=== PATIENT | female | born 1955 | race African-American/Black ===

== ENCOUNTER 2022-09-18 18:56 | Observation (INO) | payer MEDICARE, SELFPAY ==
[2022-09-18 19:05] VITALS: BP 151/81; PULSE 92; RESP 18; TEMP 37; O2SAT 99; BMI 40.8
--- NOTE | 2022-09-18 19:16 | PC.NURSE ---
Pt arrived to floor via [facility] @ 1900
--- NOTE | 2022-09-18 19:43 | EXP.HP ---
History of Present Illness *Admission Date: 09/18/22 *Reason for visit:: Dyspnea *History of present illness: Ms. Norton is a 67-year-old female with a past medical history of Hypertension, Hyperlipidemia, COPD/Asthma overlap syndrome, Beta 2/Alpha 4 Thalassemia, Breast Cancer s/p Lumpectomy. She presents as a transfer from an [facility] due to an acute episode of shortness of air and difficulty breathing that occurred right after presybeterian. The patient was seen on admission to the medical surgical unit. She reports that after presybeterian she was sitting and had an acute episode of shortness of air, she thought it was her asthma and attempted to take inhalers and nebulizers but could not get it to work. She reports feeling hot, but denies dizziness, chest pain or nausea. She called 911 and was taken to [facility] by EMS. On EMS arrival to the patient's home per records she received Solu-Medrol and was placed on 2L nasal cannula. In the ER at the outside hospital records reviewed showed that the patient had an EKG that showed high sensitivity troponin of 71.8, repeat was 250.5. EKG showed NSR with no ST segment elevation or depression with rate of 93. BNP was 507. CBC and CMP were unremarkable. VBG showed a modeerate hypoxemia with pO2 51 and SpO2 was 86 on 21% FiO2. In the ER at the [facility] the patient received Lasix 20 mg iv, Nitroglycerin paste, ASA 81 mg and Plavix 300 mg. The ER Physician spoke with Cardiology and the patient was sent to [facility] for evaluation by Cardiology. On arrival to [facility] she is on room air with oxygen saturation of 99%. Her admitting diagnosis is NSTEMI. Cardiology will be consulted to see. Further labs and testing will be performed. The plan of care was discussed with the patient and her brother at bedside on admission. Both verbalized understanding and agreement with the plan of care. [facility] Disclaimer: The information contained in this section may have been updated after the patient was seen, as this information can be updated by other users. Medical History (Updated 09/18/22 @ 20:58 by Ander Otoole DNP) Asthma-COPD overlap syndrome Breast cancer Thalassemia alpha carrier Surgical History H/O lumpectomy Hx of tonsillectomy Social History (Updated 09/18/22 @ 20:16 by Domenico Bello RN) Smoking Status: Never smoker alcohol intake: never current occupational status: employed Travel in the last 8 weeks: None Review of Systems Review of Systems Review of systems:: pertinent systems reviewed and negative unless documented below Constitutional Constitutional: Reports system reviewed and no additional complaints, except as documented Eyes Eyes: Reports system reviewed and no additional complaints, except as documented ENT Ears, Nose, Mouth, and Throat: Reports system reviewed and no additional complaints, except as documented *Cardiovascular Cardiovascular: Reports dyspnea and Reports leg edema *Respiratory Respiratory: Reports dyspnea *Gastrointestinal Gastrointestinal: Reports system reviewed and no additional complaints, except as documented *Genitourinary Genitourinary: Reports system reviewed and no additional complaints, except as documented *Musculoskeletal Musculoskeletal: Reports system reviewed and no additional complaints, except as documented Integumentary/Breasts Skin/Breast: Reports system reviewed and no additional complaints, except as documented *Neurologic Neurologic: Reports system reviewed and no additional complaints, except as documented Psychiatric Psychiatric: Reports system reviewed and no additional complaints, except as documented Endocrine Endocrine: Reports flushing Hematologic/Lymphatic Hematologic/Lymphatic: Reports system reviewed and no additional complaints, except as documented Allergic/Immunologic Allergic/Immunologic:
[2022-09-18 20:00] VITALS: PULSE 90; O2SAT 97
--- NOTE | 2022-09-18 20:11 | ECG_ITS ---
APPROVED REPORT Exam: Resting ECG HR:91 bpm ECG Measurements Heart Rate 91 AXES AZ 175 P 78 QRSd 83 QRS 60 QT 398 T 63 QTc 446 Conclusion SINUS RHYTHM POSSIBLE RIGHT ATRIAL ENLARGEMENT [0.25mV P-WAVE] BORDERLINE ECG UNCONFIRMED REPORT Electronically signed by : Marko Grant MD 09/19/2022 19:50:31
[2022-09-18 20:16] LABS: Adenovirus,PCR Not Detected (NotDetected); Coronavirus 229E Not Detected (NotDetected); Coronavirus NL63 Not Detected (NotDetected); Coronavirus OC43 Not Detected (NotDetected); Coronovirus HKU1,PCR Not Detected (NotDetected); Human Metapneumovirus Not Detected (NotDetected); Rhinovirus/Enterovirus Not Detected (NotDetected)
[2022-09-18 20:17] LABS: Bordetella Pertussis Not Detected (NotDetected); Chlamydophila Pneumoniae, PCR Not Detected (NotDetected); Coronavirus 19, PCR Not Detected (NotDetected); Influenza A, PCR Not Detected (NotDetected); Influenza AH1, 2009 Not Detected (NotDetected); Influenza AH1, PCR Not Detected (NotDetected); Influenza AH3,PCR Not Detected (NotDetected); Influenza B, PCR Not Detected (NotDetected); Mycoplasma Pneumoniae, PCR Not Detected (NotDetected); Parainfluenza 1, PCR Not Detected (NotDetected); Parainfluenza 2, PCR Not Detected (NotDetected); Parainfluenza 3, PCR Not Detected (NotDetected); Parainfluenza 4, PCR Not Detected (NotDetected); Respiratory Syncytial Virus Not Detected (NotDetected)
[2022-09-18 20:45] LABS: Basophils % 0.4 % (0.1-2.0); Eosinophils % 0.4 % (0.1-12.0); Hematocrit 40.1 % (37.0-47.0); Hemoglobin 12.9 g/dL (12.2-16.2); Lymphocytes # 1.1 K/mm3 (0.7-4.5); Lymphocytes % 14.3 % (10-50); Mean Corpuscular HGB Conc 32.3 g/dL (31.8-35.4); Mean Corpuscular Hemoglobin 27.3 pg (27.0-31.2); Mean Corpuscular Volume 84.5 fl (81-99); Mean Platelet Volume 7.7 fl (7.4-10.4); Monocytes # 0.1 K/mm3 (0.1-1.0); Monocytes % 1.3 % (1.7-9.3); Neutrophils # 6.3 K/mm3 (1.8-7.8); Neutrophils % 83.6 % (37.0-80.0); Platelet Count 299 K/mm3 (142-424); Red Blood Count 4.74 M/mm3 (4.20-5.40); Red Cell Distribution Width 14.8 % (11.5-17.5); White Blood Count 7.5 K/mm3 (4.8-10.8)
[2022-09-18 20:53] LABS: Alanine Aminotransferase 34 U/L (12-78); Albumin Level 4.7 g/dl (3.5-5.0); Albumin/Globulin Ratio 1.3 (1.1-1.8); Alkaline Phosphatase 179 U/L (38-126); Anion Gap 12.7 mEq/L (5-15); Aspartate Amino Transferase 36 U/L (14-36); Bilirubin,Total 0.5 mg/dl (0.2-1.3); Blood Urea Nitrogen 15 mg/dl (7-17); Calcium 9.4 mg/dl (8.4-10.2); Carbon Dioxide 29 mmol/L (22.0-30.0); Chloride 102 mmol/L (98-107); Creatinine Clearance Estimated 83 mL/min (50-200); Estimated Glomerular Filt Rate 84 ml/min (>60); GFR (African American) 101 ML/MIN (>60); Globulin 3.6 g/dL (1.3-3.2); Glucose 139 mg/dl (74-100); Magnesium 2.1 mg/dl (1.6-2.3); Potassium 3.7 mmoL/L (3.5-5.1); Sodium 140 mmol/L (136-145); Total Protein,Serum 8.3 g/dl (6.3-8.2)
[2022-09-18 20:58] LABS: D-Dimer 1.08 ug/mL (0.0-0.5)
[2022-09-18 21:04] LABS: Troponin I 0.17 ng/ml (0.00-0.034)
[2022-09-18 21:22] LABS: Thyroid Stimulating Hormone 0.25 uIU/mL (0.465-4.68)
[2022-09-18 21:52] LABS: Hemoglobin A1C 5.8 % (4.0-6.0)
[2022-09-18 22:02] LABS: Free T4 (Free Thyroxine) 1.28 ng/dl (0.78-2.19)
--- NOTE | 2022-09-18 22:11 | EXP.EVENT.NO ---
basketball scout called and stated iv site had infiltrated with contrast. Following hospital protocol, warm compress, elevation, close clinical monitoring. Patient did not receive CT tonight. IV site in LUE No blistering, patient denies numbness, tingling of extremity, good radial pulses.
--- NOTE | 2022-09-18 22:44 | PC.NURSE ---
Addendum entered by Domenico Bello RN 09/18/22 23:24: *cold compress to left upper arm. Original Note: Radiology states iv 18g L AC blew and infiltrated after contrast given. Left arm is with warm pad and elevated on a pillow above her chest.
[2022-09-18 23:36] LABS: Troponin I 0.22 ng/ml (0.00-0.034)
--- NOTE | 2022-09-18 23:39 | PC.NURSE ---
Ander COPPOLA called about pt's troponin of 0.22 from lab.
[2022-09-18 23:45] VITALS: BP 125/72; PULSE 100; RESP 16; TEMP 36.6; O2SAT 98
[2022-09-19] VITALS (20 sets, daily range): BP systolic 109–135; BP diastolic 47–87; PULSE 77–91; RESP 16–20; TEMP 36.4–37.1; O2SAT 93–99; BMI 41.1
--- NOTE | 2022-09-19 | IR_ITS ---
APPROVED REPORT Patient Location: [facility] Publisher: MELONY Tolentino RT (R) PROCEDURES Left heart catheterization Left ventriculogram Selective coronary angiogram INDICATION Elevated troponin, Acute non-ST elevation myocardial infarction Informed consent was obtained prior to the procedure. COMPLICATIONS None Estimated Blood Loss: Less than 10 ml TECHNIQUE One percent lidocaine used to anesthetize the right anterior aspect of the wrist. The right radial artery was accessed via the Seldinger technique. A 6 Polish sheath was placed in the right radial artery. 150 mg magnesium sulfate, 800 mcg of nitroglycerin, 1mg Lidocaine and 5000 U Heparin were given through the arterial sheath. The papa catheter was also used to perform left heart catheterization, left ventriculogram and selective coronary angiogram. At the end of the procedure the sheath was removed good hemostasis was achieved using Traclet band, patient was transferred to the postop holding area in stable condition. ANGIOGRAPHIC RESULTS The left main artery Normal The left anterior descending artery Large and normal The circumflex artery Dominant normal The right coronary artery Normal The ROBERTO ventriculogram reveals 65 to 70% The left ventricular end-diastolic pressure 10 mmHg IMPRESSION Normal coronary arteries Normal ejection fraction Normal left ventricular end-diastolic pressure PLAN 1. Evaluation of noncardiac symptoms Electronically signed by : Linus Mcdowell MD 09/19/2022 13:51:26
--- NOTE | 2022-09-19 00:35 | PC.NURSE ---
NURSE PRACTITIONER SAID TO WAIT AND PERFORM THE TEST 09-19-22 AFTER CARDIOLOGY HAS SEEN THE PATIENT AND DR. PEACOCK HAS COME IN MAYBE AROUND 9 AM AND SEE IF THE PROCEDURE IS STILL NEEDED BEFORE PERFORMING.
[2022-09-19 01:33] LABS: Troponin I 0.26 ng/ml (0.00-0.034)
--- NOTE | 2022-09-19 01:58 | PC.NURSE ---
Ander COPPOLA called about pt's troponin of of 0.26.
[2022-09-19 05:01] LABS: Chol/HDL Ratio 2.9 (1-3.5); Cholesterol 253 mg/dl (140-200); HDL Cholesterol 87 mg/dl (40-60); Triglycerides 104 mg/dl (30-150); VLDL Cholesterol 21 mg/dL (0-40)
--- NOTE | 2022-09-19 05:20 | PC.NURSE ---
Aox4, up ad mandi, 97% on RA, NPO after MN for possible heart cath, 20g L w sl locked, L upper arm has decreased in swelling from iv that blew during CT IV contrast, no changes noted.
[2022-09-19 05:30] LABS: Troponin I 0.25 ng/ml (0.00-0.034)
[2022-09-19 07:30] LABS: Chloride 103 mmol/L (98-107); Potassium 3.9 mmoL/L (3.5-5.1); Sodium 139 mmol/L (136-145)
[2022-09-19 07:32] LABS: Blood Urea Nitrogen 20 mg/dl (7-17); Creatinine Clearance Estimated 38 mL/min (50-200); Estimated Glomerular Filt Rate 72 ml/min (>60); GFR (African American) 87 ML/MIN (>60)
[2022-09-19 07:33] LABS: Alanine Aminotransferase 35 U/L (12-78); Albumin Level 4.7 g/dl (3.5-5.0); Albumin/Globulin Ratio 1.2 (1.1-1.8); Alkaline Phosphatase 166 U/L (38-126); Anion Gap 12.9 mEq/L (5-15); Aspartate Amino Transferase 42 U/L (14-36); Basophils % 0.4 % (0.1-2.0); Bilirubin,Total 0.6 mg/dl (0.2-1.3); Calcium 9.3 mg/dl (8.4-10.2); Carbon Dioxide 27 mmol/L (22.0-30.0); Eosinophils # 0.1 K/mm3 (0.0-0.4); Eosinophils % 1.4 % (0.1-12.0); Globulin 3.9 g/dL (1.3-3.2); Glucose 137 mg/dl (74-100); Hematocrit 39.4 % (37.0-47.0); Hemoglobin 12.7 g/dL (12.2-16.2); Lymphocytes # 1.5 K/mm3 (0.7-4.5); Lymphocytes % 16.1 % (10-50); Mean Corpuscular HGB Conc 32.3 g/dL (31.8-35.4); Mean Corpuscular Hemoglobin 27.5 pg (27.0-31.2); Mean Corpuscular Volume 85.3 fl (81-99); Mean Platelet Volume 7.7 fl (7.4-10.4); Monocytes # 0.2 K/mm3 (0.1-1.0); Monocytes % 1.9 % (1.7-9.3); Neutrophils # 7.6 K/mm3 (1.8-7.8); Neutrophils % 80.2 % (37.0-80.0); Platelet Count 344 K/mm3 (142-424); Red Blood Count 4.62 M/mm3 (4.20-5.40); Red Cell Distribution Width 14.8 % (11.5-17.5); Total Protein,Serum 8.6 g/dl (6.3-8.2); White Blood Count 9.5 K/mm3 (4.8-10.8)
--- NOTE | 2022-09-19 08:10 | PC.NURSE ---
left arm elevated on rolled blankets, patient rates pain in left upper arm at a 4 on a 10 scale, no drainage noted from IV infiltration site. Patient denies tingling and numbness, she is able to to move left hand and fingers without issue.
--- NOTE | 2022-09-19 08:10 | HMH.PHAINT1 ---
Pharmacy Intervention Comments: Reconciled patient's home medications using patient interview and pharmacy fill history.
--- NOTE | 2022-09-19 09:10 | EXP.CARD.CON ---
History of Present Illness History of Present Illness Consult date: 09/19/22 Requesting physician: Chivo Torres Consult reason: chest pain Chief complaint: chest pain, SOA Additional Medical History:: 1. Hypertension 2. Morbid obesity 3. Asthma/COPD overlap syndrome A. JOSE ANGEL with use of CPAP machine 4. Thalassemia, followed by hematology 5. History of right-sided breast cancer with lumpectomy and 14 lymph nodes removed 2001 A. Chemotherapy and radiation therapy 6. CAD A. History of abnormal stress test 2021 with resultant cardiac cath per patient at [facility] showing no significant stenosis, August 2021 7. Hyperlipidemia, on statin therapy A. LDL 80, 09/19/2022 History of present illness: Ms. Norton is a 67-year-old female with a past medical history of Hypertension, Hyperlipidemia, COPD/Asthma overlap syndrome, Beta 2/Alpha 4 Thalassemia, Breast Cancer s/p Lumpectomy. She presents as a transfer from an [facility] due to an acute episode of shortness of air and difficulty breathing that occurred right after orthodoxy.? The patient was seen on admission to the medical surgical unit.? She reports that after orthodoxy she was sitting and had an acute episode of shortness of air, she thought it was her asthma and attempted to take inhalers and nebulizers but could not get it to work.? She reports feeling hot, but denies dizziness, chest pain or nausea.? She called 911 and was taken to [facility] by EMS.? On EMS arrival to the patient's home per records she received Solu-Medrol and was placed on 2L nasal cannula.? In the ER at the outside hospital records reviewed showed that the patient had an EKG that showed high sensitivity troponin of 71.8, repeat was 250.5.? EKG showed NSR with no ST segment elevation or depression with rate of 93.? BNP was 507.? CBC and CMP were unremarkable. VBG showed a moderate hypoxemia with pO2 51 and SpO2 was 86 on 21% FiO2. ? In the ER at the [facility] the patient received Lasix 20 mg iv, Nitroglycerin paste, ASA 81 mg and Plavix 300 mg.? The ER Physician spoke with Cardiology and the patient was sent to [facility] for evaluation by Cardiology.? On arrival to [facility] she is on room air with oxygen saturation of 99%.? Her admitting diagnosis is NSTEMI.? Cardiology will be consulted to see.? Further labs and testing will be performed.? The plan of care was discussed with the patient and her brother at bedside on admission.? Both verbalized understanding and agreement with the plan of care.? The above per Ander Otoole DNP, for the Hospitalist service. Patient confirms events as noted above. Regarding cardiac history she states she had an abnormal stress test in August of last year. She reportedly had a cardiac catheterization at [facility] which revealed no significant stenosis and no need for stents. We are in the process of trying to obtain those records at this time. Patient did have nitroglycerin paste applied overnight with complaints of headache. Nitropaste was removed this a.m. She does not smoke and is not a diabetic. Elevated D-dimer last evening which prompted an attempt at a CT angio of the chest to rule out pulmonary embolus but due to contrast infiltration of the left arm this was canceled. Outside hospital high-sensitivity troponins noted to be elevated as above with troponins here elevated at 0.17 and peaking at 0.26 now trending down to 0.25 this morning. Patient denies any chest pain at this time. There is tenderness with palpation of the sternal area and into the area of her previous lumpectomy. Patient relates right-sided discomfort intermittently over the last year without etiology by work-up from her hone operator Dr. Howard in [place], [place]. She has also had right lower extremity swelling without etiology as well. Right lower extremity does appear slightly larger than the left but with no pitting edema. PFSH PFS Disclai
--- NOTE | 2022-09-19 13:21 | PC.NURSE ---
Patient going to soap slabber for procedure.
--- NOTE | 2022-09-19 14:25 | PC.NURSE ---
4x4 covered with tegaderm noted to right groin form femoral access, dressing CDI.
--- NOTE | 2022-09-19 16:27 | EXP.DC.SUM ---
General Admission date:: 09/18/22 Discharge date: 09/19/22 HPI HPI HPI: Ms. Norton is a 67-year-old female with a past medical history of Hypertension, Hyperlipidemia, COPD/Asthma overlap syndrome, Beta 2/Alpha 4 Thalassemia, Breast Cancer s/p Lumpectomy. She presents as a transfer from an [facility] due to an acute episode of shortness of air and difficulty breathing that occurred right after yarsanism. The patient was seen on admission to the medical surgical unit. She reports that after yarsanism she was sitting and had an acute episode of shortness of air, she thought it was her asthma and attempted to take inhalers and nebulizers but could not get it to work. She reports feeling hot, but denies dizziness, chest pain or nausea. She called 911 and was taken to [facility] by EMS. On EMS arrival to the patient's home per records she received Solu-Medrol and was placed on 2L nasal cannula. In the ER at the outside hospital records reviewed showed that the patient had an EKG that showed high sensitivity troponin of 71.8, repeat was 250.5. EKG showed NSR with no ST segment elevation or depression with rate of 93. BNP was 507. CBC and CMP were unremarkable. VBG showed a modeerate hypoxemia with pO2 51 and SpO2 was 86 on 21% FiO2. In the ER at the [facility] the patient received Lasix 20 mg iv, Nitroglycerin paste, ASA 81 mg and Plavix 300 mg. The ER Physician spoke with Cardiology and the patient was sent to [facility] for evaluation by Cardiology. On arrival to [facility] she is on room air with oxygen saturation of 99%. Her admitting diagnosis is NSTEMI. Cardiology will be consulted to see. Further labs and testing will be performed. The plan of care was discussed with the patient and her brother at bedside on admission. Both verbalized understanding and agreement with the plan of care. Hospital Course Hospital Course Hospital Course: Pleasant 67-year-old female who presented to [facility] with tightness of chest and shortness of breath. [place] she was having an asthma/COPD attack and was started on her home rescue inhaler therapy. Did not feel she had good response. Went to the ER because of shortness of breath. On presentation found to have elevation in high-sensitivity troponin. [facility] consulted for transfer. Problems addressed as follows: Chest pain with elevated troponins consistent with non-ST elevation NV. - Cardiology consulted. Given patient's symptoms and troponin elevation, was taken for left heart cath. Found to have no significant stenosis or occlusions. Heart function normal. Echocardiogram also obtained showing preserved ejection fraction. At this time, there is no cardiac etiology for patient's chest pain. Suspect troponin elevation which was minor was secondary to type II NSTEMI, supply/demand mismatch with stress of her asthma attack. Given her normal coronary, medically manage. Recommend eval for other etiologies of chest pain. AsthmaCOPD/JOSE ANGEL overlap syndrome -Continue home inhaler treatment. By the time patient arrived to our facility, she had no wheezing, shortness of breath, oxygen requirement. Concern for anxiety component. Further eval with chief media officer as an outpatient. Hypertension, controlled on current medications, continue home regimen Hyperlipidemia, continue statin therapy Medically stable for discharge home. Follow-up with PCP in the next 1 to 2 weeks. Patient symptoms noncardiac. Exam Data for Last 24 hours Vital signs and Labs for Last 24 Hours: Temp Pulse Resp BP Pulse Ox 98.7 F 83 17 119/65 93 L 09/19/22 14:40 09/19/22 14:40 09/19/22 14:40 09/19/22 14:40 09/19/22 14:40 Laboratory Results - last 24 hr 09/18/22 19:58: WBC 7.5, RBC 4.74, Hgb 12.9, Hct 40.1, MCV 84.5, MCH 27.3, MCHC 32.3, RDW 14.8, Plt Count 299, MPV 7.7, Neut % (Auto) 83.6 H, Lymph % (Auto) 14.3, [place] % (A
--- NOTE | 2022-09-19 20:16 | CA_ITS ---
FINAL REPORT TECHNIQUE: Ultrasound images of the deep venous system were obtained from the right groin to the calf veins. CLINICAL HISTORY: Pain, right leg swelling, Obesity, Thalassemia FINDINGS: The deep venous system is normally compressible. Normal flow is identified. IMPRESSION: No evidence of right lower extremity DVT. Reviewed, Interpreted and Dictated by Jose Castillo MD Transcribed by Dorothy Basurto Authenticated and [facility]
== END 2022-09-19 19:52 | disposition home or self-care (01) ==
PROVIDERS: Internal Medicine; Nurse Practitioner Family; Admitting Provider Internal Medicine Adolescent Medicine; PCP Emergency Medicine; Visit Provider Internal Medicine Adolescent Medicine
DX: I21.4 Non-ST elevation (NSTEMI) myocardial infarction (principal); J44.1 Chronic obstructive pulmonary disease with (acute) exacerbation; I10 Essential (primary) hypertension; E78.5 Hyperlipidemia, unspecified; E66.01 Morbid (severe) obesity due to excess calories; Z68.41 Body mass index [BMI] 40.0-44.9, adult; D56.9 Thalassemia, unspecified; R07.89 Other chest pain; Z79.899 Other long term (current) drug therapy; R07.9 Chest pain, unspecified; Z20.822 Contact with and (suspected) exposure to COVID-19
CPT/HCPCS: G0378; G0379; 36415; 80053; 80061; 83036; 83735; 84439; 84443; 84484; 85025; 85378; 87581; 87632; 87798; 93005; 93306; 93458; 93971; 94640; 99152; C1725; C1769; C9803; J1644; Q9967; U0003; U0005

== ENCOUNTER → 2022-09-26 20:06 | Outpatient (CLI) | payer MEDICARE, SELFPAY ==
[2022-09-26 20:38] LABS: Hematocrit 33.9 % (37.0-47.0); Hemoglobin 10.9 g/dL (12.2-16.2)
[2022-09-26 21:01] LABS: Blood Urea Nitrogen 16 mg/dl (7-17); Estimated Glomerular Filt Rate 72 ml/min (>60); GFR (African American) 87 ML/MIN (>60)
== END ==
PROVIDERS: PCP Emergency Medicine; Visit Provider Internal Medicine Adolescent Medicine
DX: I10 Essential (primary) hypertension (principal); E78.5 Hyperlipidemia, unspecified
CPT/HCPCS: 36415; 82565; 84520; 85014; 85018

== ENCOUNTER 2023-05-26 00:23 | Observation (INO) | payer MEDICARE, SELFPAY ==
[2023-05-26] VITALS (11 sets, daily range): BP systolic 112–164; BP diastolic 56–85; PULSE 77–115; RESP 16–20; TEMP 36.7–37.3; O2SAT 94–97; BMI 40.5; BMI 40.7
--- NOTE | 2023-05-26 00:31 | PC.NURSE ---
PT ARRIVED TO FLOOR AT THIS TIME
--- NOTE | 2023-05-26 00:51 | CT_ITS ---
PROCEDURE INFORMATION: Exam: CTA Chest With Contrast Exam date and time: 05/26/2023 2:51 AM Age: 67 years old Clinical indication: Sternal or substernal pain; Additional info: Chest pain TECHNIQUE: Imaging protocol: Computed tomographic angiography of the chest with contrast. Exam focused on the arteries. 3D rendering (Not supervised by radiologist): MIP and/or 3D reconstructed images were created by the technologist. Radiation optimization: All CT scans at this facility use at least one of these dose optimization techniques: automated exposure control; mA and/or kV adjustment per patient size (includes targeted exams where dose is matched to clinical indication); or iterative reconstruction. Contrast material: ISOVUE; Contrast volume: 70 ml; Contrast route: INTRAVENOUS (IV); REPORTING DATA: Count of CT and Cardiac NM exams in prior 12 months: This patient has received [address] and 0 known cardiac nuclear medicine studies in the 12 months prior to the current study. COMPARISON: 1. CT ANGIO CHEST PE PROTOCOL 09/18/2022 9:50 PM 2. CR CHEST SINGLE VIEW/PORTABLE 09/18/2022 2:52 PM FINDINGS: Pulmonary arteries: There is fair opacification of the pulmonary arterial tree. No central pulmonary arterial filling defect is seen. Aorta: There is atherosclerotic disease of the visualized aorta and its major branch vessels. Other arteries: Subsegmental vessels are not well evaluated due to contrast timing. Lungs: Calcified granuloma in the right lower lobe. Scattered areas of bronchial wall thickening which are likely chronic inflammatory. A few areas of subpleural reticulation are noted, nonspecific. Evaluation for small pulmonary nodules is precluded by patient condition. Fleischner Society guidelines are n/a. Pleural spaces: Unremarkable. No pneumothorax. No pleural effusion. Heart: Unremarkable. No cardiomegaly. No pericardial effusion. Lymph nodes: Unremarkable. No enlarged lymph nodes. Bones/joints: There is diffuse degenerative disease of the visualized osseous structures. Soft tissues: Unremarkable. Other findings: Motion artifact mildly limits evaluation. IMPRESSION: 1. No central pulmonary arterial filling defect is seen. Subsegmental vessels are not well evaluated due to contrast timing. 2. No dense parenchymal consolidation, pleural effusion, or pneumothorax.
--- NOTE | 2023-05-26 00:54 | EXP.HP ---
History of Present Illness *Admission Date: 05/26/23 *Reason for visit:: SOB *History of present illness: Patient is a 67-year-old female with past medical history of asthma and COPD, hyperlipidemia, hypertension, thalassemia, and morbid obesity who came to the hospital as a referral from [facility] for evaluation of shortness of breath, and chest tightness, patient stated that she has been having upper respiratory symptoms since few days ago. Reported being exposed to COVID-19. Patient was hypoxic on arrival, initial workup found to be positive RSV, negative for COVID. After couple rounds of Solu-Medrol and DuoNeb nebulization patient without showing any improvement. Transfer was requested to our facility due to lack of beds. Admitted for further treatment and management. [facility] Disclaimer: The information contained in this section may have been updated after the patient was seen, as this information can be updated by other users. Medical History Asthma-COPD overlap syndrome Breast cancer Thalassemia alpha carrier Surgical History H/O lumpectomy Hx of tonsillectomy Social History (Updated 05/26/23 @ 00:58 by Sue Calloway RN) Smoking Status: Never smoker alcohol intake: never current occupational status: employed Travel in the last 8 weeks: None Review of Systems Review of Systems Review of systems:: pertinent systems reviewed and negative unless documented below Meds Home Medications and Allergies Home Medications Medication Instructions Recorded Confirmed Type albuterol sulfate 90 mcg/actuation 2 puff inhalation Q4HP PRN 09/18/22 05/26/23 History aerosol inhaler Shortness Of Breath aspirin 81 mg chewable tablet 81 mg PO DAILY Heart health 09/18/22 05/26/23 History atorvastatin 80 mg tablet 80 mg PO HS Cholesterol 09/18/22 05/26/23 History budesonide 160 mcg-glycopyr 9 2 puff inhalation BID Breathing 09/18/22 05/26/23 History mcg-formot 4.8 mcg/actuation HFA Problems inhaler (Breztri Aerosphere) carvedilol 3.125 mg tablet 3.125 mg PO BID High blood pressure 09/18/22 05/26/23 History coenzyme Q10 200 mg capsule (Co 200 mg PO DAILY Supplement 05/26/23 05/26/23 History Q-10) empagliflozin 10 mg tablet 10 mg PO DAILY Heart Failure 05/26/23 05/26/23 History (Jardiance) furosemide 40 mg tablet 40 mg PO DAILY PRN swelling 05/26/23 05/26/23 History omeprazole 40 mg capsule,delayed 40 mg PO BID Acid Reflux 05/26/23 05/26/23 History release spironolactone 25 mg tablet 25 mg PO DAILY Fluid 05/26/23 05/26/23 History torsemide 20 mg tablet 20 mg PO DAILY Fluid 05/26/23 05/26/23 History New Prescriptions to Start Prescriptions: Allergies Allergy/AdvReac Type Severity Reaction Status Date / Time cephalexin [From Keflex] AdvReac Rash Verified 01/17/23 11:56 novocain AdvReac Mild Rash Uncoded 01/17/23 11:56 Exam Constitutional Constitutional: mild distress and cooperative *Routine HEENT Exam Head: Present normocephalic and atraumatic Eye: Present EOMI, PERRL and normal accommodation ENT: Present mucous membranes moist *Routine Neck Exam Neck: Present supple, full ROM and trachea midline *Routine Respiratory Exam Respiratory: Present decreased breath sounds, prolonged expiratory phase, wheezes, diminished air movement and symmetric chest movement *Routine Cardiovascular Exam Cardiovascular: Present RRR, Normal S2 and tachycardia *Routine Abdominal Exam Abdominal: Present soft and normoactive bowel sounds; Absent organomegaly *Routine Rectal Exam Rectal:: deferred *Routine Genitalia Exam Genitalia:: deferred *Routine Extremities Exam Extremities: Present edema, full ROM, pulses intact and normal capillary refill; Absent cyanosis or clubbing *Routine Skin Exam Skin: Present intact, dry and warm *Routine Neurological Exam Neurological: Present alert, oriented X3,
[2023-05-26 01:35] LABS: Basophils % 0.1 % (0.1-2.0); Eosinophils % 0.3 % (0.1-12.0); Hematocrit 40.1 % (37.0-47.0); Hemoglobin 13.4 g/dL (12.2-16.2); Lymphocytes # 0.8 K/mm3 (0.7-4.5); Mean Corpuscular HGB Conc 33.5 g/dL (31.8-35.4); Mean Corpuscular Hemoglobin 28.8 pg (27.0-31.2); Mean Corpuscular Volume 85.8 fl (81-99); Mean Platelet Volume 7.7 fl (7.4-10.4); Monocytes # 0.1 K/mm3 (0.1-1.0); Monocytes % 1.2 % (1.7-9.3); Neutrophils % 86.3 % (37.0-80.0); Platelet Count 292 K/mm3 (142-424); Red Blood Count 4.67 M/mm3 (4.20-5.40); Red Cell Distribution Width 15.1 % (11.5-17.5)
[2023-05-26 01:37] LABS: MANUAL DIFFERENTIAL MANUAL DIFFERENTIAL (MANUAL DIFF)
[2023-05-26 01:43] LABS: Alanine Aminotransferase 44 U/L (12-78); Albumin Level 4.7 g/dl (3.5-5.0); Albumin/Globulin Ratio 1.2 (1.1-1.8); Alkaline Phosphatase 142 U/L (38-126); Anion Gap 11.8 mEq/L (5-15); Aspartate Amino Transferase 41 U/L (14-36); Bilirubin,Total 0.5 mg/dl (0.2-1.3); Blood Urea Nitrogen 12 mg/dl (7-17); Calcium 9.2 mg/dl (8.4-10.2); Carbon Dioxide 29 mmol/L (22.0-30.0); Chloride 103 mmol/L (98-107); Creatinine Clearance Estimated 82 mL/min (50-200); Estimated Glomerular Filt Rate 72 ml/min (>60); GFR (African American) 87 ML/MIN (>60); Globulin 3.8 g/dL (1.3-3.2); Glucose 155 mg/dl (74-100); Potassium 3.8 mmoL/L (3.5-5.1); Sodium 140 mmol/L (136-145); Total Protein,Serum 8.5 g/dl (6.3-8.2)
[2023-05-26 01:44] LABS: Lactic Acid 2.4 mmol/L (0.7-2.1)
[2023-05-26 01:57] LABS: Lymphocytes % 14 % (10-50); Monocytes % 3 % (2-9); Neutrophils % 83 % (42-76); Platelet Estimate Normal; RBC Morphology Normal; Total Cells Counted 100
[2023-05-26 02:00] LABS: Troponin I < 0.01 ng/ml (0.00-0.034)
--- NOTE | 2023-05-26 02:24 | XR_ITS ---
PROCEDURE INFORMATION: Exam: XR Chest Exam date and time: 05/26/2023 3:19 AM Age: 67 years old Clinical indication: Shortness of breath; Sternal or substernal pain; Additional info: SOB and chest pain TECHNIQUE: Imaging protocol: Radiologic exam of the chest. Views: 1 view. COMPARISON: CT ANGIO CHEST PE PROTOCOL 05/26/2023 2:51 AM FINDINGS: Lungs: No evidence of acute pulmonary disease or infiltrates; lung jackson appear clear. Pleural spaces: No evidence of pleural effusion, pneumothorax, or pleural thickening in the visualized pleural spaces. Heart/Mediastinum: Stable cardiac and mediastinal contours. Vasculature: There are calcifications of the aortic arch. Bones/joints: No evidence of acute osseous abnormalities within the visualized portions of the thoracic spine and ribs. Osseous structures appear appropriate for patient age. IMPRESSION: No dense parenchymal consolidation, pleural effusion, or pneumothorax.
[2023-05-26 04:16] LABS: Troponin I < 0.01 ng/ml (0.00-0.034)
[2023-05-26 05:08] LABS: Reflex Lactic Add Lactic Reflex
--- NOTE | 2023-05-26 08:06 | HMH.PHAINT1 ---
Pharmacy Intervention Comments: MEDICATION RECONCILIATION COMPLETED ON PATIENT USING EXTERNAL FILL HISTORY FROM PHARMACY AND LIST FROM CARDIOLOGY OFFICE. -SHAMEKA JACKSON, PATRICED
[2023-05-26 08:20] LABS: Basophils % 0.3 % (0.1-2.0); Eosinophils # 0.1 K/mm3 (0.0-0.4); Eosinophils % 0.9 % (0.1-12.0); Hemoglobin 12.7 g/dL (12.2-16.2); Lymphocytes # 0.9 K/mm3 (0.7-4.5); Lymphocytes % 14.9 % (10-50); Mean Corpuscular HGB Conc 33.3 g/dL (31.8-35.4); Mean Corpuscular Hemoglobin 28.4 pg (27.0-31.2); Mean Platelet Volume 7.5 fl (7.4-10.4); Monocytes # 0.1 K/mm3 (0.1-1.0); Monocytes % 1.7 % (1.7-9.3); Neutrophils # 4.9 K/mm3 (1.8-7.8); Neutrophils % 82.1 % (37.0-80.0); Platelet Count 277 K/mm3 (142-424); Red Blood Count 4.46 M/mm3 (4.20-5.40); Red Cell Distribution Width 15.2 % (11.5-17.5)
[2023-05-26 08:29] LABS: Chloride 104 mmol/L (98-107)
[2023-05-26 08:30] LABS: Potassium 4.2 mmoL/L (3.5-5.1); Sodium 138 mmol/L (136-145)
[2023-05-26 08:32] LABS: Alanine Aminotransferase 36 U/L (12-78); Alkaline Phosphatase 142 U/L (38-126); Anion Gap 9.2 mEq/L (5-15); Aspartate Amino Transferase 36 U/L (14-36); Bilirubin,Total 0.5 mg/dl (0.2-1.3); Blood Urea Nitrogen 14 mg/dl (7-17); Carbon Dioxide 29 mmol/L (22.0-30.0); Cholesterol 250 mg/dl (140-200); Creatinine Clearance Estimated 38 mL/min (50-200); Estimated Glomerular Filt Rate 72 ml/min (>60); GFR (African American) 87 ML/MIN (>60); Triglycerides 60 mg/dl (30-150); VLDL Cholesterol 12 mg/dL (0-40)
[2023-05-26 08:33] LABS: Albumin Level 4.4 g/dl (3.5-5.0); Albumin/Globulin Ratio 1.3 (1.1-1.8); Chol/HDL Ratio 2.4 (1-3.5); Globulin 3.4 g/dL (1.3-3.2); Glucose 156 mg/dl (74-100); HDL Cholesterol 103 mg/dl (40-60); Magnesium 1.9 mg/dl (1.6-2.3); Total Protein,Serum 7.8 g/dl (6.3-8.2)
[2023-05-26 08:34] LABS: INR 0.96 (0.9-1.1); Prothrombin Time 10.4 seconds (10.1-12.5)
[2023-05-26 08:37] LABS: Lactic Acid Follow Up (RFLX 1) 1.2 mmol/L (0.7-2.1)
[2023-05-26 08:54] LABS: Troponin I < 0.01 ng/ml (0.00-0.034)
--- NOTE | 2023-05-26 16:51 | PC.NURSE ---
aox4, ambulating with standby assist. shower today. 1lnc for o2 support.
[2023-05-27] VITALS (12 sets, daily range): BP systolic 118–162; BP diastolic 53–78; PULSE 84–110; RESP 16–20; TEMP 36.5–37.7; O2SAT 90–93; BMI 40.2
--- NOTE | 2023-05-27 05:00 | PC.NURSE ---
Patient has had a good night tonight. Has been able to sleep most of the night. Has complained of pain x2 through the shift in that right side of the chest, but states it get better with the morphine. Was on 1L NC when patient switched to her Cpap to sleep. No other issues were noted
[2023-05-27 07:52] LABS: Basophils % 0.3 % (0.1-2.0); Chloride 104 mmol/L (98-107); Eosinophils % 0.2 % (0.1-12.0); Hematocrit 36.1 % (37.0-47.0); Hemoglobin 12.1 g/dL (12.2-16.2); Lymphocytes # 2.4 K/mm3 (0.7-4.5); Lymphocytes % 28.5 % (10-50); Mean Corpuscular HGB Conc 33.4 g/dL (31.8-35.4); Mean Corpuscular Hemoglobin 28.5 pg (27.0-31.2); Mean Corpuscular Volume 85.3 fl (81-99); Mean Platelet Volume 7.9 fl (7.4-10.4); Monocytes # 0.4 K/mm3 (0.1-1.0); Monocytes % 4.8 % (1.7-9.3); Neutrophils # 5.5 K/mm3 (1.8-7.8); Neutrophils % 66.1 % (37.0-80.0); Platelet Count 289 K/mm3 (142-424); Potassium 4.1 mmoL/L (3.5-5.1); Red Blood Count 4.24 M/mm3 (4.20-5.40); Red Cell Distribution Width 15.2 % (11.5-17.5); Sodium 138 mmol/L (136-145); White Blood Count 8.3 K/mm3 (4.8-10.8)
[2023-05-27 07:55] LABS: Blood Urea Nitrogen 17 mg/dl (7-17); Creatinine Clearance Estimated 38 mL/min (50-200); Estimated Glomerular Filt Rate 63 ml/min (>60); GFR (African American) 76 ML/MIN (>60)
[2023-05-27 07:56] LABS: Anion Gap 9.1 mEq/L (5-15); Calcium 8.8 mg/dl (8.4-10.2); Carbon Dioxide 29 mmol/L (22.0-30.0); Glucose 111 mg/dl (74-100); Magnesium 2.1 mg/dl (1.6-2.3)
--- NOTE | 2023-05-27 10:33 | CT_ITS ---
PROCEDURE INFORMATION: Exam: CT Abdomen And Pelvis Without Contrast Exam date and time: 05/27/2023 10:57 AM Age: 67 years old Clinical indication: Abdominal pain; Additional info: Ruq abd pain TECHNIQUE: Imaging protocol: Computed tomography of the abdomen and pelvis without contrast. Radiation optimization: All CT scans at this facility use at least one of these dose optimization techniques: automated exposure control; mA and/or kV adjustment per patient size (includes targeted exams where dose is matched to clinical indication); or iterative reconstruction. REPORTING DATA: Count of CT and Cardiac NM exams in prior 12 months: This patient has received 2 known CTs and 0 known cardiac nuclear medicine studies in the 12 months prior to the current study. COMPARISON: CT ANGIO CHEST PE PROTOCOL 05/26/2023 2:51 AM FINDINGS: Lungs: New right basilar airspace consolidation posteriorly with associated pleural thickening. Worsening bronchial wall thickening in the right lower lobe. Progression since CTA 1 day prior. Likely bronchitis/pneumonitis. Calcified granuloma stable lateral right lower lobe. Liver: Normal. No mass. Gallbladder and bile ducts: Normal. No calcified stones. No ductal dilation. Pancreas: Normal. No ductal dilation. Spleen: Normal. No splenomegaly. Adrenal glands: Normal. No mass. Kidneys and ureters: Normal. No hydronephrosis. Stomach and bowel: Unremarkable. No obstruction. No mucosal thickening. Appendix: No evidence of appendicitis. Intraperitoneal space: Unremarkable. No free air. No significant fluid collection. Vasculature: Unremarkable. No abdominal aortic aneurysm. Lymph nodes: Unremarkable. No enlarged lymph nodes. Urinary bladder: Unremarkable as visualized. Reproductive: Unremarkable as visualized. Bones/joints: Unremarkable. No acute fracture. Soft tissues: Unremarkable. IMPRESSION: New right basilar airspace consolidation posteriorly with associated pleural thickening. Worsening bronchial wall thickening in the right lower lobe. Progression since CTA 1 day prior. Likely bronchitis/pneumonitis.
--- NOTE | 2023-05-27 10:55 | PC.NURSE ---
off floor with radiology
--- NOTE | 2023-05-27 17:31 | EXP.PN ---
Subjective *Date: 05/27/23 *Time: 17:31 Interval history: patient was seen and evaluated at the bedside. denies chest pain, shortness of breath, nausea, vomiting, abdominal pain. Patient does not have any complaints at this time. feels overall the same Exam Data for Last 24 hours Vital signs and Labs for Last 24 Hours: Temp Pulse Resp BP Pulse Ox O2 Del Method O2 Flow Rate 98.2 F 98 H 16 133/64 93 L Room Air 1 05/27/23 16:00 05/27/23 16:00 05/27/23 16:00 05/27/23 16:00 05/27/23 16:00 05/27/23 16:00 05/27/23 07:00 Laboratory Results - last 24 hr 05/27/23 06:25: WBC 8.3 D, RBC 4.24, Hgb 12.1 L, Hct 36.1 L, MCV 85.3, MCH 28.5, MCHC 33.4, RDW 15.2, Plt Count 289, MPV 7.9, Neut % (Auto) 66.1, Lymph % (Auto) 28.5, [place] % (Auto) 4.8, Eos % (Auto) 0.2, Baso % (Auto) 0.3, Neut # (Auto) 5.5, Lymph # (Auto) 2.4, [place] # (Auto) 0.4, Eos # (Auto) 0.0, Baso # (Auto) 0.0, Sodium 138, Potassium 4.1, Chloride 104, Carbon Dioxide 29, Anion Gap 9.1, BUN 17, Creatinine 0.90, Estimated Creat Clear 38, Estimated GFR 63, Est GFR ( Amer) 76, Glucose 111 H D, Calcium 8.8, Magnesium 2.1 D I & O for Last 24 hours: Intake & Output 05/24/23 05/25/23 05/26/23 05/27/23 23:59 23:59 23:59 23:59 Intake Total 1080 / 1080 480 / 480 Output Total 0 / 0 0 / 0 Balance 1080 / 1080 480 / 480 Weight 94.149 kg 93.032 kg Constitutional Constitutional: no acute distress *Routine HEENT Exam Head: Present normocephalic Eye: Present EOMI and PERRL ENT: Present mucous membranes moist *Routine Neck Exam Neck: Present supple; Absent lymphadenopathy *Routine Respiratory Exam Respiratory: Present CTA bilaterally *Routine Cardiovascular Exam Cardiovascular: Present RRR *Routine Abdominal Exam Abdominal: Present soft and normoactive bowel sounds; Absent tenderness *Routine Extremities Exam Extremities: Absent cyanosis, clubbing or edema *Routine Skin Exam Skin: Present warm; Absent rash *Routine Neurological Exam Neurological: Present alert and oriented X3 Assessment and Plan *Assessment and plan (1) Non-cardiac chest pain: Status: Acute Category: Medical Code(s): R07.89 - Other chest pain (2) Upper respiratory infection: Status: Acute Qualifiers: URI type: unspecified URI Qualified Code(s): J06.9 - Acute upper respiratory infection, unspecified Category: Medical Code(s): J06.9 - Acute upper respiratory infection, unspecified (3) Acute bronchitis due to respiratory syncytial virus: Status: Acute Category: Medical Code(s): J20.5 - Acute bronchitis due to respiratory syncytial virus (4) COPD exacerbation: Status: Acute Category: Medical Code(s): J44.1 - Chronic obstructive pulmonary disease with (acute) exacerbation (5) Asthma-COPD overlap syndrome: Status: Acute Category: Medical Code(s): J44.9 - Chronic obstructive pulmonary disease, unspecified (6) Hyperlipidemia: Status: Acute Qualifiers: Hyperlipidemia type: unspecified Qualified Code(s): E78.5 - Hyperlipidemia, unspecified Category: Medical Code(s): E78.5 - Hyperlipidemia, unspecified (7) Hypertension: Status: Acute Qualifiers: Hypertension type: unspecified Qualified Code(s): I10 - Essential (primary) hypertension Category: Medical Code(s): I10 - Essential (primary) hypertension (8) Thalassemia: Status: Acute Qualifiers: Thalassemia type: unspecified type Qualified Code(s): D56.9 - Thalassemia, unspecified Category: Medical Code(s): D56.9 - Thalassemia, unspecified (9) Morbid obesity with BMI of 40.0-44.9, adult: Status: Acute Category: Medical Code(s): E66.01 - Morbid (severe) obesity due to excess calories; Z68.41 - Body mass index [BMI] 40.0-44.9, adult Plan Patient is a 67-year-old female with past medical history of asthma
--- NOTE | 2023-05-27 18:40 | PC.NURSE ---
pt has done well today. she has been on RA and saturating in the low 90s. has gotten up multiple times with SBA.
[2023-05-28] VITALS (14 sets, daily range): BP systolic 117–152; BP diastolic 60–86; PULSE 70–94; RESP 16–22; TEMP 36.4–36.9; O2SAT 88–97; BMI 41.3
--- NOTE | 2023-05-28 05:14 | PC.NURSE ---
Patient has had a decent night. She was on RA until she switched to cpap to sleep. She did have one instance of being SOB. But when she sat up in bed it got better. Patient did get a shower, was stand by assist with that and her sheet were changed as well. Patient has only complained of pain once in the right side of the chest. No other issues were noted
--- NOTE | 2023-05-28 15:16 | EXP.PN ---
Subjective *Date: 05/28/23 *Time: 15:16 Interval history: patient was seen and evaluated at the bedside. denies chest pain, shortness of breath, nausea, vomiting, abdominal pain. Patient does not have any complaints at this time. feels overall the same Exam Data for Last 24 hours Vital signs and Labs for Last 24 Hours: Temp Pulse Resp BP Pulse Ox O2 Del Method O2 Flow Rate 97.7 F 82 17 142/67 H 96 Room Air 2 05/28/23 15:03 05/28/23 15:03 05/28/23 15:03 05/28/23 15:03 05/28/23 15:03 05/28/23 15:03 05/27/23 18:44 Laboratory Results - last 24 hr 05/27/23 06:25: Procalcitonin 0.070 I & O for Last 24 hours: Intake & Output 05/25/23 05/26/23 05/27/23 05/28/23 23:59 23:59 23:59 23:59 Intake Total 1080 / 1080 840 / 1090 730 / 730 Output Total 0 / 0 0 / 0 0 / 0 Balance 1080 / 1080 840 / 1090 730 / 730 Weight 94.149 kg 93.032 kg 95.345 kg Constitutional Constitutional: no acute distress *Routine HEENT Exam Head: Present normocephalic Eye: Present EOMI and PERRL ENT: Present mucous membranes moist *Routine Neck Exam Neck: Present supple; Absent lymphadenopathy *Routine Respiratory Exam Respiratory: Present CTA bilaterally *Routine Cardiovascular Exam Cardiovascular: Present RRR *Routine Abdominal Exam Abdominal: Present soft and normoactive bowel sounds; Absent tenderness *Routine Extremities Exam Extremities: Absent cyanosis, clubbing or edema *Routine Skin Exam Skin: Present warm; Absent rash *Routine Neurological Exam Neurological: Present alert and oriented X3 Assessment and Plan *Assessment and plan (1) Non-cardiac chest pain: Status: Acute Category: Medical Code(s): R07.89 - Other chest pain (2) Upper respiratory infection: Status: Acute Qualifiers: URI type: unspecified URI Qualified Code(s): J06.9 - Acute upper respiratory infection, unspecified Category: Medical Code(s): J06.9 - Acute upper respiratory infection, unspecified (3) Acute bronchitis due to respiratory syncytial virus: Status: Acute Category: Medical Code(s): J20.5 - Acute bronchitis due to respiratory syncytial virus (4) COPD exacerbation: Status: Acute Category: Medical Code(s): J44.1 - Chronic obstructive pulmonary disease with (acute) exacerbation (5) Asthma-COPD overlap syndrome: Status: Acute Category: Medical Code(s): J44.9 - Chronic obstructive pulmonary disease, unspecified (6) Hyperlipidemia: Status: Acute Qualifiers: Hyperlipidemia type: unspecified Qualified Code(s): E78.5 - Hyperlipidemia, unspecified Category: Medical Code(s): E78.5 - Hyperlipidemia, unspecified (7) Hypertension: Status: Acute Qualifiers: Hypertension type: unspecified Qualified Code(s): I10 - Essential (primary) hypertension Category: Medical Code(s): I10 - Essential (primary) hypertension (8) Thalassemia: Status: Acute Qualifiers: Thalassemia type: unspecified type Qualified Code(s): D56.9 - Thalassemia, unspecified Category: Medical Code(s): D56.9 - Thalassemia, unspecified (9) Morbid obesity with BMI of 40.0-44.9, adult: Status: Acute Category: Medical Code(s): E66.01 - Morbid (severe) obesity due to excess calories; Z68.41 - Body mass index [BMI] 40.0-44.9, adult Plan Patient is a 67-year-old female with past medical history of asthma COPD who presented to hospital with shortness of breath Assessment Acute bronchitis, RSV bronchitis Hypertension Hyperlipidemia Plan Continue with DuoNebs Continue oxygen support Continue Solu-Medrol Consult pulmonary progress CT abdomen pelvis performed today does show new right Airspace consolidation suggestive of pneumonitis Start cefepime Check procalcitonin Monitor and replace electrolytes DVT prophylaxis-Lovenox stable for discharge bria
--- NOTE | 2023-05-28 19:28 | PC.NURSE ---
PT IS RESTING IN BED WITH FAMILY AT BEDSIDE. ALERT AND ORIENTED X4. AMBULATES TO THE BATHROOM WITH 1 ASSIST. MEDICATED PER MAR FOR RIGHT SIDE PAIN. 2 + PITTING EDEMA NOTED TO BLE. WILL CONTINUE TO MONITOR.
[2023-05-29] VITALS (7 sets, daily range): BP systolic 130–147; BP diastolic 70–73; PULSE 60–93; RESP 16–18; TEMP 36.5–36.7; O2SAT 91–97; BMI 42.2
--- NOTE | 2023-05-29 05:25 | PC.NURSE ---
Patient has had a great night. Has tolerated RA and her cpap to sleep. Has not required any pain medication for her right sided chest pain. Patient has had no complaints this shift. Family is at bedside
[2023-05-29 09:53] LABS: Basophils # 0.1 K/mm3 (0-0.2); Basophils % 0.6 % (0.1-2.0); Eosinophils % 0.4 % (0.1-12.0); Hematocrit 34.6 % (37.0-47.0); Hemoglobin 11.6 g/dL (12.2-16.2); Lymphocytes # 2.9 K/mm3 (0.7-4.5); Mean Corpuscular HGB Conc 33.7 g/dL (31.8-35.4); Mean Corpuscular Hemoglobin 28.7 pg (27.0-31.2); Mean Corpuscular Volume 85.2 fl (81-99); Mean Platelet Volume 8.7 fl (7.4-10.4); Monocytes # 0.4 K/mm3 (0.1-1.0); Neutrophils # 4.3 K/mm3 (1.8-7.8); Platelet Count 292 K/mm3 (142-424); Red Blood Count 4.06 M/mm3 (4.20-5.40); Red Cell Distribution Width 15.1 % (11.5-17.5); White Blood Count 7.6 K/mm3 (4.8-10.8)
[2023-05-29 09:59] LABS: Chloride 109 mmol/L (98-107); Sodium 141 mmol/L (136-145)
[2023-05-29 10:00] LABS: Potassium 3.5 mmoL/L (3.5-5.1)
--- NOTE | 2023-05-29 10:00 | EXP.PULM.CON ---
[facility] Disclaimer: The information contained in this section may have been updated after the patient was seen, as this information can be updated by other users. Medical History Asthma-COPD overlap syndrome Breast cancer Thalassemia alpha carrier Surgical History H/O lumpectomy Hx of tonsillectomy Social History (Updated 05/26/23 @ 00:58 by Sue Calloway RN) Smoking Status: Never smoker alcohol intake: never current occupational status: employed Travel in the last 8 weeks: None Review of Systems Constitutional Constitutional: Reports anorexia, Reports body ache(s) and Reports fatigue Eyes Eyes: Denies eye discharge, Denies dry eyes, Denies irritation and Denies itchy eyes ENT Ears, Nose, Mouth, and Throat: Denies epistaxis, Denies facial pain, Denies lip swelling and Denies throat swelling *Cardiovascular Cardiovascular: Reports dyspnea and Reports dyspnea on exertion *Respiratory Respiratory: Reports chest congestion, Reports cough, Reports dyspnea, Reports dyspnea on exertion, Denies excessive phlegm production, Reports pain on inspiration, Reports pain with cough and Reports wheezing *Gastrointestinal Gastrointestinal: Denies abdominal pain, Denies belching and Denies cramping *Musculoskeletal Musculoskeletal: Reports back pain, Reports myalgias and Reports other (No small joint swelling or Pain) Psychiatric Psychiatric: Denies homicidal ideation and Denies suicidal ideation Endocrine Endocrine: Reports fatigue and Denies heat intolerance Hematologic/Lymphatic Hematologic/Lymphatic: Denies easy bleeding and Denies lymphadenopathy Allergic/Immunologic Allergic/Immunologic: Denies itchy eyes, Denies lip swelling, Denies throat swelling and Reports wheezing Pulmonology Exam Inpatient Vital signs and Labs for Last 24 Hours: Temp Pulse Resp BP Pulse Ox O2 Del Method O2 Flow Rate 97.7 F 80 16 130/73 91 L Room Air 2 05/29/23 07:24 05/29/23 08:00 05/29/23 07:24 05/29/23 07:24 05/29/23 07:24 05/29/23 08:09 05/27/23 18:44 FiO2 21 05/28/23 17:55 Laboratory Results - last 24 hr 05/29/23 09:45: WBC 7.6, RBC 4.06 L, Hgb 11.6 L, Hct 34.6 L, MCV 85.2, MCH 28.7, MCHC 33.7, RDW 15.1, Plt Count 292, MPV 8.7, Neut % (Auto) 56.0, Lymph % (Auto) 38.0, [place] % (Auto) 5.0, Eos % (Auto) 0.4, Baso % (Auto) 0.6, Neut # (Auto) 4.3, Lymph # (Auto) 2.9, [place] # (Auto) 0.4, Eos # (Auto) 0.0, Baso # (Auto) 0.1 I & O for Labs for Last 24 Hours: Intake & Output 05/26/23 05/27/23 05/28/23 05/29/23 23:59 23:59 23:59 23:59 Intake Total 1080 / 1080 840 / 1090 1400 / 1400 0 / 0 Output Total 0 / 0 0 / 0 0 / 0 0 / 0 Balance 1080 / 1080 840 / 1090 1400 / 1400 0 / 0 Weight 207 lb 9.008 oz 205 lb 1.6 oz 210 lb 3.2 oz 214 lb 14.4 oz Microbiology Reports for the Last 24 Hours: Microbiology 05/26/23 10:40 Sputum - Expectorated Sputum Gram Stain - Final Constitutional: Present moderate distress Head: Present normocephalic and atraumatic ENT: Present normal exam, normal oropharynx and mucous membranes moist Neck: Present normal inspection and full ROM Respiratory: Present prolonged expiratory phase, respiratory distress, wheezes, diminished air movement and able to speak in complete sentences Cardiac: Present S1/S2, Tachycardia and radial pulses present GI: Present soft and distention; Absent tenderness or guarding Rectal (female): Present deferred (female): Present deferred Skin: Present intact; Absent cyanosis or jaundice Neuro: Present alert, awake and oriented x 3 Extremities: Present normal inspection; Absent clubbing or cyanosis Psychiatric: Present normal affect and cooperative Meds Home Medications and Allergies Home Medications Medication Instructions Recorded Confirmed Type albuterol sulfate 90 mcg/actuation 2 puff inhalation Q4HP PRN 09/18/22 05/26/23 History aerosol inhaler Shortness Of Br
[2023-05-29 10:02] LABS: Blood Urea Nitrogen 20 mg/dl (7-17); Creatinine Clearance Estimated 38 mL/min (50-200); Estimated Glomerular Filt Rate 72 ml/min (>60); GFR (African American) 87 ML/MIN (>60)
[2023-05-29 10:03] LABS: Anion Gap 6.5 mEq/L (5-15); Calcium 8.3 mg/dl (8.4-10.2); Carbon Dioxide 29 mmol/L (22.0-30.0); Glucose 112 mg/dl (74-100)
--- NOTE | 2023-05-30 14:18 | CARE MANAGER ---
Called and spoke with patient in regards to her recent discharge. Patient states that she is doing well, no questions or concerns at time of call. She has started new medication and is aware of scheduled f/u appt.
--- NOTE | 2023-06-22 18:52 | EXP.DC.SUM ---
General Admission date:: 05/26/23 Discharge date: 05/29/23 HPI HPI HPI: Patient is a 67-year-old female with past medical history of asthma and COPD, hyperlipidemia, hypertension, thalassemia, and morbid obesity who came to the hospital as a referral from [facility] for evaluation of shortness of breath, and chest tightness, patient stated that she has been having upper respiratory symptoms since few days ago. Reported being exposed to COVID-19. Patient was hypoxic on arrival, initial workup found to be positive RSV, negative for COVID. After couple rounds of Solu-Medrol and DuoNeb nebulization patient without showing any improvement. Transfer was requested to our facility due to lack of beds. Admitted for further treatment and management. Hospital Course Hospital Course Hospital Course: Patient was seen and evaluated at the bedside on the day of discharge. Patient is stable for discharge. Patient wishes to be discharged. All patient questions were answered and patient was given time to ask questions. Patient was discharged in stable condition. Patient understands that she can return to ER in case of any sudden changes in health. Total time spent on DC - 38 mins Patient is a 67-year-old female with past medical history of asthma COPD who presented to hospital with shortness of breath Assessment Acute bronchitis, RSV bronchitis - improved, DC on doxycyclin and prednisone Hypertension Hyperlipidemia Exam Data for Last 24 hours Vital signs and Labs for Last 24 Hours: Temp Pulse Resp BP Pulse Ox O2 Del Method O2 Flow Rate 98.1 F 75 18 130/72 97 Room Air 2 05/29/23 11:23 05/29/23 12:00 05/29/23 11:23 05/29/23 11:23 05/29/23 11:23 05/29/23 12:55 05/27/23 18:44 FiO2 21 05/28/23 17:55 Constitutional Constitutional: no acute distress *Routine HEENT Exam Head: Present normocephalic Eye: Present EOMI and PERRL ENT: Present mucous membranes moist *Routine Neck Exam Neck: Present supple; Absent lymphadenopathy *Routine Respiratory Exam Respiratory: Present CTA bilaterally *Routine Cardiovascular Exam Cardiovascular: Present RRR *Routine Abdominal Exam Abdominal: Present soft and normoactive bowel sounds; Absent tenderness *Routine Extremities Exam Extremities: Absent cyanosis, clubbing or edema *Routine Skin Exam Skin: Present warm; Absent rash *Routine Neurological Exam Neurological: Present alert and oriented X3 DS: Diagnosis Discharge Diagnosis (1) COPD exacerbation: Status: Inactive Code(s): J44.1 - Chronic obstructive pulmonary disease with (acute) exacerbation Meds Home Medications and Allergies Home Medications Medication Instructions Recorded Confirmed Type albuterol sulfate 90 mcg/actuation 2 puff inhalation Q4HP PRN 09/18/22 05/26/23 History aerosol inhaler Shortness Of Breath aspirin 81 mg chewable tablet 81 mg PO DAILY Heart health 09/18/22 05/26/23 History atorvastatin 80 mg tablet 80 mg PO HS Cholesterol 09/18/22 05/26/23 History budesonide 160 mcg-glycopyr 9 2 puff inhalation BID Breathing 09/18/22 05/26/23 History mcg-formot 4.8 mcg/actuation HFA Problems inhaler (Breztri Aerosphere) carvedilol 3.125 mg tablet 3.125 mg PO BID High blood pressure 09/18/22 05/26/23 History coenzyme Q10 200 mg capsule (Co 200 mg PO DAILY Supplement 05/26/23 05/26/23 History Q-10) empagliflozin 10 mg tablet 10 mg PO DAILY Heart Failure 05/26/23 05/26/23 History (Jardiance) furosemide 40 mg tablet 40 mg PO DAILY PRN swelling 05/26/23 05/26/23 History omeprazole 40 mg capsule,delayed 40 mg PO BID Acid Reflux 05/26/23 05/26/23 History release spironolactone 25 mg tablet 25 mg PO DAILY Fluid 05/26/23 05/26/23 History torsemide 20 mg tablet 20 mg PO DAILY Fluid 05/26/23 05/26/23 History dextromethorphan-guaifenesin 10 5 ml PO Q6HP PRN Cough 10 days 05/29/23 Rx mg-100 mg/5 mL oral syrup #100 mL doxycycline hyclate 100 mg capsule 100 mg PO B
== END 2023-05-29 15:16 | disposition home or self-care (01) ==
PROVIDERS: Internal Medicine; Nurse Practitioner Family; Admitting Provider Internal Medicine Adolescent Medicine; PCP Emergency Medicine; Visit Provider Internal Medicine Adolescent Medicine
DX: J44.1 Chronic obstructive pulmonary disease with (acute) exacerbation (principal); R07.89 Other chest pain; J20.5 Acute bronchitis due to respiratory syncytial virus; E78.5 Hyperlipidemia, unspecified; I10 Essential (primary) hypertension; D56.9 Thalassemia, unspecified; E66.01 Morbid (severe) obesity due to excess calories; Z68.41 Body mass index [BMI] 40.0-44.9, adult; Z85.3 Personal history of malignant neoplasm of breast; J44.0 Chronic obstructive pulmonary disease with (acute) lower respiratory infection
CPT/HCPCS: G0379; 36415; 71045; 71275; 74176; 80048; 80053; 80061; 83605; 83735; 84145; 84484; 85007; 85025; 85610; 87070; 87205; 94618; 94640; G0378; Q9967

== ENCOUNTER 2025-02-14 23:00 | Emergency (ER) | payer BC, MEDICARE, SELFPAY ==
--- OUTSIDE RECORDS SUMMARY | 2023-02-17 09:51 | XMS_ITS | Encounter Summary ---
Author Organization [facility] Address [address] [place] [address] Care Team Providers Care Wreath Maker Name Role Phone Artemio Jules MD Primary Care Provider [phone] Encounter Details Date Type Department Care Team (Late st Contact Info) Description 02/17/2023 9:51 AM EDT Hospital Encounter [facility] [address] [place] [phone] Social History Tobacco Use Types Packs/Day Years Used Date Smoking Tobacco: Never Passive Smoke Exposure: Never Smokeless Tobacco: Never Alcohol Use Standard Drinks/Week Comments Not Currently 0 (1 standard drink = 0.6 oz pur e alcohol) PHQ-2 Answer Date Recorded Patient Health Questionnaire-9 Score 8 02/04/2025 Comments No Sex and Gender Information Value Date Recorded Sex Assigned at Not on file Legal Sex Female 12:26 PM EDT Gender Identity Not on file Sexual Orientation Not on file documented as of this encounter Functional Status * Over the past 2 weeks, how often have you been bothered by any of the following problems? Question Answer Date of Assessment Author Patient Health Questionnaire-2 Score 1 02/04/2025 11:36 AM EDT Dolly Covington RegSched Rep * Little interest or pleasure in doing things Answer Date of Assessment Author Several days 02/04/2025 11:36 AM EDT Terrance Covington RegSched Rep * Feeling down, depressed, or hopeless Answer Date of Assessment Author Not at all 02/04/2025 11:36 AM EDT Terrance Covington RegSched Rep * Question Answer Date of Assessment Author Patient Health Questionnaire-9 Score 8 02/04/2025 11:36 AM EDT Dolly Covington RegSchedson Rep * Trouble falling or staying asleep, or sleeping too much Answer Date of Assessment Author More than half the days 02/04/2025 11:36 AM EDT Dolly Covington RegSched Rep * Feeling tired or having little energy Answer Date of Assessment Author Nearly every day 02/04/2025 11:36 AM EDT Dolly Covington RegSched Rep * Poor appetite or overeating Answer Date of Assessment Author Several days 02/04/2025 11:36 AM EDT Terrance Covington RegSched Rep * Feeling bad about yourself - or that you are a failure or have let yourself or your family down Answer Date of Assessment Author Several days 02/04/2025 11:36 AM EDT Terrance Covington RegSched Rep * Trouble concentrating on things, such as reading the newspaper or watching television Answer Date of Assessment Author Not at all 02/04/2025 11:36 AM EDT Terrance Covington RegSched Rep * Moving or speaking so slowly that other people could have noticed? Or the opposite - being so fidgety or restless that you have been moving around a lot more than usual. Answer Date of Assessment Author Not at all 02/04/2025 11:36 AM EDT Terrance Covington RegSched Rep * Thoughts that you would be better off or hurting yourself in some way Answer Date of Assessment Author Not at all 02/04/2025 11:36 AM EDT Terrance Covington RegSched Rep * How difficult have these problems made it for you to do your work, take care of things at home, or get along with other people? Answer Date of Assessment Author Not difficult at all 02/04/2025 11:36 AM EDT Dolly York ch, RegSchedson Rep documented as of this encounter Plan of Treatment Upcoming Encounters Date Type Department Care Team (Late st Contact Info) Description 05/21/2025 3:30 PM EST Office Visit [facility] [address] [place] [phone] Donna Olivera, EXPERIMENTAL BOX TESTER [address] [place] [address] documented as of this encounter Procedures Procedure Name Priority Date/Time Associated Diagnosis Comments XR CHEST PA AND LATERAL Routine 02/17/2023 9:52 AM EDT Chronic obstructive pulmonary disease, unspecified COPD type documented in this encounter Results * XR Chest PA & Lateral (02/17/2023 9:52 AM EDT) Anatomical Region Laterality Modality Body, Chest N/A Radiographic Bonnie ging Narrative 02/17/2023 9:57 AM EDT PA lateral chest x-rays obtained Cardiac silhouette is newly enlarged CT ratio is 14 x 27 No effusions, infiltrates, or consolidation Allan Diallo MD IMG DIAGNOSTIC IMAGING ORDERABLES Final Result documented in this encounter Visit Diagnoses Not on filedocumented in this encounter Care Teams Wreath Maker Relationship Specialty Start Date End Date Artemio Jules MD [address] [place] [id number] PCP - General Emergency Medicine 09/14/22 documented as of this encounter
--- OUTSIDE RECORDS SUMMARY | 2024-11-18 14:50 | XMS_ITS | Encounter Summary ---
Author Organization [facility] Address [address] [place] [address] Care Team Providers Care Engineering Mgr Name Role Phone Artemio Jules MD Primary Care Provider [phone] Encounter Details Date Type Department Care Team (Late st Contact Info) Description 11/18/2024 2:50 PM EDT Hospital Encounter [facility] PULMONARY [facility]ITICAL CARE MEDICINE [address] [place] [phone] Social History Tobacco Use Types Packs/Day Years [...] Description 05/21/2025 3:30 PM EST Office Visit [facility] PULMONARY & CRITICAL CARE MEDICINE [address] [place] [id number] Donna Olivera APRN [address] [place] [address] documented as of this encounter Procedures Procedure Name Priority Date/Time Associated Diagnosis Comments XR CHEST PA AND LATERAL Routine 11/18/2024 2:50 PM EDT Asthma documented in this encounter Results * XR Chest PA & Lateral (11/18/2024 2:50 PM EDT) Anatomical Region Laterality Modality Body, Chest N/A Radiographic Bonnie ging 11/18/2024 3:01 PM EDT Impressions 11/18/2024 3:35 PM EDT Impression: Mild cardiomegaly. Electronically Signed: Austin Briggs MD 11/18/2024 3:35 PM EDT Workstation ID: [id number] Narrative 11/18/2024 3:35 PM EDT XR CHEST PA AND LATERAL Date of Exam: 11/18/2024 2:50 PM EDT Indication: ASTHMA Comparison: 02/17/2023 Findings: Mild cardiomegaly. Mediastinal contour is within normal limits. Lungs are clear bilaterally. Regional skeleton is unremarkable. Procedure Note Austin Briggs MD - 11/18/2024 XR CHEST PA AND LATERAL Date of Exam: 11/18/2024 2:50 PM EDT Indication: ASTHMA Comparison: 02/17/2023 Findings: Mild cardiomegaly. Mediastinal contour is within normal limits. Lungs areclear bilaterally. Regional skeleton is unremarkable. IMPRESSION: Impression: Mild cardiomegaly. Electronically Signed: Austin Briggs MD 11/18/2024 3:35 PM EDT Workstation ID: [id number] Donna Olivera APRN IMG DIAGNOSTIC IMAGING ORDER XIAO Final Result documented in this encounter Visit Diagnoses Not on filedocumented in this encounter Care Teams Engineering Mgr Relationship Specialty Start Date End Date Artemio Jules MD [address] [place] [id number] PCP - General Emergency Medicine 09/14/22 documented as of this encounter
--- OUTSIDE RECORDS SUMMARY | 2024-12-30 09:00 | XMS_ITS | Encounter Summary ---
Author Organization Healthcare Address [address] [place] [address] Care Team Providers Care Supervisor [employer] Mill Name Role Phone Artemio Jules MD Primary Care Provider [phone] Encounter Details Date Type Department Care Team (Late st Contact Info) Description 12/30/2024 9:00 AM EDT Office Visit [place] [facility] [address] [place] [address] Toni Stone MD [address] [place] [address] Meningioma (CMS/HCC) (Primary Dx) Social History Tobacco Use Types Packs/Day Years Used Date Smoking Tobacco: Never Smokeless Tobacco: Never Alcohol Use Standard Drinks/Week Comments Not Currently 0 (1 standard drink = 0.6 oz pur e alcohol) Humiliation, Afraid, Rape, and Kick questionnair e Answer Date Recorded Within the last year, have y ou been afraid of your partner or ex-partner? No 03/21/2024 Within the last year, have y ou been humiliated or emotionally abused in other ways by your partner or ex-partner? No Within the last year, have y ou been kicked, hit, slapped, or otherwise physically hurt by your partner or ex-partner? No 03/21/2024 Within the last year, have y ou been raped or forced to have any kind of sexual activity by your partner or ex-partner? No 03/21/2024 PHQ-2 Answer Date Recorded Patient Health Questionnaire-2 Score 0 04/04/2024 Hunger Vital Sign Answer Date Recorded Within the past 12 months, y ou worried that your food would run out before you got the money to buy more. Never true 03/21/20 24 Within the past 12 months, t he food you bought just didn't last and you didn't have money to get more. Never true 03/21/2024 PRAPARE - Transportation Answer Date Re corded In the past 12 months, has l ack of transportation kept you from medical appointments or from getting medications? No 08/2023 In the past 12 months, has l ack of transportation kept you from meetings, work, or from getting things needed for daily living? No 03/21/2024 Housing Stability Vital Sign Answer Ismael e Recorded In the last 12 months, was t here a time when you were not able to pay the mortgage or rent on time? No 03/21/2024 Number of Places Lived in the Last Year Not on f ile 03/21/2024 In the last 12 months, was t here a time when you did not have a steady place to sleep or slept in a skilled nursing (including now)? No 03/21/2024 CAGE ASSESSMENT Answer Date Recorded Cage unable to access Not on file 03/21/2024 Cage max number of drinks Not on file 2023 Cage Beverages a week Not on file 03/21/2024 Have you ever felt you should CUT down on your d rinking? 0 03/21/2024 Have you been ANNOYED by people criticizing your drinking? 0 03/21/2024 Have you felt GUILTY about your drinking? 0 03/21/2024 Have you had a drink first t annabel in the morning (EYE-ADOBE ARCHITECT) to steady your nerves or to get rid of a hangover? 0 03/21/2024 CAGE Questionnaire Score 0 024 Utilities Answer Date Recorded In the past 12 months has th e [employer], gas, oil, or water company threatened to shut off services in your home? No 03/21/2024 Comments No Sex and Gender Information Value Date Recorded Sex Assigned at Female 02/08/2025 12:27 PM EDT Legal Sex Female 8:52 PM EDT Gender Identity Not on file Sexual Orientation Not on file documented as of this encounter Last Filed Vital Signs Vital Sign Reading Time Taken Comments Blood Pressure 132/78 12/30/2024 8:51 AM EDT Pulse - - Temperature - - Respiratory Rate - - Oxygen Saturation - - Inhaled Oxygen Concentration - - Weight 89.4 kg (197 lb) 12/30/2024 8:51 AM EDT Height 152.4 cm (5') 12/30/2024 8:51 AM EDT Body Mass Index 38.47 12/30/2024 8:51 AM EDT documented in this encounter Miscellaneous Notes * Progress Notes - Eduardo Roach - 12/30/2024 9:00 AM EDT We had the pleasure of seeing your patient in our clinic today for continued Neurosurgical evaluation. Chief Complaint Wound check History Of Present Illness Harriet Norton is a 69 y.o. lady who is s/p right retrosigmoid craniotomy for WHO grade I meningioma resection on 03/20/24, presenting to NSGY clinic with complaints of incisional mass as well as one day of nausea without emesis. Patient denies any Headache, fevers, chills, vomiting, numbness, visual changes, or seizures. Past Medical History She has a past medical history of Atrial fibrillation (CMS/HCC), Brain mass, Breast cancer, COPD (chronic obstructive pulmonary disease) (CMS/HCC) (03/22/2024), and JOSE ANGEL (obstructive sleep apnea). Surgical History She has a past surgical history that includes Tonsillectomy; section, classic; and Breast lumpectomy. Family History Family History Problem Relation Name Age of Onset Anesthesia problems Neg Hx Malig Hyperthermia Neg Hx Social History She reports that she has never smoked. She has never used smokeless tobacco. She reports that she does not currently use alcohol. She reports that she does not use drugs. Medications Current Outpatient Medications Medication Sig Dispense Refill albuterol (Proventil) (2.5 MG/3ML) 0.083% nebulizer solution Take 3 mL (2.5 mg) by nebulization every 4 (four) hours if needed for shortness of breath. albuterol 108 (90 Base) MCG/ACT inhaler Inhale 2 puffs every 4 (four) hours if needed. atorvastatin (Lipitor) 80 MG tablet Take 1 tablet (80 mg) by mouth 1 (one) time each day. Breztri Aerosphere 160-9-4.8 MCG/ACT aerosol Inhale 2 puffs twice a day. jtnefzzfxl-ayszaxwjbttzs-aybvzien 50-325-40 MG tablet Take 2 tablets by mouth every 4 (four) hours if needed for headaches. 60 tablet 0 carvedilol (Coreg) 3.125 MG tablet Take 1 tablet (3.125 mg) by mouth 2 (two) times a day. cholecalciferol (Vitamin D-3) 25 MCG (1000 UT) tablet Take 1 tablet (1,000 Units) by mouth 1 (one) time each day. coenzyme Q-10 100 MG capsule Take 1 capsule (100 mg) by mouth 1 (one) time each day. Jardiance 25 MG Take 1 tablet (25 mg) by mouth 1 (one) time each day. naloxone (Narcan) 4 mg/0.1 mL nasal spray 1. Give 1 spray in nostril for no/slow breathing or cannot wake after opioid use 2. Call 911 3. Repeat in other nostril if symptoms continue 1 each 0 niacin 100 MG tablet Take 1 tablet (100 mg) by mouth 1 (one) time each day with breakfast. omeprazole (PriLOSEC) [address] capsule Take 1 capsule (40 mg) by mouth 2 (two) times a day. ondansetron ODT (Zofran-ODT) 4 MG disintegrating tablet Take 1 tablet (4 mg) by mouth every 6 (six)hours if needed for nausea or vomiting. 20 tablet 0 Potassium 99 MG tablet Take 1 tablet by mouth 1 (one) time each day. spironolactone (Aldactone) 25 MG tablet Take 1 tablet (25 mg) by mouth 1 (one) time each day. torsemide (Demadex) 20 MG tablet Take 1 tablet (20 mg) by mouth 1 (one) time each day. triamcinolone (Kenalog) 0.1 % cream Apply 1 Application topically 2 (two) times a day if needed forrash. zinc gluconate 50 MG tablet Take 1 tablet (50 mg) by mouth 1 (one) time each day. cyclobenzaprine (Flexeril) 10 MG tablet Take 1 tablet (10 mg) by mouth 3 (three) times a day. 30 tablet 0 dexamethasone (Decadron) 4 MG tablet Take 1 tablet (4 mg) by mouth 4 (four) times a day for 3 days,THEN 1 tablet (4 mg) 3 (three) times a day for 3 days, THEN 1 tablet (4 mg) 2 (two) times a day for3 days, THEN 0.5 tablets (2 mg) 2 (two) times a day for 4 days. 31 tablet 0 gabapentin (Neurontin) 400 MG capsule Take 1 capsule (400 mg) by mouth 4 (four) times a day. 60 capsule 0 lidocaine (Lidoderm) 5 % patch Apply 1 patch topically 1 (one) time each day at the same time over 12 hours. Remove & discard patch within 12 hours or as directed by MD. 4 patch 0 meclizine (Antivert) 25 MG tablet Take 1 tablet (25 mg) by mouth 3 (three) times a day if needed for dizziness. 30 tablet 0 polyethylene glycol (Miralax) 17 g packet Take 17 g by mouth 2 (two) times a day. 30 packet 0 senna-docusate (Arielle-Colace) 8.6-50 MG tablet Take 2 tablets by mouth 2 (two) times a day. 60 tablet 0 No current facility-administered medications for this visit. Allergies Codeine, Bactrim [sulfamethoxazole-trimethoprim], Cephalexin, Hydrocodone, Lidocaine, and Procaine Review of Systems 14 point review of systems was performed and was negative except as noted per HPI. Physical Exam Neuro Exam GCS (EMV): 465 Awake, alert, oriented Follows commands appropriately Speech clear PERRL, EOMI CN 2-12 grossly intact No drift Strength 5/5 throughout Sensation intact throughout Gpsaye-zpdg-idhsvg intact without dysmetria or ataxia Incision well healed, with small scabbing over inferior portion. No leak or drainage. Last Recorded Vitals Visit Vitals Ht 1.524 m (5') Wt 89.4 kg (197 lb) BMI 38.47 kg/m?? OB Status Postmenopausal Smoking Status Never BSA 1.95 m?? Labs No lab exists for component: ALB Imaging No new imaging for review. Assessment and Plan Harriet Norton is a 68 y.o. lady who is s/p right retrosigmoid craniotomy for WHO grade I meningioma resection on 03/20/24, presenting to NSGY clinic for wound evaluation. Patient has small scab over her incision that fell off, instructed patient to continue with follow up as scheduled and to check in with her primary care physician about her nausea. She has no new neurologic complaints. We will continue with follow up in 1 year with another MRI head w/wo contrast as planned at last visit. Eduardo Roach MD Resident Physician, PGY-2 Department of neurosurgery Pager: [phone] Cosigned by Toni Stone MD at 12/30/2024 10:08 AM EDT Associated attestation - Toni Stone MD - 12/30/2024 10:08 AM EDT I saw and evaluated the patient with the resident/fellow. I discussed the case with the resident/fellow and agree with the findings and plan as documented. documented in this encounter Plan of Treatment Upcoming Encounters Date Type Department Care Team (Late st Contact Info) Description 09/19/2025 3:30 PM EDT Ovarian Cancer Screening [facility] Gynecology [address] [place] [address] documented as of this encounter Visit Diagnoses Diagnosis Meningioma (CMS/HCC)- Primary Benign neoplasm of cerebral meninges documented in this encounter Additional Health Concerns Assessment Noted Time A fall risk assessment has been complete d for the patient 12/30/2024 8:54 AM EDT A Body Mass Index follow-up plan has been documented for the patient 12/31/2024 1:04 PM EDT documented as of this encounter Care Teams Supervisor [employer] Mill Relationship Specialty Start Date End Date Artemio Jules MD [address] [place] [id number] PCP - General 09/19/22 documented as of this encounter
--- OUTSIDE RECORDS SUMMARY | 2025-01-02 08:30 | XMS_ITS | Encounter Summary ---
Author Organization Healthcare Address [address] [place] [address] Care Team Providers Care Elementary Supervisor Name Role Phone Artemio Jules MD Primary Care Provider [phone] Encounter Details Date Type Department Care Team (Late st Contact Info) Description 01/02/2025 8:30 AM EDT Office Visit [place] [facility] [address], [address] [place] [address] Toni Stone MD [address] [place] [address] Meningioma (CMS/HCC) (Primary Dx) Social [...] place to sleep or slept in a penitentiary (including now)? No 03/21/2024 CAGE ASSESSMENT Answer [...] drink first t annabel in the morning (EYE-SEISMIC PROSPECTING OBSERVER HELPER) to steady your nerves or to get rid of a hangover? 0 03/21/2024 CAGE Questionnaire Score 0 024 Utilities Answer Date Recorded In the past 12 months has th e [employer], gas, oil, or water company threatened to [...] Sign Reading Time Taken Comments Blood Pressure 122/84 01/02/2025 8:30 AM EDT Pulse - - Temperature - - Respiratory Rate - - Oxygen Saturation - - Inhaled Oxygen Concentration - - Weight 89.4 kg (197 lb) 01/02/2025 8:30 AM EDT Height 152.4 cm (5') 01/02/2025 8:30 AM EDT Body Mass Index 38.47 01/02/2025 8:30 AM EDT documented in this encounter Miscellaneous Notes * Progress Notes - Sachin Sousa MD - 01/02/2025 8:30 AM EDT We had the pleasure of seeing your patient in our clinic today for continued Neurosurgical evaluation. Chief Complaint Wound check History Of Present Illness Harriet Norton is a 69 y.o. lady who is s/p right retrosigmoid craniotomy for WHO grade I meningioma resection on 03/20/24, presenting to NSGY clinic with complaints of a lesion along her surgical incision as well as worsening dizziness. Patient denies any Headache, fevers, chills, vomiting, [...] aerosol Inhale 2 puffs twice a day. vyjsliwttf-ovlobqucaibvi-oioyppwu 50-325-40 MG tablet Take 2 tablets by [...] drift Strength 5/5 throughout Sensation intact throughout Hrcmxd-cjcc-lrrvry intact without dysmetria or ataxia Incision well healed, with small pimple over inferior portion. No redness, leak or drainage. Last Recorded Vitals Visit Vitals BP 122/84 Ht 1.524 m (5') Wt 89.4 kg (197 lb) BMI 38.47 kg/m?? OB Status Postmenopausal Smoking Status Never BSA 1.95 m?? Labs Imaging No new imaging for review. Assessment and Plan Harriet Norton is a 68 y.o. lady who is s/p right retrosigmoid craniotomy for WHO grade I meningioma resection on 03/20/24, presenting to NSGY clinic for wound evaluation. Patient has small pimple over her incision for which she has been previously evaluated in this clinic. At further inspection, the lesion seems to be related a follicular inflammation, which is in line with the symptoms the patient describes. She also complains of dizziness coming back; however, her last MRI shows GTR and improvement in brainstem compression. In this setting, we will refer the patient to be evaluated by our physical therapy team, to work on her dizziness/vertigo. From a neurosurgical standpoint, we will follow up as previously scheduled. Sachin Leonard MD Resident Physician, PGY-2 Department of Neurosurgery [facility] Cosigned by Toni Stone MD at 01/02/2025 12:35 PM EDT Associated attestation - Toni Stone MD - 01/02/2025 12:35 PM EDT I saw and evaluated the patient with the resident/fellow. I discussed the case with the resident/fellow and agree with the findings and plan as documented. documented in this encounter Plan of Treatment Upcoming Encounters Date Type Department Care Team (Late st Contact Info) Description 09/19/2025 3:30 PM EDT Ovarian Cancer Screening [facility] Gynecology [address]rd [place] [address] documented as of this encounter Visit Diagnoses Diagnosis Meningioma (CMS/HCC)- Primary Benign neoplasm of cerebral meninges documented in this encounter Additional Health Concerns Assessment Noted Time A fall risk assessment has been complete d for the patient 01/02/2025 8:37 AM EDT A Body Mass Index follow-up plan has been documented for the patient 01/02/2025 12:35 PM EDT documented as of this encounter Care Teams Elementary Supervisor Relationship Specialty Start Date End Date Artemio Jules MD [address] [place] [id number] PCP - General 09/19/22 documented as of this encounter
--- OUTSIDE RECORDS SUMMARY | 2025-01-15 14:45 | XMS_ITS | Encounter Summary ---
[facility] Organization [facility] Address [address] [place] [address] Care Team Providers Care Nailhead Operator Name Role Phone Artemio Jules MD Primary Care Provider [phone] Reason for Referral * Diagnostic Imaging (Routine) - Closed Specialty Diagnoses / Procedures Referred By Contac t Referred To Contact Diagnoses Bilateral leg edema Procedures Adult Transthoracic Echo Complete W/ Cont if Necessary Per Protocol MA ECHO TTHRC R-T 2D W/WOM-MODE COMPL SPEC&COLR D MA ECHO TRANSTHORC R-T 2D W/WO M-MODE REC F-UP/LMTD Valentine Moran APRN [address] [place] [address] Phone: tel: fax: [facility] [address] [address] Phone: tel: fax: Referral ID Status Reason Start Date Expiration Date Visits Re quested Visits Authorized [id number] Closed 01/15/2025 04/16/2026 1 1 Reason for Visit * Reason Comments Sleep Apnea From her JOSE ANGEL standpo int reports she is doing well with use. Download obtained and reviewed with pt today. Will refax last order or [facility]. Palpitations Pt here for follow u p on her palpitations. Wishes to review results of recent monitor. Continues to have episodes of palpitations. Also admits to right arm pain for a while now. Denies chest pain or SOA. Admits to occasional dizziness, reports no recent falls. Encounter Details Date Type Department Care Team (Late st Contact Info) Description 01/15/2025 2:45 PM EDT Office Visit [facility] [address] [id number] Valentine Moran APRN [address] [place] [address] Bilateral leg edema (Primary Dx); JOSE ANGEL on CPAP; Chronic fatigue; Chronic obstructive pulmonary disease, unspecified COPD type Social History Tobacco Use Types Packs/Day Years Used Date Smoking Tobacco: Never Passive Smoke Exposure: Never Smokeless Tobacco: Never Alcohol Use Standard Drinks/Week Comments Not Currently 0 (1 standard drink = 0.6 oz pur e alcohol) Comments No Sex and Gender Information Value Date Recorded Sex Assigned at Not on file Legal Sex Female 12:26 PM EDT Gender Identity Not on file Sexual Orientation Not on file documented as of this encounter Last Filed Vital Signs Vital Sign Reading Time Taken Comments Blood Pressure 118/70 01/15/2025 2:56 PM EDT Pulse 68 01/15/2025 2:56 PM EDT Temperature - - Respiratory Rate 17 01/15/2025 2:56 PM EDT Oxygen Saturation 98% 01/15/2025 2:56 PM EDT Inhaled Oxygen Concentration - - Weight 91.6 kg (202 lb) 01/15/2025 2:56 PM EDT Height 152.4 cm (5') 01/15/2025 2:56 PM EDT Body Mass Index 39.45 01/15/2025 2:56 PM EDT documented in this encounter Progress Notes * Valentine Moran APRN - 01/15/2025 2:45 PM EDT Images from the original note were not included. Date: 01/15/2025 Name: Harriet Norton : 1955 PCP: Artemio Jules MD REF: No ref. provider found Sleep and/or Cardiology Consulting Provider Note History of Present Illness The patient is a 69-year-old female who presents for a 4-week follow-up regarding possible irregular heart rates detected by her watch and obstructive sleep apnea. Sleep Apnea (From her JOSE ANGEL standpoint reports she is doing well with use. Download obtained and reviewed with pt today. Will refax last order or [facility].) and Palpitations (Pt here for follow up on her palpitations. Wishes to review results of recent monitor. Continues to have episodes of palpitations. Also admits to right arm pain for a while now. Denies chest pain or SOA. Admits to occasional dizziness, reports no recent falls.) She reports fluctuating health, with periods of feeling well interspersed with episodes of headaches following her surgery. She also experiences low energy levels and is seeking a solution to boost her vitality. Her sleep apnea is currently under control. However, she struggles with maintaining sleep, often waking up during the night and finding it difficult to return to sleep. She describes herself as a light sleeper, easily disturbed by noise, and expresses concern about the potential side effects of sleep medications. She has been taking magnesium for a week, which aids in falling asleep but does not alleviate her morning fatigue. She is experiencing anxiety. She is not currently undergoing physical therapy but plans to start today. She has not had recent lab work done to check for potential causes of her fatigue such as B12, vitamin D, or thyroid levels.She is due for a physical examination soon. She is requesting assistance in obtaining Breztri for her COPD, as her insurance company wants to switch her to Vontu. She is comfortable with Breztri and finds it effective. She has noticed swelling in her legs, which was so severe on 01/13/2025 that she could not put her shoes back on. She continues to take torsemide as needed and spironolactone 25 mg. SOCIAL HISTORY Occupations: Works at a school [employer] Scale is (out of 24): Total score: 11 Cardiology and Sleep Related History: Cardiac history 1. Hyperlipidemia 2. JOSE ANGEL with baseline AHI of 10 on 03/05/2021, REM 46. Last titration was 9 cm on 09/11/2021. Current treatment, BiPAP settings: 14/8 cm. 3. Diabetes 4. Lower extremity edema 5. COPD followed with pulmonary *Left heart cath on 09/19/2022- normal coronary arteries. Normal ejection fraction. Normal left ventricular end-diastolic pressure. *Echocardiogram 09/19/22- ?? Left Ventricle: The left ventricle is normal size. There is normal left ventricular myocardial thickness and mass. The left ventricular systolic function is normal. The LVEF is visually estimated at 60 - 65%. The left ventricular filling pressure is normal. ?? Right Ventricle: The right ventricle is normal in size. The right ventricular systolic function is normal. ?? Pericardium: No pericardial effusion. There are no discontinued medications. Allergies Allergen Reactions Codeine Hives Cephalexin Unknown - High Severity Lidocaine Rash Procaine Rash Sulfamethoxazole-Trimethoprim Rash Current Outpatient Medications: albuterol (PROVENTIL) (2.5 MG/3ML) 0.083% nebulizer solution, Take 2.5 mg by nebulization Every 4 (Four) Hours As Needed for Shortness of Air., Disp: 120 each, Rfl: 11 albuterol sulfate HFA 108 (90 Base) MCG/ACT inhaler, Inhale 2 puffs Every 4 (Four) Hours As Needed for Wheezing., Disp: 18 g, Rfl: 11 atorvastatin (LIPITOR) 80 MG tablet, Take 1 tablet by mouth once daily, Disp: 90 tablet, Rfl: 1 Onuveej-Usttmbfhats-Yvtjadbjaq (Breztri Aerosphere) 160-9-4.8 MCG/ACT aerosol inhaler, Inhale 2 puffs As Needed., Disp: , Rfl: pimlrqpddw-djujthhthylxe-yxaomoth (FIORICET, ESGIC) 50-325-40 MG per tablet, Take 2 tablets by mouth., Disp: , Rfl: carvedilol (COREG) 3.125 MG tablet, Take 1 tablet by mouth Every 12 (Twelve) Hours., Disp: 180 tablet, Rfl: 1 Cholecalciferol 25 MCG (1000 UT) tablet, Take 1 tablet by mouth Daily., Disp: , Rfl: coenzyme Q10 100 MG capsule, Take 1 capsule by mouth Daily., Disp: , Rfl: cyclobenzaprine (FLEXERIL) 10 MG tablet, Take 1 tablet by mouth 3 (Three) Times a Day., Disp: , Rfl: Jardiance 25 MG tablet tablet, Take 1 tablet by mouth once daily, Disp: 30 tablet, Rfl: 0 meclizine (ANTIVERT) 25 MG tablet, Take 1 tablet by mouth., Disp: , Rfl: montelukast (SINGULAIR) 10 MG tablet, Take 1 tablet by mouth Daily., Disp: , Rfl: omeprazole (priLOSEC) 40 MG capsule, Take 1 capsule by mouth Daily., Disp: , Rfl: ondansetron ODT (ZOFRAN-ODT) 4 MG disintegrating tablet, Take 1 tablet by mouth Every 6 (Six) HoursAs Needed., Disp: , Rfl: POTASSIUM PO, Take 1 tablet by mouth Daily., Disp: , Rfl: spironolactone (ALDACTONE) 25 MG tablet, Take 1 tablet by mouth Daily., Disp: 90 tablet, Rfl: 1 torsemide (DEMADEX) 20 MG tablet, Take 1 tablet by mouth Daily. (Patient taking differently: Take 1tablet by mouth Daily. prn), Disp: 30 tablet, Rfl: 11 triamcinolone (KENALOG) 0.1 % cream, Apply 1 Application topically to the appropriate area as directed., Disp: , Rfl: zinc gluconate 50 MG tablet, Take 1 tablet by mouth Daily., Disp: , Rfl: Wgdhvagxknx-Utafixriv-Hqzxff (Trelegy Ellipta) 100-62.5-25 MCG/ACT inhaler, Inhale 1 puff Daily. 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 Breast cancer right breast 2009 Breast cancer LUMPECTOMY AND RADIATION COPD (chronic obstructive pulmonary disease) Drug therapy GERD (gastroesophageal reflux disease) 09/2011 High cholesterol Hx of radiation therapy Localized swelling, mass and lump, lower limb, bilateral Nontoxic single thyroid nodule Obstructive sleep apnea (adult) (pediatric) Other emphysema Other hypersomnia Pain in right arm Precordial pain Pure hypercholesterolemia, unspecified SOB (shortness of breath) Solitary pulmonary nodule Patient Active Problem List Diagnosis Morbid obesity with BMI of 40.0-44.9, adult Pulmonary nodule (RLL Stable x 2 years) Precordial chest pain Hyperlipidemia LDL goal <100 Hospital discharge follow-up Asthma Non-smoker JOSE ANGEL on CPAP Environmental and seasonal allergies Chronic fatigue Anxiety COPD (chronic obstructive pulmonary disease) Family History Problem Relation Age of Onset Stroke Mother Cancer Father Breast cancer Maternal Aunt UNKNOWN Sleep apnea Grandson Ovarian cancer Neg Hx family history includes Breast cancer in her maternal aunt; Cancer in her father; Sleep apnea in her grandson; Stroke in her mother. Social History Socioeconomic History Marital status: Single Number of children: 5 Tobacco Use Smoking status: Never Passive exposure: Never Smokeless tobacco: Never Vaping Use Vaping status: Never Used Substance and Sexual Activity Alcohol use: Not Currently Drug use: Not Currently Sexual activity: Defer Vital Signs: BP 118/70 (BP Location: Right arm, Patient Position: Sitting, Cuff Size: Adult) Pulse 68 Resp 17 Ht 152.4 cm (60 ) Wt 91.6 kg (202 lb) SpO2 98% BMI 39.45 kg/m?? Estimated body mass index is 39.45 kg/m?? as calculated from the following: Height as of this encounter: 152.4 cm (60 ). Weight as of this encounter: 91.6 kg (202 lb). Physical Exam Physical Exam General: Patient appears exhausted and reports difficulty sleeping. Neck: Patient reports feeling pressure and swelling in the neck. Extremities: Bilateral lower extremities are swollen and painful; 2+ no redness or shiny Psychiatric: Patient reports experiencing anxiety. Results Diagnostic Testing - Holter monitor: Normal Assessment and Plan Diagnoses and all orders for this visit: 1. Bilateral leg edema (Primary) - Adult Transthoracic Echo Complete W/ Cont if Necessary Per Protocol; Future 2. JOSE ANGEL on CPAP 3. Chronic fatigue 4. Chronic obstructive pulmonary disease, unspecified COPD type Assessment & Plan 1. Irregular heart rate: - Holter monitor results were normal. - Continue monitoring blood pressure once daily for three days a week. 2. Obstructive sleep apnea: - Continue using CPAP machine. - Continue using magnesium, which has been helping her sleep. - Trazodone discussed as an option for sleep; she expressed concerns about its use. If she decides to try trazodone, she will inform the office. 3. Fatigue: - Likely due to inadequate sleep quality. - Physical therapy recommended to help improve sleep quality and reduce tension. - Advised to get labs done sooner rather than later to rule out other causes of fatigue (B12, vitamin D, thyroid). - Updated echocardiogram will be scheduled. 4. Anxiety: - Reported experiencing anxiety. - Potential benefits of physical therapy in reducing anxiety were discussed. 5. Chronic obstructive pulmonary disease (COPD): - Requested assistance in getting Breztri instead of Trelegy due to insurance changes. - Appeal will be sent to try to keep her on Breztri. 6. Edema: - Reported swelling in her legs and pain. - Increase spironolactone dosage to 50 mg until next visit. - Updated echocardiogram will be scheduled. Follow-up: Echo scheduled with a follow-up. Physical therapy and labs to be coordinated with primary care. If she changes her mind about trazodone, she will inform the office. Recommendations: ER if symptoms increase, Report if any new/changing symptoms immediately, Limit salt, Elevate legs, Compression hose, Sleep risks reviewed (driving, medical, sleep , sedating agents), Sleep hygiene discussed, and JOSE ANGEL precautions for anesthesia Follow Up Return for After echo. Patient or patient entry level sales representative verbalized consent for the use of Ambient Listening during the visit with Valentine Moran APRN for chart documentation. 01/21/2025 08:27 EDT Valentine Moran APRN 01/15/2025 Please note that this explicitly excludes time spent on other separate billable services such as performing procedures or test interpretation, when applicable. This note was created using dictation software which occasionally transcribes nonsensical phrases. Please contact the provider if any clarification is needed. documented in this encounter Plan of Treatment Upcoming Encounters Date Type Department Care Team (Late st Contact Info) Description 05/21/2025 3:30 PM EST Office Visit [facility] [address] [place] [id number] Donna Olivera APRN [address] [place] [address] documented as of this encounter Results * ECHO COMPLETE W/ DOPPLER AND COLOR FLOW (02/11/2025 10:08 AM EDT) EF(MOD-bp) 64.8 % LVIDd 5.1 cm LVIDs 3.4 cm IVSd 0.95 cm LVPWd 0.75 cm FS 32.7 % IVS/LVPW 1.28 cm ESV(cubed) 39.3 ml LV Sys Vol (BSA corrected) 14.2 cm2 EDV(cubed) 128.8 ml LV Chamberlain Vol (BSA corrected) 36.5 cm2 LV mass(C)d 149.4 grams EDV(MOD-sp2) 70.3 ml EDV(MOD-sp4) 68.5 ml ESV(MOD-sp2) 22.8 ml ESV(MOD-sp4) 26.6 ml SV(MOD-sp2) 47.5 ml SV(MOD-sp4) 41.9 ml SVi(MOD-SP2) 25.3 ml/m2 SVi(MOD-SP4) 22.4 ml/m2 EF(MOD-sp2) 67.6 % EF(MOD-sp4) 61.2 % MV E max manpreet 85.6 cm/sec MV A max manpreet 97.3 cm/sec MV dec time 0.25 sec MV E/A 0.88 IVRT 92.0 ms LA ESV Index (BP) 20.4 ml/m2 Med Peak E' Manpreet 6.0 cm/sec Lat Peak E' Manpreet 10.2 cm/sec TR max manpreet 285.7 cm/sec Avg E/e' ratio 10.57 RVIDd 2.48 cm RV Base 3.0 cm RV Mid 2.29 cm RV Length 5.1 cm TAPSE (>1.6) 2.29 cm RV S' 14.3 cm/sec LA dimension (2D) 3.1 cm LV V1 max 120.0 cm/sec LV V1 max PG 5.8 mmHg LV V1 mean PG 3.0 mmHg LV V1 VTI 29.1 cm Ao pk manpreet 168.0 cm/sec Ao max PG 11.3 mmHg Ao mean PG 7.0 mmHg Ao V2 VTI 41.3 cm Dimensionless Index 0.70 (DI) MV max PG 4.3 mmHg MV mean PG 2.00 mmHg MV V2 VTI 32.7 cm MV P1/2t 87.5 msec MVA(P1/2t) 2.5 cm2 MV dec slope 358.0 cm/sec2 TR max PG 32.8 mmHg RVSP(TR) 42 mmHg RAP systole 3.0 mmHg PA V2 max 99.5 cm/sec Ao root diam 2.10 cm Sinus 2.40 cm Anatomical Region Laterality Modality Ultrasound Narrative 02/11/2025 3:41 PM EDT Left ventricular systolic function is normal. Calculated left ventricular EF = 64.8% Left ventricular ejection fraction appears to be 61 - 65%. Left ventricular diastolic function is consistent with (grade I) impaired relaxation. Estimated right ventricular systolic pressure from tricuspid regurgitation is mildly elevated (35-45 mmHg). Left Ventricle Left ventricular systolic function is normal. Calculated left ventricular EF = 64.8% Left ventricular ejection fraction appears to be 61 - 65%. Septal wall motion is normal. Normal left ventricular cavity size and wall thickness noted. All left ventricular wall segments contract normally. Left ventricular diastolic function is consistent with (grade I) impaired relaxation. Right Ventricle Normal right ventricular cavity size, wall thickness, systolic function and septal motion noted. Left Atrium Normal left atrial size and volume noted. Right Atrium Normal right atrial cavity size noted. Mitral Valve The mitral valve is structurally normal with no significant stenosis present. Trace to mild mitral valve regurgitation is present. Tricuspid Valve The tricuspid valve is structurally normal with no stenosis present. Mild tricuspid valve regurgitation is present. Estimated right ventricular systolic pressure from tricuspid regurgitation is mildly elevated (35-45 mmHg). Aortic Valve No aortic valve regurgitation or stenosis is present. The aortic valve is abnormal in structure. The aortic valve exhibits sclerosis. Pulmonic Valve The pulmonic valve is structurally normal. There is trace pulmonic valve regurgitation present. Pericardium The pericardium is normal. There is no evidence of pericardial effusion. . Greater Vessels No dilation of the aortic root is present. No dilation of the sinuses of Valsalva is present. No dilation of the ascending aorta is present. No dilation of the aortic arch is present. The inferior vena cava is normally sized. Study Quality The study is technically adequate for diagnosis. The quality of the study is limited due to patient body habitus. Normal sinus was the predominant rhythm observed during the procedure. Wall Scoring Score Index: 1.00 The left ventricular wall motion is normal. Valentine Moran APRN CV ECHO ORDERABLES Final Result documented in this encounter Visit Diagnoses Diagnosis Bilateral leg edema- Primary Edema JOSE ANGEL on CPAP Chronic fatigue Other malaise and fatigue Chronic obstructive pulmonary disease, unspecified COPD type Bilateral leg edema Edema documented in this encounter Care Teams Nailhead Operator Relationship Specialty Start Date End Date Artemio Jules MD [address] [place] [address] PCP - General Emergency Medicine 09/14/22 documented as of this encounter
--- OUTSIDE RECORDS SUMMARY | 2025-02-08 11:31 | XMS_ITS | Encounter Summary ---
Author Organization [facility] Address [address] [place] [address] Care Team Providers Care School Clerk Name Role Phone Artemio Jules MD Primary Care Provider [phone] Reason for Visit * Reason Comments Insect Bite R lower calf, happen ed on Monday, worse on Monday, gradually gotten worse Encounter Details Date Type Department Care Team (Late st Contact Info) Description 02/08/2025 11:31 AM EDT - 02/08/2025 11:50 AM EDT Hospital Encounter [facility] [address] [place] [address] Hernán Shay PA-C [address] [place] [address] Swelling of right lower extremity (Primary Dx) Discharge Disposition: ED Dismiss - Diverted Elsewhere Social History Tobacco Use Types Packs/Day Years [...] Sign Reading Time Taken Comments Blood Pressure 135/65 02/08/2025 11:37 AM EDT Pulse 76 02/08/2025 11:37 AM EDT Temperature 36.4 C (97.5 F) 02/08/2025 11:37 AM EDT Respiratory Rate 16 02/08/2025 11:37 AM EDT Oxygen Saturation 95% 02/08/2025 11:37 AM EDT Inhaled Oxygen Concentration - - Weight 91.6 kg (202 lb) 02/08/2025 11:37 AM EDT pt supplied Height 152.4 cm (5') 02/08/2025 11:37 AM EDT Body Mass Index 39.45 02/08/2025 11:37 AM EDT documented in this encounter Discharge Instructions * Discharge Instructions* Hernán Shay PA-C - 02/08/2025 11:49 AM EDT Go to the Er for further workup on symptoms. documented in this encounter Medications at Time of Discharge albuterol (PROVENTIL) (2.5 MG/3ML) 0.083% nebulizer solution Take 2.5 mg by nebulization Every 4 (Four) Hours As Needed for Shortness of Air. 120 each 11 5 albuterol sulfate HFA 108 (90 Base) MCG/ACT inhalerIndications: Mild intermittent asthma, unspecified whether complicated Inhale 2 puffs Every 4 (Four) Hours As Needed for Wheezing. 18 g 11 5 atorvastatin (LIPITOR) 80 MG tablet Take 1 tablet by mouth once daily 90 tablet 1 5 Budeson-Glycopyrrol -Formoterol (Breztri Aerosphere) 160-9-4.8 MCG/ACT aerosol inhaler Inhale 2 puffs As Needed. butalbital-acetamin ophen-caffeine (FIORICET, ESGIC) 50-325-40 MG per tablet Take 2 tablets by mouth. 4 carvedilol (COREG) 3.125 MG tablet Take 1 tablet by mouth Every 12 (Twelve) Hours. 180 tablet 1 5 Cholecalciferol 25 MCG (1000 UT) tablet Take 1 tablet by mouth Daily. coenzyme Q10 100 MG capsule Take 1 capsule by mouth Daily. cyclobenzaprine (FLEXERIL) 10 MG tablet Take 1 tablet by mouth 3 (Three) Times a Day. 4 Fluticasone-Umeclid in-Vilant (Trelegy Ellipta) 100-62.5-25 MCG/ACT inhaler Inhale 1 puff Daily. 60 each 5 5 Jardiance 25 MG tablet tabletIndications:T ype 2 diabetes mellitus without complication, without long-term current use of insulin Take 1 tablet by mouth once daily 30 tablet 5 meclizine (ANTIVERT) 25 MG tablet Take 1 tablet by mouth. 4 montelukast (SINGULAIR) 10 MG tablet Take 1 tablet by mouth Daily. omeprazole (priLOSEC) 40 MG capsule Take 1 capsule by mouth Daily. 3 ondansetron ODT (ZOFRAN-ODT) 4 MG disintegrating tablet Take 1 tablet by mouth Every 6 (Six) Hours As Needed. 4 POTASSIUM PO Take 1 tablet by mouth Daily. spironolactone (ALDACTONE) 25 MG tablet Take 1 tablet by mouth Daily. 90 tablet 1 3 torsemide (DEMADEX) 20 MG tabletIndications:S welling of both lower extremities Take 1 tablet by mouth Daily. 30 tablet 11 3 triamcinolone (KENALOG) 0.1 % cream Apply 1 Application topically to the appropriate area as directed. zinc gluconate 50 MG tablet Take 1 tablet by mouth Daily. documented as of this encounter ED Notes * Hernán Shay PA-C - 02/08/2025 11:50 AM EDT 69 y/o female presents with right lower leg swelling and pain. Started Monday. The area on her right lower calf looked like a bug bite initially. Now the entire calf is swollen and so painful she canbarely walk. Pt is also having fever, with a fever of 101 degrees yesterday. Pt denies hx of blood clots. Denies recent surgery. No recent long travel on an airplane. On exam pt has a discoloration noted to her right lower calf. Significant tenderness to palpation of the right calf. Increase in diameter of the right calf by 1 cm compared to the left. Discussed differential diagnosis with pt including cellulitis, sepsis and DVT. Pt advised we could try a trial of doxycycline and see if symptoms improve. I did inform pt I can not rule out a DVT, due to lack of US capabilities. Also, if pt truly has been running a fever at home, blood work could be necessary to r.o a secondary sepsis, which I can not do in an urgent care setting. Pt given options and she decided to go to the Emergency department for further workup, to determine exact etiology of symptoms. Pt stable when leaving office. [facility] ED called and gave report to Alesia the charge nurse. Hernán Shay PA-C 02/08/25 1154 Hernán Shay PA-C 02/08/25 1208 documented in this encounter Plan of Treatment Upcoming Encounters Date Type Department Care Team (Late st Contact Info) Description 05/21/2025 3:30 PM EST Office Visit [facility] [address] [place] [id number] Donna Olivera APRN [address] [place] [address] documented as of this encounter Visit Diagnoses Diagnosis Swelling of right lower extremity- Primary documented in this encounter Care Teams School Clerk Relationship Specialty Start Date End Date Artemio Jules MD [address] [place] [address] PCP - General Emergency Medicine 09/14/22 documented as of this encounter
--- OUTSIDE RECORDS SUMMARY | 2025-02-08 12:54 | XMS_ITS | Encounter Summary ---
Author Organization Healthcare Address [facility] [place] [address] Care Team Providers Care Event Security Officer Name Role Phone Artemio Jules MD Primary Care Provider [phone] Reason for Visit * Reason Comments Insect Bite Encounter Details Date Type Department Care Team (Late st Contact Info) Description 02/08/2025 12:54 PM EDT - 02/08/2025 2:50 PM EDT Emergency [facility] Emergency Department [address] [place] [address] Cade Rice MD [address] [place] [address] Insect bite of right lower leg, initial encounter (Primary Dx) Discharge Disposition: Home or Self Care Social History Tobacco Use Types Packs/Day Years [...] place to sleep or slept in a [facility] (including now)? No 03/21/2024 CAGE ASSESSMENT Answer [...] drink first t annabel in the morning (EYE-BEAM WARPER) to steady your nerves or to get rid of a hangover? 0 03/21/2024 CAGE Questionnaire Score 0 024 Utilities Answer Date Recorded In the past 12 months has th e electric, gas, oil, or water [email or web address] threatened to shut off services in your home? No 03/21/2024 Comments No Sex and Gender Information Value Date Recorded Sex Assigned at Female 02/08/2025 12:27 PM EDT Legal Sex Female 8:52 PM EDT Gender Identity Not on file Sexual Orientation Not on file documented as of this encounter Last Filed Vital Signs Vital Sign Reading Time Taken Comments Blood Pressure 128/79 02/08/2025 2:48 PM EDT Pulse 64 02/08/2025 2:48 PM EDT Temperature 36.9 C (98.4 F) 02/08/2025 2:48 PM EDT Respiratory Rate 16 02/08/2025 2:48 PM EDT Oxygen Saturation 98% 02/08/2025 2:48 PM EDT Inhaled Oxygen Concentration - - Weight - - Height - - Body Mass Index - - documented in this encounter Functional Status * Calculated C-SSRS Risk Score (Lifetime/Recent) Answer Date of Assessment Author No Risk Indicated 02/08/2025 1:15 PM EDT Giacomo Andrea RN * Question Answer Date of Assessment Author 1. Wish to be (Past 1 Month) No 02/08/2025 1:15 PM EDT Heraclio Cisse RN 2. Non-Specific Active Suici ricky Thoughts (Past 1 Month) No 02/08/2025 1:15 PM EDT Jose Cisse, GEORGI 6. Suicidal Behavior (Lifetime) No 1:15 PM EDT Giacomo Cisse, GEORGI documented as of this encounter Discharge Instructions * Discharge Instructions* Nguyen Johnston APRN - 02/08/2025 2:35 PM EDT You were seen in the emergency department today and evaluated for a wound on the back of your rightthigh. Your ultrasound was reassuring as was your laboratory studies however given the fever we areopting to treat with a short course of oral antibiotics. Please take the medications as prescribed and return to the ED with any signs and symptoms of worsening condition. documented in this encounter Medications at Time of Discharge albuterol (Proventil) (2.5 MG/3ML) 0.083% nebulizer solution [...] aerosol Inhale 2 puffs twice a day. butalbital-acetamin ophen-caffeine 50-325-40 MG tablet Take 2 tablets by mouth every 4 (four) hours if needed for headaches. 60 tablet 4 carvedilol (Coreg) 3.125 MG tablet Take 1 [...] 3 (three) times a day. 30 tablet 4 doxycycline (Adoxa) 100 MG tabletIndications:I nsect bite of right lower leg, initial encounter Take 1 tablet by mouth 2 times a day for 7 days. Take with a full glass of water and do not lie down for at least 30 minutes after 14 tablet 5 02/16/20 25 gabapentin (Neurontin) 400 MG capsule Take 1 capsule (400 mg) by mouth 4 (four) times a day. 60 capsule 4 Jardiance 25 MG Take 1 tablet (25 mg) by mouth 1 (one) time each day. lidocaine (Lidoderm) 5 % patch Apply 1 patch topically 1 (one) time each day at the same time over 12 hours. Remove & discard patch within 12 hours or as directed by MD. 4 patch 4 meclizine (Antivert) 25 MG tablet Take 1 tablet (25 mg) by mouth 3 (three) times a day if needed for dizziness. 30 tablet 4 naloxone (Narcan) 4 mg/0.1 mL nasal spray 1. Give 1 spray in nostril for no/slow breathing or cannot wake after opioid use 2. Call 911 3. Repeat in other nostril if symptoms continue 1 each 4 niacin 100 MG tablet Take 1 tablet (100 mg) by mouth 1 (one) time each day with breakfast. omeprazole (PriLOSEC) [address] capsule Take 1 capsule (40 mg) by mouth 2 (two) times a day. ondansetron ODT (Zofran-ODT) 4 MG disintegrating tablet Take 1 tablet (4 mg) by mouth every 6 (six) hours if needed for nausea or vomiting. 20 tablet 4 polyethylene glycol (Miralax) 17 g packet Take 17 g by mouth 2 (two) times a day. 30 packet 4 Potassium 99 MG tablet Take 1 tablet by mouth 1 (one) time each day. senna-docusate (Arielle-Colace) 8.6-50 MG tablet Take 2 tablets by mouth 2 (two) times a day. 60 tablet 4 spironolactone (Aldactone) 25 MG tablet Take 1 tablet (25 mg) by mouth 1 (one) time each day. torsemide (Demadex) 20 MG tablet Take 1 tablet (20 mg) by mouth 1 (one) time each day. triamcinolone (Kenalog) 0.1 % cream Apply 1 Application topically 2 (two) times a day if needed for rash. zinc gluconate 50 MG tablet Take 1 tablet (50 mg) by mouth 1 (one) time each day. documented as of this encounter Miscellaneous Notes * ED Procedure Note - Nguyen Johnston APRN - 02/08/2025 12:09 PM EDT Associated Order(s): POC Ultrasound - Bedside Procedure Reason: concern for abscess POC Ultrasound - Bedside Performed by: Nguyen Johnston APRN Authorized by: Cade Rice MD Procedure specific details: Limited Soft Tissue Ultrasound A focused ultrasound of soft tissue was performed to evaluate for cellulitis, abscess, or foreign body. The ultrasound was performed with the following indications, as noted in the H&P: Soft tissue swelling and soft tissue redness Identified structures: Location: posterior calf on the RLE Findings Exam of the above structures revealed the following findings: Normal soft tissue ultrasound Impression: Normal limited soft tissue ultrasound The images were Saved in both Qpath - E and PACS. The study was technically adequate. Comments: negative for abscess Nguyen Johnston APRN 02/08/25 1439 Cosigned by Cade Rice MD at 02/09/2025 8:17 AM EDT Associated attestation - Cade Rice MD - 02/09/2025 8:17 AM EDT By electronically signing this report, I, the attending physician, attest that I have personally reviewed the image(s) for the above examination(s) and agree with the final edited report. * ED Provider Notes - Nguyen Johnston APRN - 02/08/2025 12:09 PM EDT Images from the original note were not included. HPI Chief Complaint Patient presents with Insect Bite PIT Note Harriet Norton is a 69 y.o. female who presents to ED with insect bite to right posterior calfsince Monday. Unsure of what type of insect. Says swelling and pain worse since Monday. Reports fever (101.1) and chills yesterday. States was seen at [facility] this am and robert boundary of wound. Endorses allergy to keflex. Patient denies current headache, dysuria, cough, chest pain, shortness of breath , nausea, vomiting, or diarrhea. HAIR SAMPLE MATCHER Note Agree with above, patient has a history of COPD and type 2 diabetes whom states she has trialed benadryl cream, hydrocortisone cream, and neosporin with improved symptoms however [facility] concern for [facility] in the setting of her recent fever. Denies recent abx use. History provided by: Patient historical interpreter used: No Patient History Past Medical History[1] Surgical History[2] Family History[3] Social History[4] Allergies: Allergies[5] Physical Exam ED Triage Vitals [02/08/25 1214] Temp Heart Rate Resp BP 36.6 ??C (97.8 ??F) 80 20 125/76 SpO2 Temp Source Heart Rate Source Patient Position 96 % Oral -- Standing BP Location FiO2 (%) Left arm -- Physical Exam Vitals and nursing note reviewed. Constitutional: General: She is not in acute distress. Appearance: Normal appearance. She is well-developed. HENT: Head: Normocephalic and atraumatic. Nose: No rhinorrhea. Mouth/Throat: Mouth: Mucous membranes are moist. Pharynx: Oropharynx is clear. Eyes: General: Right eye: No discharge. Left eye: No discharge. Conjunctiva/sclera: Conjunctivae normal. Pupils: Pupils are equal, round, and reactive to light. Cardiovascular: Rate and Rhythm: Normal rate and regular rhythm. Pulses: Normal pulses. Heart sounds: Normal heart sounds. No murmur heard. Pulmonary: Effort: Pulmonary effort is normal. No respiratory distress. Breath sounds: Normal breath sounds. No stridor. Abdominal: General: Abdomen is flat. Palpations: Abdomen is soft. Tenderness: There is no abdominal tenderness. Musculoskeletal: General: No swelling. Normal range of motion. Cervical back: Neck supple. No rigidity. Skin: General: Skin is warm and dry. Capillary Refill: Capillary refill takes less than 2 seconds. Comments: 7x 4 cm area of erythema, swelling, and warmth to touch of right posterior lower leg, seephoto below. Minimal tenderness to palpation. Neurological: General: No focal deficit present. Mental Status: She is alert and oriented to person, place, and time. Mental status is at baseline. Psychiatric: Mood and Affect: Mood normal. Behavior: Behavior normal. [place] Coma Scale Score: 15 ED Course & MDM PIT 02/08/25 - 12:42 Scribe Attestation: This note was dictated to me, Fanta Sin, acting as a scribe for Dr. Cade Rice. Attending Attestation: This documentation was recorded by Fanta Sin acting as a scribe in my presence at the time of the encounter and accurately reflects the service I personally performed and thedecisions made by me. Assessment: 69 y.o. female presents to ED with complaint of insect bite. It should be noted that the chronic conditions includes COPD, Afib, JOSE ANGEL, which currently is not at goal therapy. This complicates the clinical picture because it Comorbidities: may be exacerbating symptoms, increases the amount and complexity of data to be reviewed, and complicates the clinical workup Differential Diagnosis includes but it not limited to: cellulitis, abscess, contusion, soft tissue injury, sepsis In order to fully explore the differential diagnosis the following treatments and tests were ordered: All Other Orders Ordered Status Ordering Provider 02/08/25 1439 POC Ultrasound - Bedside Once Comments: This order was created via procedure documentation Preliminary result NGUYEN JOHNSTON 02/08/25 1243 Hepatitis C Antibody - ED Once Final result CADE RICE 02/08/25 1243 ED Protocol - HIV 1/2 Antibody/Antigen Screen Once Final result CADE RICE 02/08/25 1243 ED HIV 1/2 Antibody/Antigen Screen w/Reflex to HIV 1/2 Differentiation PROCEDURE ONCE Final result CADE RICE 02/08/25 1243 CMP STAT Final result CADE RICE 02/08/25 1243 CBC w/diff STAT Final result CADE RICE 02/08/25 1243 Blood Culture (Aerobic/Anaerobet Set) STAT In process CADE RICE ED Course as of 02/08/25 1447 Sat Feb 08, 2025 1409 Glucose(!): 109 [NT] 1409 BUN: 16 [NT] 1409 Creatinine: 0.78 [NT] 1409 Sodium: 142 [NT] 1409 Potassium: 4.5 [NT] 1409 WBC: 5.64 [NT] 1409 Hemoglobin: 12.5 [NT] 1409 Platelet Count: 254 [NT] 1432 Patient notes since being here she has had some swelling to the frontal scalp. She was wearinga hat and when the hat was examined, found to have a small insect inside which is likely the sourceof her itching and soft tissue swelling. Point of care ultrasound was performed and yielded no cellulitis versus abscess that needed drainage. Given recent fever opted to treat with a short course ofantibiotics. Patient was agreeable with this plan of care and was subsequently discharged in stablecondition. [NT] ED Course User Index [NT] Nguyen Johnston APRN Clinical Impressions as of 02/08/257 Insect bite of right lower leg, initial encounter Social Determinates of Health Risks (including Economic Stability, Education and level of understanding, Healthcare access and quality and concerning social factors): None identified on this visit Ultimately, this patient was Was discharged Home (Discharge) The encounter diagnosis was Insect bite of right lower leg, initial encounter. . Patient was counseled on the diagnoses. Discharge medications if any are listed below. Listed medications are thought be either curative for listed diagnoses or will help control ongoing symptoms. Patient is requested to follow up with Patient's Primary Care Provider in order to obtain routine follow-up. Instructions on follow up as well as precautions to return to the ER provided verbally by the EM provider, as well as written in patients discharge education packet. ED Prescriptions Medication Sig Dispense Start Date End Date Auth. Provider doxycycline (Adoxa) 100 MG tablet Take 1 tablet by mouth 2 times a day for 7 days. Take with a fullglass of water and do not lie down for at least 30 minutes after 14 tablet 02/08/2025 02/15/2025 Nguyen Johnston APRN - Discharge Instructions You were seen in the emergency department today and evaluated for a wound on the back of your rightthigh. Your ultrasound was reassuring as was your laboratory studies however given the fever we areopting to treat with a short course of oral antibiotics. Please take the medications as prescribed and return to the ED with any signs and symptoms of worsening condition. Disposition Discharge AVS ([place] Snapshot) - Printed 02/08/2025 Nguyen Johnston APRN 02/08/25 1447 [1] Past Medical History: Diagnosis Date Atrial fibrillation (CMS/HCC) Brain mass Breast cancer COPD (chronic obstructive pulmonary disease) (CMS/HCC) 03/22/2024 JOSE ANGEL (obstructive sleep apnea) [2] Past Surgical History: Procedure Laterality Date BREAST LUMPECTOMY SECTION, CLASSIC 2 different times TONSILLECTOMY [3] Family History Problem Relation Name Age of Onset Anesthesia problems Neg Hx Malig Hyperthermia Neg Hx [4] Tobacco Use Smoking status: Never Smokeless tobacco: Never Vaping Use Vaping status: Never Used Substance Use Topics Alcohol use: Not Currently Drug use: Never [5] Allergies Allergen Reactions Codeine Hives Bactrim [Sulfamethoxazole-Trimethoprim] Rash Cephalexin Rash and Unknown - Patient states they do not know rxn details Hydrocodone Rash Lidocaine Rash Procaine Rash Nguyen Johnston APRN 02/08/25 1448 Cosigned by Cade Rice MD at 02/09/2025 8:17 AM EDT Associated attestation - Cade Rice MD - 02/09/2025 8:17 AM EDT I attest to being involved in providing substantive part of the medical decision making in patient care. * ED Triage Notes - Tiara De La Cruz RN - 02/08/2025 12:09 PM EDT Patient sent to ED by for a bug bite to right calf. Bit on Monday by unknown bug. Reports fever and pain. documented in this encounter Plan of Treatment Upcoming Encounters Date Type Department Care Team (Late st Contact Info) Description 09/19/2025 3:30 PM EDT Ovarian Cancer Screening [facility] Gynecology [address] [place] [address] documented as of this encounter Procedures Procedure Name Priority Date/Time Associated Diagnosis Comments BLOOD CULTURE (AEROBIC/ANAEROBIC SET) STAT 02/08/2025 1:09 PM EDT ED HIV 1/2 ANTIBODY/ANTIGEN SCREEN WITH REFLEX TO HIV I/II DIFFERENTIATION STAT 02/08/2025 12:53 PM EDT ED PROTOCOL HIV 1/2 ANTIBODY/ANTIGEN SCREEN W/REFLEX TO HIV 1/2 ANTIBODY DIFFERENTIATION STAT 02/08/2025 12:53 PM EDT HEPATITIS C ANTIBODY - ED W/REFLEX TO HCV QUANT PCR STAT 02/08/2025 12:53 PM EDT CBC WITH AUTO DIFFERENTIAL STAT 02/08/2025 12:53 PM EDT COMPREHENSIVE METABOLIC PANEL, PLASMA STAT 02/08/2025 12:53 PM EDT [facility] ED POCUS PROCDOC Routine 02/08/2025 12:09 PM EDT documented in this encounter Results * Blood Culture (Aerobic/Anaerobet Set) (02/08/2025 1:09 PM EDT) Pathologist [facility] Culture No growth at day 5 02/13/2025 3:01 PM EDT [facility] Blood Structure of left hand / Unknown Venipuncture / Unknown 02/08/2025 1:09 PM EDT 02/08/2025 2:26 PM EDT us Cade Rice MD LAB MICROBIOLOGY - GENERAL OR DERABLES Final Result Performing Organization Address [facility] Co de Phone Number [facility] [address] [place] [address] * ED HIV 1/2 Antibody/Antigen Screen w/Reflex to HIV 1/2 Differentiation (02/08/2025 12:53 PM EDT) Pathologist [facility] HIV 1 & 2 Antibody/Antigen Screen Non Reactive Non Reactive 02/08/2025 1:56 PM EDT [facility] Comment:Screening for HIV 1 & 2 antibodies, and P24 antigen is NONREACTIVE. No confirmatory testing is required. Blood Venous blood specimen / Unknown Venipuncture / Unknown 02/08/2025 12:53 PM EDT 02/08/2025 1:17 PM EDT us Cade Rice MD LAB BLOOD ORDERABLES Final Re sult Performing Organization Address City/[facility]/ZIP Co de Phone Number [facility] [address] [place] [address] * Hepatitis C Antibody - ED (02/08/2025 12:53 PM EDT) Hepatitis C Antibody Negative Negative 02/08/2025 1:58 PM EDT [facility] Blood Venous blood specimen / Unknown Venipuncture / Unknown 02/08/2025 12:53 PM EDT 02/08/2025 1:17 PM EDT us Cade Rice MD LAB BLOOD ORDERABLES Final Re sult [facility] [address] [place] [address] * CBC w/diff (02/08/2025 12:53 PM EDT) WBC Count 5.64 3.70 - 10.30 10*3/uL LAB HEMATOLOGY METHOD 02/08/2025 12:58 PM EDT [facility] RBC Count 4.40 3.90 - 5.20 10*6/uL LAB HEMATOLOGY METHOD 02/08/2025 12:58 PM EDT [facility] HGB 12.5 11.2 - 15.7 g/dL LAB HEMATOLOGY METHOD 02/08/2025 12:58 PM EDT [facility] HCT 36.8 34.0 - 45.0 % LAB HEMATOLOGY METHOD 02/08/2025 12:58 PM EDT [facility] Platelet Count 254 155 - 369 10*3/uL LAB HEMATOLOGY METHOD 02/08/2025 12:58 PM EDT [facility] MCV 84 79 - 98 fL LAB HEMATOLOGY METHOD 02/08/2025 12:58 PM EDT [facility] MCH 28.4 26.0 - 32.0 pg LAB HEMATOLOGY METHOD 02/08/2025 12:58 PM EDT [facility] MCHC 34.0 30.7 - 35.5 g/dL LAB HEMATOLOGY METHOD 02/08/2025 12:58 PM EDT [facility] RDW 14.4 11.5 - 14.5 % LAB HEMATOLOGY METHOD 02/08/2025 12:58 PM EDT [facility] MPV 9.3 8.8 - 12.5 fL LAB HEMATOLOGY METHOD 02/08/2025 12:58 PM EDT [facility] nRBC 0.0 <=0.0 per 100 WBCs LAB HEMATOLOGY METHOD 02/08/2025 12:58 PM EDT [facility] Differential Type Automated LAB HEMATOLOGY METHOD 02/08/2025 12:58 PM EDT [facility] Neutrophils % 59 % LAB HEMATOLOGY METHOD 02/08/2025 12:58 PM EDT [facility] Lymphocytes % 32 % LAB HEMATOLOGY METHOD 02/08/2025 12:58 PM EDT [facility] Monocytes % 7 % LAB HEMATOLOGY METHOD 02/08/2025 12:58 PM EDT [facility] Eosinophils % 2 % LAB HEMATOLOGY METHOD 02/08/2025 12:58 PM EDT [facility] Basophils % 0 % LAB HEMATOLOGY METHOD 02/08/2025 12:58 PM EDT [facility] Immature Granulocytes % 0 % LAB HEMATOLOGY METHOD 02/08/2025 12:58 PM EDT [facility] Neutrophils Absolute 3.29 1.60 - 6.10 10*3/uL LAB HEMATOLOGY METHOD 02/08/2025 12:58 PM EDT [facility] Lymphocytes Absolute 1.82 1.20 - 3.90 10*3/uL LAB HEMATOLOGY METHOD 02/08/2025 12:58 PM EDT [facility] Monocytes Absolute 0.40 0.30 - 0.90 10*3/uL LAB HEMATOLOGY METHOD 02/08/2025 12:58 PM EDT [facility] Eosinophils Absolute 0.09 0.00 - 0.50 10*3/uL LAB HEMATOLOGY METHOD 02/08/2025 12:58 PM EDT [facility] Basophils Absolute 0.02 0.00 - 0.10 10*3/uL LAB HEMATOLOGY METHOD 02/08/2025 12:58 PM EDT [facility] Immature Granulocytes Absolute 0.02 0.00 - 0.06 10*3/uL LAB HEMATOLOGY METHOD 02/08/2025 12:58 PM EDT [facility] Blood Venous blood specimen / Unknown Venipuncture / Unknown 02/08/2025 12:53 PM EDT 02/08/2025 12:56 PM EDT [facility] - 02/08/2025 12:58 PM EDT Therapeutic decision making should be based on absolute values, rather than percentages. us Cade Rice MD LAB BLOOD ORDERABLES Final Re sult [facility] [address] [place] [address] * (ABNORMAL) CMP (02/08/2025 12:53 PM EDT) Glucose, Plasma 109(H) 74 - 99 mg/dL 02/08/2025 1:16 PM EDT [facility] BUN, Plasma 16 8 - 23 mg/dL 02/08/2025 1:16 PM EDT [facility] Creatinine, Plasma 0.78 0.60 - 1.10 mg/dL 02/08/2025 1:16 PM EDT [facility] BUN/Creatinine Ratio 21 02/08/2025 1:16 PM EDT [facility] Sodium, Plasma 142 136 - 145 mmol/L 02/08/2025 1:16 PM EDT [facility] Potassium, Plasma 4.5 3.6 - 4.9 mmol/L 02/08/2025 1:16 PM EDT [facility] Chloride, Plasma 106 97 - 107 mmol/L 02/08/2025 1:16 PM EDT [facility] CO2, Plasma 26 22 - 29 mmol/L 02/08/2025 1:16 PM EDT [facility] Anion Gap 10 6 - 16 mmol/L 02/08/2025 1:16 PM EDT [facility] Total Calcium, Plasma 9.6 8.9 - 10.2 mg/dL 02/08/2025 1:16 PM EDT [facility] Total Protein 7.8 6.3 - 7.9 g/dL 02/08/2025 1:16 PM EDT [facility] Albumin, Plasma 4.3 3.5 - 5.2 g/dL 02/08/2025 1:16 PM EDT [facility] AST, Plasma 27 10 - 35 U/L 02/08/2025 1:16 PM EDT [facility] Comment:Hemolyzed, result ma y be falsely increased. ALT, Plasma 28 10 - 35 U/L 02/08/2025 1:16 PM EDT [facility] Alkaline Phosphatase, Plasma 170(H) 46 - 142 U/L 02/08/2025 1:16 PM EDT [facility] Total Bilirubin, Plasma 0.4 0.2 - 1.1 mg/dL 02/08/2025 1:16 PM EDT [facility] eGFRcr 82.9 mL/min/1.7 3m*2 02/08/2025 1:16 PM EDT [facility] Comment:Reported eGFRcr in m L/min/1.73m2 is based the CKD-EPI 2020 equation that does not use a race coefficient. Blood Venous blood specimen / Unknown Venipuncture / Unknown 02/08/2025 12:53 PM EDT 02/08/2025 12:56 PM EDT us Cade Rice MD LAB BLOOD ORDERABLES Final Re sult [facility] [address] [place] [address] * [facility] ED POCUS PROCDOC (02/08/2025 12:09 PM EDT) Narrative Cade Rice MD - 02/08/2025 12:09 PM EDT Cade Rice MD 02/09/2025 8:17 AM POC Ultrasound - Bedside Performed by: Nguyen Johnston APRN Authorized by: Cade Rice MD Procedure specific details: Limited Soft Tissue Ultrasound A focused ultrasound of soft tissue was performed to evaluate for cellulitis, abscess, or foreign body. The ultrasound was performed with the following indications, as noted in the H&P: Soft tissue swelling and soft tissue redness Identified structures: Location: posterior calf on the RLE Findings Exam of the above structures revealed the following findings: Normal soft tissue ultrasound Impression: Normal limited soft tissue ultrasound The images were Saved in both Qpath - E and PACS. The study was technically adequate. Comments: negative for abscess us Cade Rice MD IN CLINIC/BEDSIDE ORDERABLES Final Result documented in this encounter Visit Diagnoses Diagnosis Insect bite of right lower leg, initial encounter- Primary documented in this encounter Additional Health Concerns Assessment Noted Time A fall risk assessment has been complete d for the patient 01/02/2025 8:37 AM EDT A Body Mass Index follow-up plan has been documented for the patient 01/02/2025 12:35 PM EDT documented as of this encounter Care Teams Event Security Officer Relationship Specialty Start Date End Date Artemio Jules MD [address] [place] [id number] PCP - General 09/19/22 documented as of this encounter
--- OUTSIDE RECORDS SUMMARY | 2025-02-11 09:30 | XMS_ITS | Encounter Summary ---
[facility] Address [address] [place] [address] Care Team Providers Care Automotive Teacher Name Role Phone Artemio Jules MD Primary Care Provider [phone] Reason for Visit * Diagnostic Imaging (Routine) - Closed Specialty Diagnoses / Procedures Referred By Contac t Referred To Contact Diagnoses Bilateral leg edema Procedures Adult Transthoracic Echo Complete W/ Cont if Necessary Per Protocol IN ECHO TTHRC R-T 2D W/WOM-MODE COMPL SPEC&COLR D IN ECHO TRANSTHORC R-T 2D W/WO M-MODE REC F-UP/LMTD Valentine Moran APRN [address] [place] [address] Phone: tel: fax: [facility] [address] [place] [address] Phone: tel: fax: Referral ID Status Reason Start Date Expiration Date Visits Re quested Visits Authorized [id number] Closed 01/15/2025 04/16/2026 1 1 Encounter Details Date Type Department Care Team (Latest Contact Info) Description 02/11/2025 9:30 AM EDT Ancillary Procedure [facility] [address] [place] [address] [place] [id number] Bilateral leg edema Social History Tobacco Use Types Packs/Day Years [...] Sign Reading Time Taken Comments Blood Pressure 131/67 02/11/2025 9:24 AM EDT Pulse - - Temperature - - Respiratory Rate - - Oxygen Saturation - - Inhaled Oxygen Concentration - - Weight 91.6 kg (202 lb) 02/11/2025 9:24 AM EDT Height 152.4 cm (5') 02/11/2025 9:24 AM EDT Body Mass Index 39.45 02/11/2025 9:24 AM EDT documented in this encounter Plan of Treatment Upcoming Encounters Date Type Department Care Team (Late st Contact Info) Description 05/21/2025 3:30 PM EST Office Visit [facility] PULMON[facility] & [facility] MEDICINE [address] [place] [address] Donna Olivera, WATER TAXI BOAT MATE [address] [place], [place] [id number] documented as of this encounter Procedures Procedure Name Priority Date/Time Associated Diagnosis Comments ECHO COMPLETE W/ DOPPLER AND COLOR FLOW Routine 02/11/2025 10:08 AM EDT Bilateral leg edema documented in this encounter Results * ECHO COMPLETE W/ [...] The left ventricular wall motion is normal. [facility] Luann Moran APRN CV ECHO ORDERABLES Final Result documented in this encounter Visit Diagnoses Diagnosis Bilateral leg edema Edema documented in this encounter Care Teams Automotive Teacher Relationship Specialty Start Date End Date Artemio Jules MD [address] [place], [place] [id number] PCP - General Emergency Medicine 09/14/22 documented as of this encounter
[2025-02-14 23:04] VITALS: BP 168/81; PULSE 85; RESP 18; TEMP 36.9; O2SAT 98; BMI 38.8
--- NOTE | 2025-02-14 23:04 | ECG_ITS ---
APPROVED REPORT Exam: Resting ECG HR:84 bpm ECG Measurements Heart Rate 84 AXES IL 151 P 65 QRSd 74 QRS 8 QT 372 T 37 QTc 413 Conclusion SINUS RHYTHM WITH SINUS ARRHYTHMIA NORMAL ECG UNCONFIRMED REPORT Electronically signed by : CARROLL SANTOS, 02/17/2025 05:06:41
--- OUTSIDE RECORDS SUMMARY | 2025-02-14 23:15 | XMS_ITS | Encounter Summary ---
[facility] [address] [place] [address] Care Team Providers Care Die Lay Out Worker Name Role Phone Artemoi Jules MD Primary Care Provider [phone] Encounter Details Date Type Department Care Team (Latest Contact Info) Description 01/15/2025 Travel Social History Tobacco Use Types Packs/Day Years [...] on file documented as of this encounter Plan of Treatment Upcoming Encounters Date Type Department Care Team (Late st Contact Info) Description 05/21/2025 3:30 PM EST Office Visit [facility] PULMON[facility]ITICAL CARE MEDICINE [address] [place] [address] Donna Olivera APRN [address] [place] [address] documented as of this encounter Visit Diagnoses Not on filedocumented in this encounter Care Teams Die Lay Out Worker Relationship Specialty Start Date End Date Artemio Jules MD [address] [place] [address] PCP - General Emergency Medicine 09/14/22 documented as of this encounter
--- OUTSIDE RECORDS SUMMARY | 2025-02-14 23:15 | XMS_ITS | Encounter Summary ---
Author Organization [facility] Address [address] [place] [address] Care Team Providers Care Transportation Department Supervisor Name Role Phone Artemio Jules MD Primary Care Provider [phone] Reason for Visit * Reason Comments Med Refill Encounter Details Date Type Department Care Team (Late st Contact Info) Description 01/26/2025 Refill [facility] [address] [place] [address] Irma Hatfield MD [address] [place] [address] Med Refill Social History Tobacco Use Types Packs/Day Years [...] on file documented as of this encounter Miscellaneous Notes * Telephone Encounter - Aleta Sharp MA - 01/27/2025 8:58 AM EDT Rx Refill Note Requested Prescriptions Pending Prescriptions Disp Refills Jardiance 25 MG tablet tablet [Pharmacy Med Name: Jardiance 25 MG Oral Tablet] 30 tablet 0 Sig: Take 1 tablet by mouth once daily Last office note states to follow up after echo and echo appointment was cancelled due to patient work schedule Aleta Sharp MA 01/27/25, 08:59 EDT documented in this encounter Plan of Treatment Upcoming Encounters Date Type Department Care Team (Late st Contact Info) Description 05/21/2025 3:30 PM EST Office Visit [facility] PULMONARY & CRITICAL CARE MEDICINE [address] [place] [address] Donna Olivera, VEGETABLE COOK [address] [place] [address] documented as of this encounter Visit Diagnoses Diagnosis Type 2 diabetes mellitus without complication, without long-term current use of insulin documented in this encounter Care Teams Transportation Department Supervisor Relationship Specialty Start Date End Date Artemio Jules MD [address] [place] [address] PCP - General Emergency Medicine 09/14/22 documented as of this encounter
--- OUTSIDE RECORDS SUMMARY | 2025-02-14 23:15 | XMS_ITS | Encounter Summary ---
[facility] Address [address] [place] [address] Care Team Providers Care Resume Specialist Name Role Phone Artemio Jules MD Primary Care Provider [phone] Encounter Details Date Type Department Care Team (Latest Contact Info) Description 02/08/2025 Travel Social History Tobacco Use Types Packs/Day [...] Description 05/21/2025 3:30 PM EST Office Visit [facility] PULMONARY & CRITICAL CARE MEDICINE [address] [place] [address] Donna Olivera, CLAMP REMOVER [address] [place] [address] documented as of this encounter Visit Diagnoses Not on filedocumented in this encounter Care Teams Resume Specialist Relationship Specialty Start Date End Date Artemio Jules MD [address] [place] [address] PCP - General Emergency Medicine 09/14/22 documented as of this encounter
--- NOTE | 2025-02-14 23:16 | PC.NURSE ---
Celia MCNALLY to bedside with ultrasound
--- OUTSIDE RECORDS SUMMARY | 2025-02-14 23:16 | XMS_ITS | Encounter Summary ---
Author Organization [employer] ([place], [place], [place], [place]) Address [address] [place] [address] Care Team Providers Care Parts Salesperson Name Role Phone Artemio Jules MD Primary Care Provider [phone] Encounter Details Date Type Department Care Team (Late st Contact Info) Description 04/01/2021 Transcribed Document [facility] [address] [place] [address] ProviderHemal MD [address] [place], [place] [address] Social History Tobacco Use Types Packs/Day Years Used Date Smoking Tobacco: Never Assessed Comments Unknown Sex and Gender Information Value Date Recorded Sex Assigned at Not on file Legal Sex Female 3:21 PM CDT Gender Identity Not on file Sexual Orientation Not on file documented as of this encounter Miscellaneous Notes * Cerner Conversion Note - Historical ProviderMD - 04/01/2021 2:26 PM CDT Nursing Discharge Summary Entered On: 04/01/2021 14:30 EDT Performed On: 04/01/2021 14:26 EDT by Julieta Melo, glass wool blanket machine feeder Documentation Discharge Date/Time : 04/01/2021 16:05 EDT Julieta Melo RN - 04/01/2021 16:15 EDT Patient Disposition, General : Discharge Discharge To : Home with ambulatory/outpatient follow-up Personal Belongings With Patient : Yes Patient Education Completed : Yes Teaching Method : Printed materials Teaching Evaluation : Verbalizes understanding Julieta Melo RN - 04/01/2021 14:26 EDT documented in this encounter Plan of Treatment Upcoming Encounters Date Type Department Care Team (Late st Contact Info) Description 07/28/2025 2:00 PM EST Office Visit [facility] [place] [address] [place] [address] Austin Kirby MD [address] [place] [address] 09/03/2025 4:15 PM EDT Appointment [facility] [address] [place] [address] documented as of this encounter Visit Diagnoses Not on filedocumented in this encounter Care Teams Parts Salesperson Relationship Specialty Start Date End Date Artemio Jules MD [address] [place] [address] PCP - General Emergency Medicine 07/31/23 documented as of this encounter
--- OUTSIDE RECORDS SUMMARY | 2025-02-14 23:16 | XMS_ITS | Encounter Summary ---
Author Organization [employer] ([place], [place], [place], [place]) Address [address] [place] [address] Care Team Providers Care Clinical Law Professor Name Role Phone Artemio Jules MD Primary Care Provider [phone] Encounter Details Date Type Department Care Team (Late st Contact Info) Description 08/31/2019 Transcribed Document [facility] [place] [facility] [address] [place] [address] ProviderHemal MD [address] [place] [address] Social History Tobacco Use Types Packs/Day Years Used Date Smoking Tobacco: Never Assessed Comments Unknown Sex and Gender Information Value Date Recorded Sex Assigned at Not on file Legal Sex Female 3:21 PM CDT Gender Identity Not on file Sexual Orientation Not on file documented as of this encounter Miscellaneous Notes * Cerner Conversion Note - Hemal ProviderMD - 08/31/2019 8:41 AM CDT [facility] [place] [address] DAVID RIKA L :1955 Visit Time:08/31/2019 Your Visit Summary Your Care Team Primary Provider: JUAN CARLOS BROCK PA-C Secondary Provider: Your Diagnosis Allergic reaction - minor Contact dermatitis Medical Information You may obtain a copy of your Emergency Department visit from Medical Records by calling the hospital phone number listed above and asking to be directed to the Medical Records Department. If you had special tests, such as EKG???s or X-rays, the interpretation of your tests given to you by the Emergency Department Physician is a preliminary report. Some fractures and illnesses fail to show up on preliminary tests. These will be reviewed again and we will call you if there are any new suggestions. If your symptoms continue notify your physician. After you leave, you should follow the instructions provided. What to do next Follow-Up Appointments Follow Up with Follow up with primary care provider When Within 5 to 7 days Comments Follow up with Primay Care if rash does not resolve. Return to ER if symptoms worse or different. Recommend over the counter benadryl as directed. Allergies cephalexin (trouble breathing, hives, hives~trouble breathing) novacaine (hives, hives) xylocaine (hives, hives) Immunizations This Visit No Immunizations Found Medications What How Much When Instructions Next Dose triamcinolone topical (triamcinolone 0.025% topical cream) 1 Application(s) Topical Two Times A Day Duration: 4 Day(s) Printed Prescription The home medications listed are only as accurate as the information you provided. Please continue taking all of your medications prescribed by your Primary Care Provider unless specifically told to change or discontinue the medication. Please direct any questions regarding your home medications to your Primary Care Provider. Take your medications faithfully. Do NOT skip medication. Do NOT stop taking medications without the direction of a physician. Carry a list of your medications with you at all times, and take this medication list with you to your first follow up visit. Report any side effects. Avoid herbal remedies unless discussed with your physician. As part of your treatment plan, your physician may have prescribed a limited course of a controlled substance. This medication may be given to help people with moderate or severe pain or for other medical conditions, but there are risks involved with treatment. Common side effects may include nausea, constipation, drowsiness, sweating, itching, dry mouth, and rash. More serious side effects may include cognitive and motor impairment, like problems with thinking, concentrating, alertness, and movement (e.g. slowed reflexes), and driving and operating heavy machinery can be dangerous. It is important for you to talk to your physician if you have these side effects or questions. These controlled substances can produce physical dependence and be habit-forming if taken for an extended period of time, which means that the body has gotten used to them and may experience withdrawal symptoms if they are abruptly stopped. Withdrawal symptoms can include runny nose, sweating, goose bumps, diarrhea, abdominal cramping, rapid heartbeat, difficulty sleeping, and nervousness. Please dispose of unused and medications per pharmacy guidance. Test Results Laboratory or Other Results This Visit (last charted value for your 08/31/2019 visit) No Laboratory or Other Results This Visit Education Materials Contact Dermatitis Dermatitis is redness, soreness, and swelling (inflammation) of the skin. Contact dermatitis is a reaction to certain substances that touch the skin. There are two types of contact dermatitis: ??? Irritant contact dermatitis. This type is caused by something that irritates your skin, such as dry hands from washing them too much. This type does not require previous exposure to the substance for a reaction to occur. This type is more common. ??? Allergic contact dermatitis. This type is caused by a substance that you are allergic to, such as a nickel allergy or poison yordan. This type only occurs if you have been exposed to the substance (allergen) before. Upon a repeat exposure, your body reacts to the substance. This type is less common. What are the causes? Many different substances can cause contact dermatitis. Irritant contact dermatitis is most commonly caused by exposure to: ??? Makeup. ??? Soaps. ??? Detergents. ??? Bleaches. ??? Acids. ??? Metal salts, such as nickel. Allergic contact dermatitis is most commonly caused by exposure to: ??? Poisonous plants. ??? Chemicals. ??? Jewelry. ??? Latex. ??? Medicines. ??? Preservatives in products, such as clothing. What increases the risk? This condition is more likely to develop in: ??? People who have jobs that expose them to irritants or allergens. ??? People who have certain medical conditions, such as asthma or eczema. What are the signs or symptoms? Symptoms of this condition may occur anywhere on your body where the irritant has touched you or is touched by you. Symptoms include: ??? Dryness or flaking. ??? Redness. ??? Cracks. ??? Itching. ??? Pain or a burning feeling. ??? Blisters. ??? Drainage of small amounts of blood or clear fluid from skin cracks. With allergic contact dermatitis, there may also be swelling in areas such as the eyelids, mouth, or genitals. How is this diagnosed? This condition is diagnosed with a medical history and physical exam. A patch skin test may be performed to help determine the cause. If the condition is related to your job, you may need to see an occupational therapy department chair. How is this treated? Treatment for this condition includes figuring out what caused the reaction and protecting your skin from further contact. Treatment may also include: ??? Steroid creams or ointments. Oral steroid medicines may be needed in more severe cases. ??? Antibiotics or antibacterial ointments, if a skin infection is present. ??? Antihistamine lotion or an antihistamine taken by mouth to ease itching. ??? A bandage (dressing). Follow these instructions at home: Skin Care ??? Moisturize your skin as needed. ??? Apply cool compresses to the affected areas. ??? Try taking a bath with: ? Epsom salts. Follow the instructions on the packaging. You can get these at your local pharmacy or grocery store. ? Baking soda. Pour a small amount into the bath as directed by your health care provider. ? Colloidal oatmeal. Follow the instructions on the packaging. You can get this at your local pharmacy or grocery store. ??? Try applying baking soda paste to your skin. Stir water into baking soda until it reaches a paste-like consistency. ??? Do not scratch your skin. ??? Bathe less frequently, such as every other day. ??? Bathe in lukewarm water. Avoid using hot water. Medicines ??? Take or apply [id number] and prescription medicines only as told by your health care provider. ??? If you were prescribed an antibiotic medicine, take or apply your antibiotic as told by your health care provider. Do not stop using the antibiotic even if your condition starts to improve. General instructions ??? Keep all follow-up visits as told by your health care provider. This is important. ??? Avoid the substance that caused your reaction. If you do not know what caused it, keep a journal to try to track what caused it. Write down: ? What you eat. ? What cosmetic products you use. ? What you drink. ? What you wear in the affected area. This includes jewelry. ??? If you were given a dressing, take care of it as told by your health care provider. This includes when to change and remove it. Contact a health care provider if: ??? Your condition does not improve with treatment. ??? Your condition gets worse. ??? You have signs of infection such as swelling, tenderness, redness, soreness, or warmth in the affected area. ??? You have a fever. ??? You have new symptoms. Get help right away if: ??? You have a severe headache, neck pain, or neck stiffness. ??? You vomit. ??? You feel very sleepy. ??? You notice red streaks coming from the affected area. ??? Your bone or joint underneath the affected area becomes painful after the skin has healed. ??? The affected area turns darker. ??? You have difficulty breathing. This information is not intended to replace advice given to you by your health care provider. Make sure you discuss any questions you have with your health care provider. Document Released: 06/02/2001 Document Revised: 01/17/2018 Document Reviewed: 10/21/2015 [employer] Patient Education ?? 2019 [employer] Emergency Awareness and Preventative Care STROKE is an EMERGENCY Every Minute Counts Act FAST and Check for these signs: FACE Does the face look uneven? ARM Does one arm drift down? SPEECH Does their speech sound strange? TIME Call at any sign of stroke Stroke Risk Factors Atrial Fibrillation (irregular heartbeat) Diabetes Family history of stroke Heart Disease Heavy alcohol use High Blood Pressure High Cholesterol Physical inactivity and obesity Smoking Cigarette Smoking The facts are clear, cigarette smoking will shorten your life. Smoking can cause many illnesses along the way. As a healthcare provider, we recommend that you stop smoking. Assistance with quitting is available by contacting 6-221-AOAA-NOW. This is a free resource providing counseling, support, and referral. Or you may contact your personal physician. National Suicide Prevention Lifeline: The National Suicide Prevention Lifeline is a national network of local crisis centers that provides free and confidential emotional support to people in suicidal crisis or emotional distress 24 hours a day, 7 days a week. Don't Wait! Stop a Heart Attack Before it Starts What is a heart attack? A heart attack is damage or to a part of the heart from severely decreased or lack of blood flow to the heart. Over time, arteries can become narrow from the buildup of fat and cholesterol, which is called plaque. The plaque can rupture causing a blood clot to form. When the blood clot forms, the artery can become severely narrowed or completely blocked, causing a heart attack. Heart attack is the leading cause of in the [place]. 85% of muscle damage occurs within the first 2 hours. Delay in the recognition of heart attack symptoms increases the chances of . Know the early symptoms of a heart attack: Nausea Feeling of fullness in chest Jaw Pain Pain that travels down one or both arms Fatigue/being tired Anxiety Back Pain Chest pressure, squeezing, or discomfort Shortness of breath Sweating, or a cold sweat Feeling of impending doom There are unusual signs of a heart attack, too! Women, the elderly, and diabetics may present with atypical symptoms: Fainting/dizziness Weakness Confusion Risk Factors for a Heart Attack Some heart disease risk factors, such as age and family history, cannot be changed. Others, like smoking and lack of exercise, can be changed. Smoking High Cholesterol High Blood Pressure Family History Obesity Age Gender (Males are at higher risk) Lack of Exercise Diabetes Diet Stress Excessive Alcohol Intake If you or someone you know is experiencing the signs and symptoms of a heart attack, DON???T DELAY. Call immediately and seek help. If someone collapses, perform CPR! Do not attempt to drive if you are having symptoms of heart attack. Hands-Only CPR Why Hands-Only CPR? Hands-Only CPR has been shown to be as effective as conventional CPR for cardiac arrests that occur outside of a hospital. Survival depends on immediately receiving CPR from someone nearby. How do you perform Hands-Only CPR? There are two easy steps: Call if you see a teen or adult collapse Push hard and fast in the center of the chest at a beat of 100 beats per minute. Save a life! 4 WAYS TO GET AHEAD OF SEPSIS SEPSIS is a MEDICAL EMERGENCY. Time matters! Infections put you and your family at risk for a life-threatening condition called sepsis. Sepsis is the body's extreme response to an infection. It is life-threatening, and without timely treatment, sepsis can rapidly lead to tissue damage, organ failure, and . Sepsis happens when an infection you already have-in your skin, lungs, urinary tract or somewhere else-triggers a chain reaction throughout your body. 1 PREVENT INFECTIONS Take good care of chronic conditions. Talk to your doctor about getting the recommended vaccines. 2 PRACTICE GOOD HYGIENE Wash your hands frequently. Keep cuts or open sores clean and covered until they are healed. 3 KNOW THE SYMPTOMS Confusion or disorientation Shortness of breath High heart rate Fever, shivering, or feeling very cold Extreme pain or discomfort Clammy or sweaty skin 4 ACT FAST Get medical care IMMEDIATELY if you suspect sepsis or if you have an infection that is not getting better or is getting worse. To learn more about sepsis and how to prevent infections, visit www.cdc.gov/sepsis. The examination and treatment you have received in the Emergency Department has been done to provide an appropriate evaluation and stabilizing treatment on an emergency basis only. Given the limited resources, it is not meant to be a substitute for complete medical care. The follow-up doctor you named will receive a copy of your records and all test reports. IT IS IMPORTANT THAT YOU SCHEDULE A FOLLOW-UP APPOINTMENT AND ARE RE-EVALUATED. You should report any new complaints, symptoms, or remaining problems at that time. IT IS IMPOSSIBLE FOR THE EMERGENCY DEPARTMENT TO RECOGNIZE AND TREAT ALL ELEMENTS OF INJURY OR ILLNESS IN A SINGLE VISIT. If you have been referred to a specialist physician, it means that we believe you may have a condition that requires the expertise of a specialist. These physicians work in partnership with the hospital and have agreed to see referred patients in their office for further evaluation. KEEP IN MIND THAT THE SPECIALIST HAS HIS/HER OWN OFFICE POLICIES WHICH MAY REQUIRE PROPER INSURANCE OR PAYMENT UP FRONT BEFORE THE SPECIALIST WILL SEE YOU. It is your responsibility to call the specialist physician to make an appointment. We do not have the ability to refer patients to specialists/physicians that work with specific insurance companies. Please be advised that all financial charges or billing practices are determined by that practice, not the hospital. If your insurance company requires that you see a specialist from their approved list, it is your responsibility to contact your insurance company to make those arrangements. It is also your responsibility to follow any other requirements of your insurance company necessary to obtain coverage for claims submitted. We will bill your insurance; however, you are responsible today for any co-pay amounts. You will receive a separate bill for any services you may have received including: emergency, radiology, or pathology physicians. Patient Name:RIKA HERNANDEZ I have received this information and was given the opportunity to ask questions. Patient/Flight Follower Name: Patient/Flight Follower Signature: Relationship to Patient: Clinician/Hospital Flight Follower Signature: Please Provide a Telephone Number Where You Can Be Reached: Is it Permissible To Leave a Message? Date: documented in this encounter Plan of Treatment Upcoming Encounters Date Type Department Care Team (Late st Contact Info) Description 07/28/2025 2:00 PM EST Office Visit [facility] [address] [place] [address] Austin Kirby MD [address] [place] [address] 09/03/2025 4:15 PM EDT Appointment [facility] [address] [place] [address] documented as of this encounter Visit Diagnoses Not on filedocumented in this encounter Care Teams Clinical Law Professor Relationship Specialty Start Date End Date Artemio Jules MD [address] [place] [phone] PCP - General Emergency Medicine 07/31/23 documented as of this encounter
--- OUTSIDE RECORDS SUMMARY | 2025-02-14 23:16 | XMS_ITS | Encounter Summary ---
Author Organization [employer] ([place], [place], [place], [place]) Address [address] [place] [address] Care Team Providers Care Gasoline Engine Assembler Name Role Phone Artemio Jules MD Primary Care Provider [phone] Encounter Details Date Type Department Care Team (Late st Contact Info) Description 01/31/2020 Transcribed Document [facility] [place] [address] [place] [address] Hemal More MD [address] [place] [address] Social History Tobacco Use Types Packs/Day Years Used Date Smoking Tobacco: Never Assessed Comments Unknown Sex and Gender Information Value Date Recorded Sex Assigned at Not on file Legal Sex Female 3:21 PM CDT Gender Identity Not on file Sexual Orientation Not on file documented as of this encounter Miscellaneous Notes * Cerner Conversion Note - Historical ProviderMD - 01/31/2020 9:06 PM CDT Electronically signed by [facility] Conversion .Net Architect Cerner at 10/06/2022 6:15 PM CDT documented in this encounter Plan of Treatment Upcoming Encounters Date Type Department Care Team (Late st Contact Info) Description 07/28/2025 2:00 PM EST Office Visit [facility] [address] [place] [address] Austin Kirby MD [address] [place] [address] 09/03/2025 4:15 PM EDT Appointment [address] [place] [address] documented as of this encounter Visit Diagnoses Not on filedocumented in this encounter Care Teams Gasoline Engine Assembler Relationship Specialty Start Date End Date Artemio Jules MD [address] [place] [id number] PCP - General Emergency Medicine 07/31/23 documented as of this encounter
--- OUTSIDE RECORDS SUMMARY | 2025-02-14 23:16 | XMS_ITS | Encounter Summary ---
Author Organization [facility] Address [address] [place] [address] Care Team Providers Care Powerhouse Electrician Apprentice Name Role Phone Artemio Jules MD Primary Care Provider [phone] Reason for Visit * Reason Onset Date Comments Prior Authorization 01/03/2025 Encounter Details Date Type Department Care Team (Late st Contact Info) Description 01/03/[address] [facility] MEDICINE [address] [place] [address] Donna Olivera, ERECTING CRANE OPERATOR [address] [place] [address] Prior Authorization Social History Tobacco Use Types Packs/Day Years [...] on file documented as of this encounter Progress Notes * Caroline Marx MA - 01/06/2025 9:16 AM EDTAddended by: CAROLINE MARX on: 01/06/2025 09:16 AM Modules accepted: Orders documented in this encounter Miscellaneous Notes * Telephone Encounter - Caroline Marx MA - 01/06/2025 9:15 AM EDT Trelegy 100 filled. Pt notified. * Telephone Encounter - Caroline Marx MA - 01/03/2025 4:00 PM EDT PA for Rx Breztri denied. Insurance will cover Spiriva Respimat, Spiriva Handihaler, Bevespi, Trelegy, Yupelri, Brovana, Perforomist, or Wixela. Please advise an alternate. * Telephone Encounter - Caroline Marx MA - 01/03/2025 1:57 PM EDT PA for Rx Breztri inhaler in process using REINA:[id number] documented in this encounter Plan of Treatment Upcoming Encounters Date Type Department Care Team (Late st Contact Info) Description 05/21/2025 3:30 PM EST Office Visit [facility]ICINE [address] [place] [id number] Donna Olivera, ERECTING CRANE OPERATOR [address] [place] [address] documented as of this encounter Visit Diagnoses Not on filedocumented in this encounter Care Teams Powerhouse Electrician Apprentice Relationship Specialty Start Date End Date Artemio Jules MD [address] [place] [address] PCP - General Emergency Medicine 09/14/22 documented as of this encounter
--- OUTSIDE RECORDS SUMMARY | 2025-02-14 23:16 | XMS_ITS | Encounter Summary ---
Author Organization [employer] ([place], [place], [place], [place]) Address [address] [place] [address] Care Team Providers Care Coal Chemist Name Role Phone Artemio Jules MD Primary Care Provider [phone] Encounter Details Date Type Department Care Team (Late st Contact Info) Description 08/31/2019 Transcribed Document [facility] [place] [address] [place] [address] ProviderHemal MD [address] [place], [place] [address] Social History Tobacco Use Types Packs/Day Years Used Date Smoking Tobacco: Never Assessed Comments Unknown Sex and Gender Information Value Date Recorded Sex Assigned at Not on file Legal Sex Female 3:21 PM CDT Gender Identity Not on file Sexual Orientation Not on file documented as of this encounter Miscellaneous Notes * Cerner Conversion Note - Historical ProviderMD - 08/31/2019 8:21 AM CDT Patient: RIKA HERNANDEZ Age: 64 years Sex: Female : 1955 Associated Diagnoses: Contact dermatitis Author: JUAN CARLOS BROCK PA-C Basic Information Time seen: Date & time 08/31/2019 08:15:00. History source: Patient. Arrival mode: Private vehicle. History limitation: None. Additional information: Chief Complaint from Nursing Triage Note : Chief Complaint 08/31/2019 8:05 EDT Chief Complaint Pt reports possible allergic reaction c/o skin itching and burning to right forearm and left side face. . History of Present Illness The patient presents with skin rash and Patient reports she noticed rash on anterior wrist and left upper neck about 6am. She reports some itching/burning feeling. Reports she has been at work all night and had her head laying on a desk sleeping. Reports no soa, no throat swelling, no throat itching, no fever or chills.. The character of symptoms is rash, itching and burning. The degree at onset was minimal. The degree at present is minimal. Risk factors consist of none. Prior episodes: none. Therapy today: none. Associated symptoms: denies dyspnea, denies wheezing, denies swelling, denies difficulty swallowing, denies chest pain, denies nausea and denies vomiting. Review of Systems Constitutional symptoms: Negative except as documented in HPI. Skin symptoms: Rash. Eye symptoms: Negative except as documented in HPI. ENMT symptoms: Negative except as documented in HPI. Respiratory symptoms: Negative except as documented in HPI. Cardiovascular symptoms: Negative except as documented in HPI. Gastrointestinal symptoms: Negative except as documented in HPI. Musculoskeletal symptoms: Negative except as documented in HPI. Neurologic symptoms: Negative except as documented in HPI. Health Status Allergies: Allergic Reactions (Selected) Severity Not Documented Cephalexin- Hives~trouble breathing, hives and trouble breathing. Novacaine- Hives and hives. Xylocaine- Hives and hives.. Past Medical/ Family/ Social History Medical history Reviewed as documented in chart. Surgical history: No active procedure history items have been selected or recorded.. Family history: No family history items have been selected or recorded.. Social history: Social & Psychosocial Habits Employment/School 08/31/2019 Status: Employed Home/Environment 08/31/2019 Living situation: Home/Independent . Problem list: Active Problems (1) Asthma . Physical Examination Vital Signs Vital Signs/Vital Measures 08/31/2019 8:05 EDT Systolic Blood Pressure 164 mmHg HI Diastolic Blood Pressure 74 mmHg Temperature Source Oral Temperature Mode Fahrenheit Temperature, Fahrenheit 98.5 Deg F Clinical Temperature, C 36.9 Deg C Peripheral Pulse Rate 88 bpm Respiratory Rate 15 Breaths/Min Oxygen Saturation 100 % Oxygen Therapy Mode Room air . General: Alert, no acute distress. Skin: Warm, dry, pink, Rash: right anterior wrist 3 cm diameter redness/hive, left upper neck about 2 cm area of hives, no tenderness. Head: Normocephalic. Neck: Supple. Eye: Normal conjunctiva. Ears, nose, mouth and throat: Oral mucosa moist, no pharyngeal erythema or exudate. Cardiovascular: Regular rate and rhythm, No murmur. Respiratory: Lungs are clear to auscultation, respirations are non-labored, breath sounds are equal. Chest wall: No tenderness, No deformity. Back: Nontender. Musculoskeletal: Normal ROM. Neurological: Alert and oriented to person, place, time, and situation, normal motor observed, normal speech observed, normal coordination observed. Psychiatric: Cooperative, appropriate mood & affect, normal judgment. Medical Decision Making Differential Diagnosis: Contact dermatitis. Rationale: Advised patient to wash hands/wrist and neck gently with soap.. Documents reviewed: Emergency department nurses' notes. Orders Include Previous Orders (Selected) Inpatient Orders Ordered Benadryl: 50 mg, Oral, 1-Time Prescriptions Prescribed triamcinolone 0.025% topical cream: 1 Application, Topical, BID, for 4 Day(s), 15 Gram, 0 Refill(s). Impression and Plan Diagnosis Contact dermatitis - Discharge, Emergency medicine, Medical Plan Condition: Stable. Disposition: Discharged Admit/Transfer/Discharge: Discharge (Order): Start: 08/31/2019 8:24 EDT, Discharge to: Home. Prescriptions: Prescription [facility]: triamcinolone 0.025% topical cream (Prescribe): 1 Application, Topical, BID, for 4 Day(s), 15 Gram, 0 Refill(s). Patient was given the following educational materials: Contact Dermatitis. Follow up with: ; Follow up with primary care provider Within 5 to 7 days Follow up with [facility] if rash does not resolve. Return to ER if symptoms worse or different. Recommend over the counter benadryl as directed. . Counseled: Patient, Regarding diagnosis, Regarding diagnostic results, Regarding treatment plan, Regarding prescription, Patient indicated understanding of instructions. Notes: I certify that the MLP/RECREATIONAL SPORTS DIRECTOR performed the services as delegated. . documented in this encounter Plan of Treatment Upcoming Encounters Date Type Department Care Team (Late st Contact Info) Description 07/28/2025 2:00 PM EST Office Visit [facility] [address] [place] [phone] Austin Kirby MD [address] [place] [address] 09/03/2025 4:15 PM EDT Appointment [address] [place] [address] documented as of this encounter Visit Diagnoses Not on filedocumented in this encounter Care Teams Coal Chemist Relationship Specialty Start Date End Date Artemio Jules MD [address] [place] [phone] PCP - General Emergency Medicine 07/31/23 documented as of this encounter
--- OUTSIDE RECORDS SUMMARY | 2025-02-14 23:16 | XMS_ITS | Encounter Summary ---
[facility] Address [address] [place] [address] Care Team Providers Care Hogshead Salvage Name Role Phone Artemio Jules MD Primary Care Provider [phone] Encounter Details Date Type Department Care Team (Latest Contact Info) Description 02/11/2025 Travel Social History Tobacco Use Types Packs/Day [...] PULMONARY & CRITICAL CARE MEDICINE [address] [place] [address] Donna Olivera, DEICER FINISHER [address] [place] [address] documented as of this encounter Visit Diagnoses Not on filedocumented in this encounter Care Teams Hogshead Salvage Relationship Specialty Start Date End Date Artemio Jules MD [address] [place] [id number] PCP - General Emergency Medicine 09/14/22 documented as of this encounter
--- OUTSIDE RECORDS SUMMARY | 2025-02-14 23:16 | XMS_ITS | Encounter Summary ---
Author Organization [employer] ([place], [place], [place], [place]) Address [address] [place] [address] Care Team Providers Care Wire Bound Box Machine Operator Name Role Phone Artemio Jules MD Primary Care Provider [phone] Encounter Details Date Type Department Care Team (Late st Contact Info) Description 08/31/2019 Transcribed Document [facility] [place] [address] [place] [address] ProviderHemal MD [address] [place] [place], [place] [id number] Social History Tobacco Use Types Packs/Day Years Used Date Smoking Tobacco: Never Assessed Comments Unknown Sex and Gender Information Value Date Recorded Sex Assigned at Not on file Legal Sex Female 3:21 PM CDT Gender Identity Not on file Sexual Orientation Not on file documented as of this encounter Miscellaneous Notes * Cerner Conversion Note - Hemal ProviderMD - 08/31/2019 7:58 AM CDT ED Triage Entered On: 08/31/2019 8:09 EDT Performed On: 08/31/2019 8:05 EDT by LUISITO DURANT RN ED Triage Across the Room Chief Complaint : Pt reports possible allergic reaction c/o skin itching and burning to right forearm and left side face. Triage Date/Time : 08/31/2019 8:05 EDT LUISITO DURANT RN - 08/31/2019 8:05 EDT DCP GENERIC CODE Tracking Acuity : 4 - Non - Urgent Tracking Group : [facility] ED LUISITO DURANT RN - 08/31/2019 8:05 EDT Mode of Arrival : Ambulatory Transported to ED by : Private vehicle To Room Via : Ambulate Accompanied By : Unaccompanied ED Vital Signs : Document Height & Weight : Document ED Allergies : Document ED Reason for Visit : Document LUISITO DURANT RN - 08/31/2019 8:05 EDT Infectious Disease History COVID19 Screening : No Physical contact outside [place] in the last 30 days : No Infectious Disease History : Influenza, Measles, Mumps Isolation Needed : Standard Tuberculosis Symptoms : None LUISITO DURANT RN - 08/31/2019 8:05 EDT Vital Signs ED Temperature Source : Oral Temperature Mode : Fahrenheit Temperature, Fahrenheit : 98.5 Deg F ED Pain : No Clinical Temperature, C : 36.9 Deg C Oxygen Therapy Mode : Room air Peripheral Pulse Rate : 88 bpm Respiratory Rate : 15 Breaths/Min Systolic Blood Pressure : 164 mmHg (HI) Diastolic Blood Pressure : 74 mmHg Oxygen Saturation : 100 % LUISITO DURANT RN - 08/31/2019 8:05 EDT Allergy (As Of: 08/31/2019 08:09:38 EDT) Allergies (Active) cephalexin Estimated Onset Date: Unspecified ; Reactions: hives~trouble breathing, hives, trouble breathing ; Created By: GUADALUPE CASTRO; Reaction Status: Active ; Category: Drug ; Substance: cephalexin ; Type: Allergy ; Updated By: GUADALUPE CASTRO; Reviewed Date: 08/31/2019 8:05 EDT novacaine Estimated Onset Date: Unspecified ; Reactions: hives, hives ; Created By: GUADALUPE CASTRO; Reaction Status: Active ; Category: Drug ; Substance: novacaine ; Type: Allergy ; Updated By: GUADALUPE CASTRO; Reviewed Date: 08/31/2019 8:05 EDT xylocaine Estimated Onset Date: Unspecified ; Reactions: hives, hives ; Created By: GUADALUPE CASTRO; Reaction Status: Active ; Category: Drug ; Substance: xylocaine ; Type: Allergy ; Updated By: GUADALUPE CASTRO; Reviewed Date: 08/31/2019 8:05 EDT Diagnosis Control ED (As Of: 08/31/2019 08:09:38 EDT) Problems(Active) Asthma (SNOMED CT :256422439 ) Name of Problem: Asthma ; Recorder: LUISITO DURANT RN; Confirmation: Confirmed ; Classification: Medical ; Code: [id number] ; Contributor System: Ethonova ; Last Updated: 08/31/2019 8:06 EDT ; Life Cycle Date: 08/31/2019 ; Life Cycle Status: Active ; Vocabulary: SNOMED CT Diagnoses(Active) Allergic reaction - minor Date: 08/31/2019 ; Diagnosis Type: Reason For Visit ; Confirmation: Complaint of ; Clinical Dx: Allergic reaction - minor ; Classification: Medical ; Clinical Service: Emergency medicine ; Code: PNED ; Probability: 0 ; Diagnosis Code: [id number] ED Height and Weight Height Source : Stated Height Entry Format : [place] Height, Feet : 5 ft(Converted to: 152 cm, 60 Inch) Height, Inches : 0 Inch(Converted to: 0 ft 0 Inch, 0.00 cm) Clinical Height : 152.4 cm Weight Source, ED : Critical estimated dosing weight Weight Entry Format : [place] Weight, Pounds : 171 lb Clinical Dosing Weight : 77.73 kg Body Surface Area (BSA) : 1.75 m2 Body Mass Index : 33.5 kg/m2 (HI) [place] Body Weight (IBW) : 45.16 kg LUISITO DURANT RN - 08/31/2019 8:05 EDT Electronically signed by Sai [facility] Conversion Weigher Production Cerner at 10/06/2022 5:56 PM CDT documented in this encounter Plan of Treatment Upcoming Encounters Date Type Department Care Team (Late st Contact Info) Description 07/28/2025 2:00 PM EST Office Visit [facility] [place] [address] [place] [address] Austin Kirby MD [address] [place] [address] 09/03/2025 4:15 PM EDT Appointment [address] [place] [address] documented as of this encounter Visit Diagnoses Not on filedocumented in this encounter Care Teams Wire Bound Box Machine Operator Relationship Specialty Start Date End Date Artemio Jules MD [address] [place] [phone] PCP - General Emergency Medicine 07/31/23 documented as of this encounter
--- OUTSIDE RECORDS SUMMARY | 2025-02-14 23:16 | XMS_ITS | Encounter Summary ---
Author Organization [employer] ([place], [place], [place], [place]) Address [address] [place] [address] Care Team Providers Care Polisher Dial Name Role Phone Artemio Jules MD Primary Care Provider [phone] Encounter Details Date Type Department Care Team (Late st Contact Info) Description 04/01/2021 Transcribed Document [facility] [place] Medicine [address] [place] [address] ProviderHemal MD [address] [place], [place] [address] Social History Tobacco Use Types Packs/Day Years Used Date Smoking Tobacco: Never Assessed Comments Unknown Sex and Gender Information Value Date Recorded Sex Assigned at Not on file Legal Sex Female 3:21 PM CDT Gender Identity Not on file Sexual Orientation Not on file documented as of this encounter Miscellaneous Notes * Cerner Conversion Note - Hemal ProviderMD - 04/01/2021 11:00 AM CDT Patient: RIKA HERNANDEZ Age: 65 years Sex: Female : 1955 Associated Diagnoses: None Author: SOLO CARDENAS MD-CAR Basic Information PCP: Dr. Jules Primary Marine Safety Officer: Dr. Hatfield Chief Complaint Chest Pain, Abnormal Stress History of Present Illness 65 yo female with a hx. of Asthma, HLD, Breast Ca, and Obesity. The patient reports chest tightness that is not associated with exertion, increased SOA that her asthma inhalers do not help with. She also voices concern about her BLE edema. Her echo stress suggest apical/inferior hypokinesis. Dr. Hatfield has referred the patient for [facility]. Patient presents today for [facility] with Dr. Cardenas. Review of Systems Constitutional: Negative except as documented in history of present illness. Eye: Negative except as documented in history of present illness. Ear/Nose/Mouth/Throat: Negative except as documented in history of present illness. Respiratory: Negative except as documented in history of present illness. Cardiovascular: Negative except as documented in history of present illness. Gastrointestinal: Negative except as documented in history of present illness. Genitourinary: Negative except as documented in history of present illness. Hematology/Lymphatics: Negative except as documented in history of present illness. Endocrine: Negative except as documented in history of present illness. Immunologic: Negative except as documented in history of present illness. Musculoskeletal: Negative except as documented in history of present illness. Integumentary: Negative except as documented in history of present illness. Neurologic: Negative except as documented in history of present illness. Psychiatric: Negative except as documented in history of present illness. Health Status No qualifying data available Home Medications (8) Active Albuterol (Eqv-ProAir HFA) 90 mcg/inh inhalation aerosol aspirin 81 mg oral capsule , Oral, Daily atorvastatin 80 mg oral tablet carvedilol 3.125 mg oral tablet 3.125 mg = 1 Tab, Oral, BID montelukast 10 mg oral tablet , Oral, Daily omeprazole 40 mg oral delayed release capsule 40 mg = 1 Cap, Oral, Daily torsemide 20 mg oral tablet Trelegy Ellipta 200 mcg-62.5 mcg-25 mcg/inh inhalation powder , Inhalation, Daily Allergies: Allergic Reactions (Selected) Severity Not Documented Cephalexin- Hives~trouble breathing, hives and trouble breathing. Novacaine- Hives and hives. Xylocaine- Hives and hives. , No qualifying data available Current medications: Medications (5) Active Scheduled: (2) #NaCl 0.9% *FLUSH* inj 10 mL 10 mL, IV Push, Q12H tetracaine 1% inj 2 mL 8 mL, N/A, 1-Time Continuous: (1) NaCl 0.9% TITRATE 500 mL 500 mL, IntraVENous PRN: (2) #NaCl 0.9% *FLUSH* inj 10 mL 10 mL, IV Push, See Comment #NaCl 0.9% *FLUSH* inj 10 mL 5 mL, IV Push, See Comment Problem list: Medical Asthma / SNOMED CT 435664706 / Confirmed Asthma / SNOMED CT 487953025 / Confirmed At risk for sleep apnea / IMO [id number] / Confirmed Breast cancer / SNOMED CT 043775238 / Confirmed HLD - Hyperlipidemia / SNOMED CT 319836489 / Confirmed Obesity / SNOMED CT 0152575185 / Confirmed , Active Problems (6) Asthma Asthma At risk for sleep apnea Breast cancer HLD - Hyperlipidemia Obesity Histories No education data available. Social & Psychosocial Habits Alcohol 01/31/2020 Alcohol Use History, Social Habits No Employment/School 08/31/2019 Status: Employed Home/Environment 08/31/2019 Living situation: Home/Independent Substance Abuse 01/31/2020 Recreational Drug Use History No Recreational Drug Use Last 12 Months No Tobacco 01/31/2020 Smoking Status Never (less than 100 in l Smokeless Tobacco Status Never Past Medical History: Active Obesity (2859690069) HLD - Hyperlipidemia (813115444) Breast cancer (247993764) Asthma (086305658) Family History: No family history items have been selected or recorded. , Non-Contributory Procedure history: mastectomy. bladder repair. Social History Social & Psychosocial Habits Alcohol 01/31/2020 Alcohol Use History, Social Habits No Employment/School 08/31/2019 Status: Employed Home/Environment 08/31/2019 Living situation: Home/Independent Substance Abuse 01/31/2020 Recreational Drug Use History No Recreational Drug Use Last 12 Months No Tobacco 01/31/2020 Smoking Status Never (less than 100 in l Smokeless Tobacco Status Never . Physical Examination VS/Measurements Vitals Signs (last 24 hrs) Last Charted Minimum Maximum Temp 98.2 (APR 01 11:57) 98.2 (APR 01 11:57) 98.2 (APR 01 11:57) Apical HR 85 (APR 01 11:57) 85 (APR 01 11:57) 85 (APR 01 11:57) Mon HR 86 (APR 01 13:30) 86 (APR 01 13:30) 86 (APR 01 13:30) Resp Rate 14 (APR 01 13:30) 14 (APR 01 13:30) 14 (APR 01 13:30) SBP 139 (APR 01 13:30) 130 (APR 01 11:57) 139 (APR 01 13:30) DBP 63 (APR 01 13:30) 63 (APR 01 13:30) 65 (APR 01 11:57) MAP 91 (APR 01 13:30) 91 (APR 01 13:30) 91 (APR 01 13:30) General: Alert and oriented, No acute distress. Eye: Pupils are equal, round and reactive to light, Normal conjunctiva. HENT: Normocephalic. Neck: Supple, No jugular venous distention. Respiratory: Lungs are clear to auscultation, Respirations are non-labored, Symmetrical chest wall expansion. Cardiovascular: Normal rate, Regular rhythm, No murmur, Good pulses equal in all extremities, + small buffalo hump. + stemmer sign. Gastrointestinal: Soft, Non-distended, Normal bowel sounds. Musculoskeletal: Normal range of motion, Normal strength. Integumentary: Warm, Dry, [place]. Neurologic: Alert, Oriented. Psychiatric: Cooperative, Appropriate mood & affect. Review / Management Results review: Labs (Last four charted values) Plt 279 (APR 01) . Impression and Plan IMPRESSION: * Atypical chest Pain & worsening FC II dyspnea. Dyspnea different from Asthma. Obesity w/ body wt gain (? amount) over past year. Stress Echo 03/16/21 suggest Apical/Inferior Hypokinesis. EF 55-60% * Episodic fast HR > 100 bpm by fit bit w/ fatigue, several x/wk. * Morbid obesity related lymphedema torsemide 20mg * HLD (LDL 197, TC 300) Atorvastatin 80 * HTN * Obesity BMI 37 * Hx of breast CA PLAN; LHC via R radial approach with possible percutaneous coronary intervention. Risk and benefits discussed with patient. Patient wishes to proceed. Emphasize lifestyle wt loss. BP log. Consider ACEI/ARB if CAD. Lipid panel f/u w/ Dr. Hatfield, target LDL < 100; screening of 1st degree relatives. SHON w/ Dr. Hatfield. Juxtalite CS. Leg elevation, calf exercises, decrease Torsemide use. Post Cath Addendum: Mild CAD. Recommend pt to have LEVRD, lipid panel, arrhythmia follow-up w/ Dr Hatfield. Decrease Torsemide to PRN use. Electronically signed by Sai, [facility] Conversion Dispute Specialist Cerner at 10/06/2022 6:00 PM CDT documented in this encounter Plan of Treatment Upcoming Encounters Date Type Department Care Team (Late st Contact Info) Description 07/28/2025 2:00 PM EST Office Visit [facility] [place] [address] [place] [address] Austin Kirby MD [address] [facility] [address] [place] [address] 09/03/2025 4:15 PM EDT Appointment [facility] [address] [facility] [address] [place] [address] documented as of this encounter Visit Diagnoses Not on filedocumented in this encounter Care Teams Polisher Dial Relationship Specialty Start Date End Date Artemio Jules MD [address] [place] [address] PCP - General Emergency Medicine 07/31/23 documented as of this encounter
--- OUTSIDE RECORDS SUMMARY | 2025-02-14 23:16 | XMS_ITS | Encounter Summary ---
Author Organization [employer] ([place], [place], [place], [place]) Address [address] [place] [address] Care Team Providers Care Assistant Director Of Public Works Name Role Phone Artemio Jules MD Primary Care Provider [phone] Encounter Details Date Type Department Care Team (Late st Contact Info) Description 01/31/2020 Transcribed Document [facility] Family Medicine [address] [place] [address] ProviderHemal MD [address] [place], [place] [address] Social History Tobacco Use Types Packs/Day Years Used Date Smoking Tobacco: Never Assessed Comments Unknown Sex and Gender Information Value Date Recorded Sex Assigned at Not on file Legal Sex Female 3:21 PM CDT Gender Identity Not on file Sexual Orientation Not on file documented as of this encounter Miscellaneous Notes * Cerner Conversion Note - Hemal ProviderMD - 01/31/2020 7:09 PM CDT ED Triage Entered On: 01/31/2020 19:22 EDT Performed On: 01/31/2020 19:21 EDT by HANS VALLES RN ED Triage Across the Room Chief Complaint : c/o RLE / calf swelling x 5 days. denies injury Triage Date/Time : 01/31/2020 19:21 EDT HANS VALLES RN - 01/31/2020 19:21 EDT DCP GENERIC CODE Tracking Acuity : 3 - Urgent Tracking Group : [facility] HANS VALLES RN - 01/31/2020 19:21 EDT Mode of Arrival : Ambulatory Transported to ED by : Private vehicle To Room Via : Ambulate Accompanied By : Unaccompanied ED Vital Signs : Document Height & Weight : Document ED Allergies : Document ED Reason for Visit : Document HANS VALLES RN - 01/31/2020 19:21 EDT Infectious Disease History Has the patient ever been tested for COVID-19? : No, Patient stated Does patient have symptoms of COVID-19? : No COVID19 Screening : No Experiencing Infectious Disease Symptoms : No symptoms Physical contact outside [place] in the last 30 days : No Infectious Disease History : Influenza, Measles, Mumps Tuberculosis Symptoms : None HANS VALLES RN - 01/31/2020 19:21 EDT Vital Signs ED Temperature Source : Oral Temperature Mode : Fahrenheit Temperature, Fahrenheit : 98.6 Deg F Clinical Temperature, C : 37 Deg C Oxygen Therapy Mode : Room air Peripheral Pulse Rate : 86 bpm Respiratory Rate : 16 Breaths/Min Systolic Blood Pressure : 180 mmHg (HI) Diastolic Blood Pressure : 80 mmHg Oxygen Saturation : 97 % HANS VALLES RN - 01/31/2020 19:21 EDT Allergy (As Of: 01/31/2020 19:22:48 EDT) Allergies (Active) cephalexin Estimated Onset Date: Unspecified ; Reactions: hives~trouble breathing, hives, trouble breathing ; Created By: GUADALUPE Zabala; Reaction Status: Active ; Category: Drug ; Substance: cephalexin ; Type: Allergy ; Updated By: GUADALUPE Zabala; Reviewed Date: 01/31/2020 19:21 EDT novacaine Estimated Onset Date: Unspecified ; Reactions: hives, hives ; Created By: GUADALUPE Zabala; Reaction Status: Active ; Category: Drug ; Substance: novacaine ; Type: Allergy ; Updated By: GUADALUPE Zabala; Reviewed Date: 01/31/2020 19:21 EDT xylocaine Estimated Onset Date: Unspecified ; Reactions: hives, hives ; Created By: GUADALUPE Zabala; Reaction Status: Active ; Category: Drug ; Substance: xylocaine ; Type: Allergy ; Updated By: GUADALUPE Zabala; Reviewed Date: 01/31/2020 19:21 EDT Diagnosis Control ED (As Of: 01/31/2020 19:22:48 EDT) Problems(Active) Asthma (SNOMED CT :[id number] ) Name of Problem: Asthma ; Recorder: LUISITO DURANT RN; Confirmation: Confirmed ; Classification: Medical ; Code: [id number] ; Contributor System: New Screens ; Last Updated: 08/31/2019 8:06 EDT ; Life Cycle Date: 08/31/2019 ; Life Cycle Status: Active ; Vocabulary: SNOMED CT Diagnoses(Active) Leg pain-swelling Date: 01/31/2020 ; Diagnosis Type: Reason For Visit ; Confirmation: Complaint of ; Clinical Dx: Leg pain-swelling ; Classification: Medical ; Clinical Service: Emergency medicine ; Code: PNED ; Probability: 0 ; Diagnosis Code: [id number] ED Height and Weight Height Source : Stated Height Entry Format : [place]ossom Height, Feet : 5 ft(Converted to: 152 cm, 60 Inch) Height, Inches : 0 Inch(Converted to: 0 ft 0 Inch, 0.00 cm) Clinical Height : 152.4 cm Weight Source, ED : Critical estimated dosing weight Weight Entry Format : [place]om Weight, Pounds : 173 lb Clinical Dosing Weight : 78.64 kg Body Surface Area (BSA) : 1.76 m2 Body Mass Index : 33.9 kg/m2 (HI) [place] Body Weight (IBW) : 45.16 kg HANS VALLES RN - 01/31/2020 19:21 EDT Electronically signed by Sai [facility] Conversion Elastic Attacher Coverstitch Cerner at 10/06/2022 6:15 PM CDT documented in this encounter Plan of Treatment Upcoming Encounters Date Type Department Care Team (Late st Contact Info) Description 07/28/2025 2:00 PM EST Office Visit [place] [facility] - [facility] [address] [facility] [address] [place] [address] Austin Kirby MD [address] [address] [place] [address] 09/03/2025 4:15 PM EDT Appointment [address] [place] [address] documented as of this encounter Visit Diagnoses Not on filedocumented in this encounter Care Teams Assistant Director Of Public Works Relationship Specialty Start Date End Date Artemio Jules MD [address] [place] [phone] PCP - General Emergency Medicine 07/31/23 documented as of this encounter
--- OUTSIDE RECORDS SUMMARY | 2025-02-14 23:16 | XMS_ITS | Encounter Summary ---
Author Organization [employer] ([place], [place], [place], [place]) Address [address] [place] [address] Care Team Providers Care Biomedical Equipment Support Specialist Name Role Phone Artemio Jules MD Primary Care Provider [phone] Encounter Details Date Type Department Care Team (Late st Contact Info) Description 08/31/2019 Transcribed Document [facility] [place] [address] [place] [address] ProviderHemal MD [address] [place], [place] [id number] Social History Tobacco Use Types Packs/Day Years [...] ProviderMD - 08/31/2019 7:58 AM CDT ED Assessment Entered On: 08/31/2019 8:49 EDT Performed On: 08/31/2019 8:28 EDT by LUISITO DURANT RN ED Quick Look Assessment Level of Consciousness : Alert Affect/Behavior : Appropriate, Calm, Cooperative Orientation : Oriented x 4 Skin Temperature : Warm Skin Description : Dry LUISITO DURANT RN - 08/31/2019 8:48 EDT ED General-Functional Assess Information Obtained From : Patient Communication Barrier : None Primary Language : Eritrean Any Spiritual/Cultural Needs or Requests : No Currently in Unsafe Situation : No LUISITO DURANT RN - 08/31/2019 8:48 EDT Social Habits Smoking Status : Never (less than 100 in lifetime; none in last 30 days) Smokeless Tobacco Status : Never Desires Tobacco Cessation Calc : 0 LUISITO DURANT RN - 08/31/2019 8:48 EDT Social History (As Of: 08/31/2019 08:49:24 EDT) Home/Environment: Living situation: Home/Independent. (Last Updated: 08/31/2019 08:20:49 EDT by JUAN CARLOS BROCK PA-C) Employment/School: Employed (Last Updated: 08/31/2019 08:20:58 EDT by JUAN CARLOS BROCK PA-C) Integumentary Assessment Integumentary Assessment WDL : WDL with exceptions Integumentary Assessment Comment : red, itchy skin to right upper extremity and left side jaw area. LUISITO DURANT RN - 08/31/2019 8:48 EDT Neurologic ASMT, ED Neurologic Assessment WDL : WDL [place] Coma Scale Link : Open [facility] LUISITO DURANT RN - 08/31/2019 8:48 EDT Manish Coma [place] Best Motor Response : Obey commands [place] Best Verbal Response : Oriented Manish Eye Opening Response : Spontaneous Manish Coma Score : 15 LUISITO DURANT RN - 08/31/2019 8:48 EDT documented in this encounter Plan of Treatment Upcoming Encounters Date Type Department Care Team (Late st Contact Info) Description 07/28/2025 2:00 PM EST Office Visit [place] [facility] - [place] [address] [facility] [address] [place] [address] Austin Kirby MD [address] [place] [address] [place] [address] 09/03/2025 4:15 PM EDT Appointment [facility] [address] [facility] [address] [place] [address] documented as of this encounter Visit Diagnoses Not on filedocumented in this encounter Care Teams Biomedical Equipment Support Specialist Relationship Specialty Start Date End Date Artemio Jules MD [address] [place] [phone] PCP - General Emergency Medicine 07/31/23 documented as of this encounter
--- OUTSIDE RECORDS SUMMARY | 2025-02-14 23:16 | XMS_ITS | Encounter Summary ---
Author Organization [facility] ([place], [place], [place], [place]) Address [address] [place] [address] Care Team Providers Care Paper Making Machine Operator Name Role Phone Artemio Jules MD Primary Care Provider [phone] Encounter Details Date Type Department Care Team (Late st Contact Info) Description 01/31/2020 Transcribed Document [facility] Radiology [address] [place] [address] Lina Boyle MD [facility] Dept [place] [address] Social History Tobacco Use Types Packs/Day Years Used Date Smoking Tobacco: Never Assessed Comments Unknown Sex and Gender Information Value Date Recorded Sex Assigned at Not on file Legal Sex Female 3:21 PM CDT Gender Identity Not on file Sexual Orientation Not on file documented as of this encounter Miscellaneous Notes * Cerner Conversion Note - Lina Boyle MD - 01/31/2020 9:57 PM EDT Patient: RIKA HERNANDEZ Age: 64 years Sex: Female : 1955 Associated Diagnoses: Edema of leg Author: AKILA SIN PA Basic Information Additional information: Chief Complaint from Nursing Triage Note : Chief Complaint 01/31/2020 19:21 EDT Chief Complaint c/o RLE / calf swelling x 5 days. denies injury . History of Present Illness The patient presents with lower extremity pain and lower extremity swelling. The onset was 5 days ago and gradual. The course/duration of symptoms is fluctuating in intensity. Type of injury: none. Location: Right knee calf. The character of symptoms is pain and swelling, not tingling, not numbness, not redness, no bleeding and not loss of mobility. The degree at present is moderate. There are exacerbating factors including weight bearing and walking. The relieving factor is rest. Risk factors consist of none. Prior episodes: none. Therapy today: none. Associated symptoms: none. Patient with bilateral lower extremity edema presents to ED with worsening pain and swelling in her right leg. Denies any specific aggravating or alleviating factors. Reports that she notices that it is worse when she is on her feet all day at work. Denies any additional associated symptoms.. Review of Systems 10 point review of systems negative except as stated previously in history of present illness. Health Status Allergies: Allergic Reactions (Selected) Severity Not Documented Cephalexin- Hives~trouble breathing, hives and trouble breathing. Novacaine- Hives and hives. Xylocaine- Hives and hives.. Past Medical/ Family/ Social History Surgical history: No active procedure history items have been selected or recorded.. Family history: No family history items have been selected or recorded.. Social history: Social & Psychosocial Habits Alcohol 01/31/2020 Alcohol Use History, Social Habits No Employment/School 08/31/2019 Status: Employed Home/Environment 08/31/2019 Living situation: Home/Independent Substance Abuse 01/31/2020 Recreational Drug Use History No Recreational Drug Use Last 12 Months No Tobacco 01/31/2020 Smoking Status Never (less than 100 in l Smokeless Tobacco Status Never . Problem list: Active Problems (1) Asthma . Physical Examination Vital Signs Vital Signs/Vital Measures 01/31/2020 19:21 EDT Systolic Blood Pressure 180 mmHg HI Diastolic Blood Pressure 80 mmHg Temperature Source Oral Temperature Mode Fahrenheit Temperature, Fahrenheit 98.6 Deg F Clinical Temperature, C 37 Deg C Peripheral Pulse Rate 86 bpm Respiratory Rate 16 Breaths/Min Oxygen Saturation 97 % Oxygen Therapy Mode Room air . Measurements 01/31/2020 19:21 EDT Height Source Stated Height Entry Format [place] Height/Length, UGANDAN (ft) 5 ft Height/Length UGANDAN 0 Inch CLINICALHEIGHT 152.4 cm Harman Body Weight 45.16 kg Weight Source, ED Critical estimated dosing weight Weight Entry Format [place] Weight Bengali lb 173 lb CLINICALWEIGHT 78.64 kg Body Surface Area (BSA) 1.76 m2 Body Mass Index 33.9 kg/m2 HI . Oxygen Saturation 01/31/2020 19:21 EDT Oxygen Saturation 97 % . General: Alert, no acute distress. Skin: Warm, dry. Head: Normocephalic, atraumatic. Neck: Supple. Eye: Normal conjunctiva. Ears, nose, mouth and throat: Oral mucosa moist. Cardiovascular: Regular rate and rhythm, Edema: Bilateral, lower extremity, 1+. Respiratory: Respirations are non-labored. Gastrointestinal: Non distended. Musculoskeletal: Normal ROM, normal strength. Neurological: Alert and oriented to person, place, time, and situation, No focal neurological deficit observed. Psychiatric: Cooperative. Medical Decision Making Differential Diagnosis: Deep vein thrombosis, superficial thrombophlebitis, cellulitis. Rationale: Patient with bilateral lower extremity edema presents or ED with complaints of worsening pain in her right lower extremity. No acute abnormalities appreciated on physical exam. Right lower extremity ultrasound negative for DVT. Patient reports having been seen by her primary for her edema and was prescribed diuretic but that it did not help. At time of discharge disposition. Patient is afebrile, nontoxic appearing, vital signs stable and able to maintain O2 sats of 97% on room air. Patient will be discharged home with outpatient follow up to their primary care provider. Patient is agreeable to plan of care of outpatient follow up, provided clear return precautions and demonstrated understanding. . Documents reviewed: Emergency department nurses' notes, emergency department records, prior records. Orders Include Previous Orders (Selected) Inpatient Orders Ordered Discharge: Completed ED Adult Fall Risk Assessment: ED Adult Triage: ED C-SSRS: ED Clinical Reconciliation: ED fuel truck driver: US Veins LE Duplex LTD RT: . Radiology results: Radiology Results (Last 48 hours) [id number] -- 01/31/2020 19:09 US Veins LE Duplex LTD RT (01/31/2020 20:17) Result: RIGHT LOWER EXTREMITY VENOUS DUPLEX DOPPLER EXAMINATIONHISTORY: Right Lower extremity swelling .PROCEDURE: Multiple transverse and longitudinal scans were performed ofthe femoropopliteal deep venous system, with augmentation andcompression maneuvers.FINDINGS: Normal phasic flow was noted in the visualized deep venoussystem. No intraluminal increased echogenicity is noted to suggestthrombus. There is normal compression and augmentation of the venousstructures. No abnormal venous collaterals are seen.IMPRESSION: No evidence of right lower extremity deep venous thrombosis.Images reviewed, interpreted, and dictated by Cayla Mcginnis MD . Impression and Plan Diagnosis Edema of leg - Discharge, Medical Plan Condition: Stable. Disposition: Medically cleared, Discharged Admit/Transfer/Discharge: Discharge (Order): Start: 01/31/2020 20:57 EDT, Discharge to: Home. Patient was given the following educational materials: Edema. Follow up with: ; EMILY LOZANO Within 2 to 3 days Call for follow up appointment Call in the AM Follow-up as instructed Return if condition worsens . Counseled: Patient, Regarding diagnosis, Regarding diagnostic results, Regarding treatment plan, Patient indicated understanding of instructions. Notes: I certify that the Physician Sales Support Specialist performed the services as delegated. I agree with the assessment, treatment plan and disposition of the patient as recorded by the Physician Sales Support Specialist, Dr. Boyle. documented in this encounter Plan of Treatment Upcoming Encounters Date Type Department Care Team (Late st Contact Info) Description 07/28/2025 2:00 PM EST Office Visit [place] [facility] - [facility] [address] [place] [address] [address] [place] [phone] Austin Kirby MD [address] [facility] [address] [place] [address] 09/03/2025 4:15 PM EDT Appointment [facility] [address] [facility] [address] [place] [address] documented as of this encounter Visit Diagnoses Not on filedocumented in this encounter Care Teams Paper Making Machine Operator Relationship Specialty Start Date End Date Artemio Jules MD [address] [place] [address] PCP - General Emergency Medicine 07/31/23 documented as of this encounter
--- OUTSIDE RECORDS SUMMARY | 2025-02-14 23:16 | XMS_ITS | Encounter Summary ---
Author Organization [employer] ([place], [place], [place], [place]) Address [address] [place] [address] Care Team Providers Care Patient Services Coordinator Name Role Phone Artemio Jules MD Primary Care Provider [phone] Encounter Details Date Type Department Care Team (Late st Contact Info) Description 01/31/2020 Transcribed Document [facility] [address] [place] [address] ProviderHemal MD [address] [place], [place] [address] Social History Tobacco Use Types Packs/Day Years [...] ProviderMD - 01/31/2020 7:09 PM CDT ED Assessment Entered On: 01/31/2020 19:25 EDT Performed On: 01/31/2020 19:24 EDT by HANS VALLES RN ED Quick Look Assessment Level of Consciousness : Awake Affect/Behavior : Calm, Cooperative Orientation : Oriented x 4 Skin Temperature : Warm Skin Description : Dry HANS VALLES RN - 01/31/2020 19:24 EDT ED General-Functional Assess Information Obtained From : Patient Preferred Communication Mode : Verbal Communication Barrier : None Primary Language : Greek Any Spiritual/Cultural Needs or Requests : No Currently in Unsafe Situation : No HANS VALLES RN - 01/31/2020 19:24 EDT Social Habits Smoking Status : Never (less than 100 in lifetime; none in last 30 days) Smokeless Tobacco Status : Never Desires Tobacco Cessation Calc : 0 HANS VALLES RN - 01/31/2020 19:24 EDT Social History (As Of: 01/31/2020 19:25:37 EDT) Tobacco: Never (less than 100 in lifetime) Smoking Status. Never Smokeless Tobacco Status. (Last Updated: 01/31/2020 19:25:17 EDT by HANS VALLES, RN) Alcohol: Alcohol Use History No. (Last Updated: 01/31/2020 19:25:20 EDT by HANS VALLES, RN) Substance Abuse: Drug Use Hx: No. Use in Last 12 Months: No. (Last Updated: 01/31/2020 19:25:23 EDT by HANS VALLES, GEORGI) Home/Environment: Living situation: Home/Independent. (Last Updated: 08/31/2019 08:20:49 EDT by JUAN CARLOS BROCK PA-C) Employment/School: Employed (Last Updated: 08/31/2019 08:20:58 EDT by JUAN CARLOS BROCK PA-C) Musculoskeletal Musculoskeletal Assessment WDL : WDL with patient specific variances Musculoskeletal Assessment Comment : RLE swelling/pain HANS VALLES RN - 01/31/2020 19:24 EDT documented in this encounter Plan of Treatment Upcoming Encounters Date Type Department Care Team (Late st Contact Info) Description 07/28/2025 2:00 PM EST Office Visit [place] [facility] - [facility] [address] [facility] [address] [place] [address] Austin Kirby MD [address] [place] [address] [place] [address] 09/03/2025 4:15 PM EDT Appointment [facility] Emergency Department [address] [facility] [address] [place] [address] documented as of this encounter Visit Diagnoses Not on filedocumented in this encounter Care Teams Patient Services Coordinator Relationship Specialty Start Date End Date Artemio Jules MD [address] [place] [address] PCP - General Emergency Medicine 07/31/23 documented as of this encounter
--- OUTSIDE RECORDS SUMMARY | 2025-02-14 23:16 | XMS_ITS | Encounter Summary ---
Author Organization [facility] Address [address] [place] [address] Care Team Providers Care Principal Quality Engineer Name Role Phone Artemio Jules MD Primary Care Provider [phone] Reason for Visit * Reason Comments Med Refill Encounter Details Date Type Department Care Team (Late Contact Info) Description 12/26/2024 Refill [facility] CARDIOLOGY [address] [place] [address] Irma Hatfield MD [address] [place] [address] Med Refill Social History Tobacco [...] encounter Miscellaneous Notes * Telephone Encounter - Nadine Renee RegSched Rep - 12/26/2024 9:26 AM EDT 05/07/2024 labs in chart documented in this encounter Plan of Treatment Upcoming Encounters Date Type Department Care Team (Late Contact Info) Description 05/21/2025 3:30 PM EST Office Visit [facility] PULMONARY & CRITICAL CARE MEDICINE [address] [place] [address] Donna Olivera, MOTOR VEHICLE INSPECTOR [address] [place] [address] documented as of this encounter Visit Diagnoses Diagnosis Type 2 diabetes mellitus without complication, without long-term current use of insulin documented in this encounter Care Teams Principal Quality Engineer Relationship Specialty Start Date End Date Artemio Jules MD [address] [place] [address] PCP - General Emergency Medicine 09/14/22 documented as of this encounter
--- OUTSIDE RECORDS SUMMARY | 2025-02-14 23:16 | XMS_ITS | Encounter Summary ---
Author Organization [employer] ([place], [place], [place], [place]) Address [address] [place] [address] Care Team Providers Care Triage Specialist Name Role Phone Artemio Jules MD Primary Care Provider [phone] Encounter Details Date Type Department Care Team (Late st Contact Info) Description 08/31/2019 Transcribed Document [facility] [place] Family Medicine [address] [place] [address] ProviderHemal MD [address] [place] [address] Social History Tobacco Use Types Packs/Day Years Used Date Smoking Tobacco: Never Assessed Comments Unknown Sex and Gender Information Value Date Recorded Sex Assigned at Not on file Legal Sex Female 3:21 PM CDT Gender Identity Not on file Sexual Orientation Not on file documented as of this encounter Miscellaneous Notes * Cerner Conversion Note - Historical ProviderMD - 08/31/2019 8:24 AM CDT Electronically signed by [facility] Conversion Telesales Manager Cerner at 10/06/2022 5:50 PM CDT documented in this encounter Plan of Treatment Upcoming Encounters Date Type Department Care Team (Late st Contact Info) Description 07/28/2025 2:00 PM EST Office Visit [place] [facility] - [place] [address] [place] [address] Austin Kirby MD [address] [place] [address] [place] [address] 09/03/2025 4:15 PM EDT Appointment [address] [place] [address] documented as of this encounter Visit Diagnoses Not on filedocumented in this encounter Care Teams Triage Specialist Relationship Specialty Start Date End Date Artemio Jules MD [address] [place] [address] PCP - General Emergency Medicine 07/31/23 documented as of this encounter
--- OUTSIDE RECORDS SUMMARY | 2025-02-14 23:16 | XMS_ITS | Encounter Summary ---
Author Organization [employer] ([place], [place], [place], [place]) Address [address] [place] [address] Care Team Providers Care Slackman Name Role Phone Artemio Jules MD Primary Care Provider [phone] Encounter Details Date Type Department Care Team (Late st Contact Info) Description 08/31/2019 Transcribed Document [facility] [place] [address] [place] [address] ProviderHemal MD [address], [place] [id number] Social History Tobacco Use Types Packs/Day Years Used Date Smoking Tobacco: Never Assessed Comments Unknown Sex and Gender Information Value Date Recorded Sex Assigned at Not on file Legal Sex Female 3:21 PM CDT Gender Identity Not on file Sexual Orientation Not on file documented as of this encounter Miscellaneous Notes * Cerner Conversion Note - Historical ProviderMD - 08/31/2019 7:58 AM CDT [place] Suicide Severity Rating Scale (C-SSRS) Entered On: 08/31/2019 8:15 EDT Performed On: 08/31/2019 8:15 EDT by JUMANA AVERY RN [place] Suicide Severity Rating Scale (C-SSRS) CSSRS Past Month Wish to be : No CSSRS Past Month Suicidal Thoughts : No CSSRS Lifetime Suicide Behavior : No Suicide Severity Rating Score : 0 Suicide Severity Rating : No Additional Care Required at this time JUMANA AVERY RN - 08/31/2019 8:15 EDT documented in this encounter Plan of Treatment Upcoming Encounters Date Type Department Care Team (Late st Contact Info) Description 07/28/2025 2:00 PM EST Office Visit [facility] - [place] [address] [place] [address] Austin Kirby MD [address] [facility] [address] [place] [address] 09/03/2025 4:15 PM EDT Appointment [facility] [address] [facility] [address] [place] [address] documented as of this encounter Visit Diagnoses Not on filedocumented in this encounter Care Teams Slackman Relationship Specialty Start Date End Date Artemio Jules MD [address] [place] [address] PCP - General Emergency Medicine 07/31/23 documented as of this encounter
--- OUTSIDE RECORDS SUMMARY | 2025-02-14 23:16 | XMS_ITS | Encounter Summary ---
Author Organization [employer] ([place], [place], [place], [place]) Address [address] [place] [address] Care Team Providers Care Corrugator Operator Helper Name Role Phone Artemio Jules MD Primary Care Provider [phone] Encounter Details Date Type Department Care Team (Late st Contact Info) Description 01/31/2020 Transcribed Document [facility] [place] [address] [place] [address] ProviderHemal MD [address] [place] [address] Social History Tobacco Use Types Packs/Day Years Used Date Smoking Tobacco: Never Assessed Comments Unknown Sex and Gender Information Value Date Recorded Sex Assigned at Not on file Legal Sex Female 3:21 PM CDT Gender Identity Not on file Sexual Orientation Not on file documented as of this encounter Miscellaneous Notes * Cerner Conversion Note - Hemal ProviderMD - 01/31/2020 9:[address] [facility] [id number] DAVID RIKA L :1955 Visit Time:01/31/2020 Your Visit Summary Your Care Team Primary Provider: AKILA SIN Secondary Provider: Your Diagnosis Edema of leg Leg pain-swelling Medical Information You may obtain a copy [...] do next Follow-Up Appointments Follow Up with EMILY LOZANO When Within 2 to 3 days Comments Call for follow up appointment Call in the AM Follow-up as instructed Return if condition worsens Where: [address] [place], [place] [address] [facility] (1) Allergies cephalexin (trouble breathing, hives, hives~trouble breathing) novacaine (hives, hives) xylocaine (hives, hives) Immunizations This Visit No Immunizations Found Medications The home medications listed are only as [...] This Visit (last charted value for your 01/31/2020 visit) Ultrasound 01/31/2020 8:17 PM [employer] [facility] RT: [employer] [facility] RT Education Materials Edema Edema is an abnormal buildup of fluids in the body tissues and under the skin. Swelling of the legs, feet, and ankles is a common symptom that becomes more likely as you get older. Swelling is also common in looser tissues, like around the eyes. When the affected area is squeezed, the fluid may move out of that spot and leave a dent for a few moments. This dent is called pitting edema. There are many possible causes of edema. Eating too much salt (sodium) and being on your feet or sitting for a long time can cause edema in your legs, feet, and ankles. Hot weather may make edema worse. Common causes of edema include: ??? Heart failure. ??? Liver or kidney disease. ??? Weak leg blood vessels. ??? Cancer. ??? An injury. ??? . ??? Medicines. ??? Being obese. ??? Low protein levels in the blood. Edema is usually painless. Your skin may look swollen or shiny. Follow these instructions at home: ??? Keep the affected body part raised (elevated) above the level of your heart when you are sitting or lying down. ??? Do not sit still or stand for long periods of time. ??? Do not wear tight clothing. Do not wear garters on your upper legs. ??? Exercise your legs to get your circulation going. This helps to move the fluid back into your blood vessels, and it may help the swelling go down. ??? Wear elastic bandages or support stockings to reduce swelling as told by your health care provider. ??? Eat a low-salt (low-sodium) diet to reduce fluid as told by your health care provider. ??? Depending on the cause of your swelling, you may need to limit how much fluid you drink (fluid restriction). ??? Take [id number] and prescription medicines only as told by your health care provider. Contact a health care provider if: ??? Your edema does not get better with treatment. ??? You have heart, liver, or kidney disease and have symptoms of edema. ??? You have sudden and unexplained weight gain. Get help right away if: ??? You develop shortness of breath or chest pain. ??? You cannot breathe when you lie down. ??? You develop pain, redness, or warmth in the swollen areas. ??? You have heart, liver, or kidney disease and suddenly get edema. ??? You have a fever and your symptoms suddenly get worse. Summary ??? Edema is an abnormal buildup of fluids in the body tissues and under the skin. ??? Eating too much salt (sodium) and being on your feet or sitting for a long time can cause edema in your legs, feet, and ankles. ??? Keep the affected body part raised (elevated) above the level of your heart when you are sitting or lying down. This information is not intended to replace advice given to you by your health care provider. Make sure you discuss any questions you have with your health care provider. Document Released: 06/05/2006 Document Revised: 06/08/2018 Document Reviewed: 07/08/2017 [employer] Patient Education ?? 2020 [employer]. Emergency Awareness and Preventative Care STROKE is [...] Assistance with quitting is available by contacting 4-749-WDCZNOW. This is a free resource providing counseling, [...] including: emergency, radiology, or pathology physicians. Patient Name:DAVID RIKA L I have received this information and was given the opportunity to ask questions. Patient/Muskrat Trapper Name: Patient/Muskrat Trapper Signature: Relationship to Patient: Clinician/Hospital Muskrat Trapper Signature: Please Provide a Telephone Number Where You Can Be Reached: Is it Permissible To Leave a Message? Date: documented in this encounter Plan of Treatment Upcoming Encounters Date Type Department Care Team (Late st Contact Info) Description 07/28/2025 2:00 PM EST Office Visit [facility] - [place] [address] [place] [address] Austin Kirby MD [address] [facility] [address] [place] [address] 09/03/2025 4:15 PM EDT Appointment [address] [place] [address] documented as of this encounter Visit Diagnoses Not on filedocumented in this encounter Care Teams Corrugator Operator Helper Relationship Specialty Start Date End Date Artemio Jules MD [address] [place] [id number] PCP - General Emergency Medicine 07/31/23 documented as of this encounter
--- OUTSIDE RECORDS SUMMARY | 2025-02-14 23:16 | XMS_ITS | Encounter Summary ---
Author Organization [employer] ([place], [place], [place], [place]) Address [address] [place] [address] Care Team Providers Care Sandwich Machine Operator Name Role Phone Artemio Jules MD Primary Care Provider [phone] Encounter Details Date Type Department Care Team (Late st Contact Info) Description 01/31/2020 Transcribed Document [facility] [place] Family Medicine [address] [place] [address] ProviderHemal MD [address], [place] [id number] Social History Tobacco Use Types Packs/Day Years Used Date Smoking Tobacco: Never Assessed Comments Unknown Sex and Gender Information Value Date Recorded Sex Assigned at Not on file Legal Sex Female 3:21 PM CDT Gender Identity Not on file Sexual Orientation Not on file documented as of this encounter Miscellaneous Notes * [employer]ner Conversion Note - Hemal ProviderMD - 01/31/2020 9:25 PM CDT ED Discharge Entered On: 01/31/2020 21:25 EDT Performed On: 01/31/2020 21:25 EDT by HANS VALLES RN Discharge Process Patient Disposition : Discharge Personal Belongings With Patient : Yes Patient Education Completed : Yes Teaching Evaluation : Verbalizes understanding IV Discontinued : Not applicable Nursing Documentation Completed : Yes HANS VALLES RN - 01/31/2020 21:25 EDT ED Discharge Discharge To : Home with ambulatory/outpatient follow-up Mode Of Departure : Private vehicle Accompanied By : Friend Discharge Instructions Reviewed With, Opportunity For Questions Given : Patient Prescriptions Given to Patient : No HANS VALLES RN - 01/31/2020 21:25 EDT Electronically signed by [facility] Conversion Topstitcher [employer] at 10/06/2022 6:08 PM CDT documented in this encounter Plan of Treatment Upcoming Encounters Date Type Department Care Team (Late st Contact Info) Description 07/28/2025 2:00 PM EST Office Visit [facility] - [facility] [address] [facility] [address] [place] [address] Austin Kirby MD [address] [facility] [address] [place] [address] 09/03/2025 4:15 PM EDT Appointment [facility] Breast [facility] [address] [facility] [address] [place] [address] documented as of this encounter Visit Diagnoses Not on filedocumented in this encounter Care Teams Sandwich Machine Operator Relationship Specialty Start Date End Date Artemio Jules MD [address] [place] [address] PCP - General Emergency Medicine 07/31/23 documented as of this encounter
--- OUTSIDE RECORDS SUMMARY | 2025-02-14 23:16 | XMS_ITS | Clinical Summary ---
Author Organization [facility] Address [address] [place] [address] Care Team Providers Care Denier Control Operator Name Role Phone Artemio Jules MD Primary Care Provider Allergies Active Allergy Reactions Criticality Noted Date Comments Cephalexin Unknown - High Severity Low 02/16/2022 Codeine Hives Medium 08/05/2022 Hydrocodone Rash Low 02/08/2025 Lidocaine Rash Low 02/29/2024 Procaine Rash Low 02/29/2024 Sulfamethoxazole-Trimethoprim Rash Low 2023 Medications omeprazole (priLOSEC) 40 MG capsule Take 1 capsule by mouth Daily. 08/08/19 Active spironolactone (ALDACTONE) 25 MG tablet Take 1 tablet by mouth Daily. 90 tablet 1 12/07/19 Active torsemide (DEMADEX) 20 MG tabletIndications: Swelling of both lower extremities Take 1 tablet by mouth Daily. 30 tablet 11 04/03/20 Active Additional Information Patient taking differently:20 mg Oral Daily,prn, Informant: Self, Reported on 02/08/2025 montelukast (SINGULAIR) 10 MG tablet Take 1 tablet by mouth Daily. Active butalbital-acetami nophen-caffeine (FIORICET, ESGIC) 50-325-40 MG per tablet Take 2 tablets by mouth. 03/24/20 Active Cholecalciferol 25 MCG (1000 UT) tablet Take 1 tablet by mouth Daily. Active cyclobenzaprine (FLEXERIL) 10 MG tablet Take 1 tablet by mouth 3 (Three) Times a Day. 03/24/20 24 Active ondansetron ODT (ZOFRAN-ODT) 4 MG disintegrating tablet Take 1 tablet by mouth Every 6 (Six) Hours As Needed. 03/24/20 24 Active triamcinolone (KENALOG) 0.1 % cream Apply 1 Application topically to the appropriate area as directed. Active zinc gluconate 50 MG tablet Take 1 tablet by mouth Daily. Active POTASSIUM PO Take 1 tablet by mouth Daily. Active meclizine (ANTIVERT) 25 MG tablet Take 1 tablet by mouth. 05/02/20 24 Active coenzyme Q10 100 MG capsule Take 1 capsule by mouth Daily. Active carvedilol (COREG) 3.125 MG tablet Take 1 tablet by mouth Every 12 (Twelve) Hours. 180 tablet 1 07/22/19 25 Active albuterol sulfate HFA 108 (90 Base) MCG/ACT inhalerIndications :Mild intermittent asthma, unspecified whether complicated Inhale 2 puffs Every 4 (Four) Hours As Needed for Wheezing. 18 g 11 11/19/19 25 Active albuterol (PROVENTIL) (2.5 MG/3ML) 0.083% nebulizer solution Take 2.5 mg by nebulization Every 4 (Four) Hours As Needed for Shortness of Air. 120 each 11 11/19/19 25 Active atorvastatin (LIPITOR) 80 MG tablet Take 1 tablet by mouth once daily 90 tablet 1 11/22/19 25 Active Jardiance 25 MG tablet tabletIndications: Type 2 diabetes mellitus without complication, without long-term current use of insulin Take 1 tablet by mouth once daily 30 tablet 12/27/19 25 Active Fluticasone-Umecli din-Vilant (Trelegy Ellipta) 100-62.5-25 MCG/ACT inhaler Inhale 1 puff Daily. 60 each 5 01/07/20 25 Active Budeson-Glycopyrro l-Formoterol (Breztri Aerosphere) 160-9-4.8 MCG/ACT aerosol inhaler Inhale 2 puffs As Needed. Active Active Problems Problem Noted Date Diagnosed Date Chronic fatigue 01/21/2025 Anxiety 01/21/2025 Environmental and seasonal allergies 11/18/2024 Asthma 02/17/2023 Non-smoker 02/17/2023 JOSE ANGEL on CPAP 02/17/2023 Assessment & Plan (05/06/2024 6:02 PM EST): Download reviewed. Good compliance and control. Benefiting from PAP therapy and plan to continue. Hospital discharge follow-up 09/27/2022 Assessment & Plan (09/28/2022 12:56 PM EDT): Recent episode of acute onset shortness of breath that prompted ER visit on 09/18/22. She was diagnosed with COPD exacerbation and NSTEMI and transferred to [facility] and had LHC done with Dr Mcdowell. Left heart cath on 09/19/2022 showed normal coronary arteries. Normal ejection fraction. Normal left ventricular end-diastolic pressure. Echocardiogram 09/19/22-LVEF 60 to 65% right ventricular systolic function is normal. No current chest pain or shortness of breath. Continue follow up with Enterostomal Therapy Nurse. Morbid obesity with BMI of 40.0-44.9, adult 08/18 Assessment & Plan (09/27/2022 7:24 PM EDT): Patient's (Body mass index is 41.79 kg/m .) indicates that they are morbidly/severely obese (BMI > 40 or > 35 with obesity - related health condition) with health conditions that include dyslipidemias . Weight is unchanged. BMI is above average; BMI management plan is completed. We discussed portion control, increasing exercise and pharmacologic options including Ozempic. Patient recently got approved for Ozempic, she plans to start it this week. Instructions on how to administer medication was reviewed with patient. Assessment & Plan (09/14/2022 5:14 PM EDT): Patient's (Body mass index is 42.18 kg/m .) indicates that they are morbidly/severely obese (BMI > 40 or > 35 with obesity - related health condition) with health conditions that include dyslipidemias . Weight is unchanged. BMI is above average; BMI management plan is completed. We discussed portion control, increasing exercise, Weight Watchers or other Commercial based weight reduction program and pharmacologic options including Ozempic. Pulmonary nodule (RLL Stable x 2 years) 09/15/19 Assessment & Plan (02/13/2023 4:33 PM EDT): Stable lung nodule CT scan 10/04/22 Impression: Right lower lobe pulmonary nodule in the superior lateral aspect of the right lower lobe near the minor fissure is felt to represent benign nodule as it has been stable since the prior remote study from April 2021. No suspicious pulmonary nodules are identified. Scar in the lingula is stable. Assessment & Plan (09/14/2022 5:13 PM EDT): Following with Dr. Diallo. Lung imaging ordered for October. Precordial chest pain 09/14/2022 Assessment & Plan (05/06/2024 6:02 PM EST): Atypical chronic chest pain. No changes in pain. Prior normal heart cath in 2022. Doubt this is cardiac related. Assessment & Plan (02/13/2023 4:36 PM EDT): Atypical musculoskeletal chest pain. Patient had a recent normal cardiac work- up, including a left heart cath on 09/19/2022 that revealed normal coronary arteries. - Reassured patient that symptoms were not cardiac related. - Recommended taking hjgh-fyb-jiuzujg NSAID as needed for discomfort. - Keep appointment with PCP next week to discuss further treatment and management. -Report to ER symptoms become severe. Assessment & Plan (09/14/2022 5:12 PM EDT): Resolved. Coronary CTA low risk. Hyperlipidemia LDL goal <100 09/14/2022 Assessment & Plan (05/06/2024 6:02 PM EST): Due for updated lab work. Will give her orders to assess. Orders: Comprehensive Metabolic Panel; Future Lipid Panel; Future Hemoglobin A1c; Future Assessment & Plan (09/14/2022 5:13 PM EDT): No coronary calcifications on CT scan. Goal can probably be loosened somewhat. COPD (chronic obstructive pulmonary disease) Encounters Date Type Department Care Team Description 02/11/2025 9:30 AM EDT Ancillary Procedure [facility] [address] [id number] Bilateral leg edema 02/11/2025 Travel 02/08/2025 11:31 AM EDT - 02/08/2025 11:50 AM EDT Hospital [facility] [address] [place] [address] Hernán Shay PA-C Swelling of right lower extremity (Primary Dx) Discharge Disposition: ED Dismiss - Diverted Elsewhere 02/08/2025 Travel 01/26/2025 Refill [facility] [address] [phone] Irma Hatfield MD Med Refill 01/15/2025 2:45 PM EDT Office Visit [facility] [address] [phone] Valentine Moran APRN Bilateral leg edema (Primary Dx); JOSE ANGEL on CPAP; Chronic fatigue; Chronic obstructive pulmonary disease, unspecified COPD type 01/15/2025 Travel 01/03/2025 Telephone [facility] [address] [place] [address] Donna Olivera APRN Prior Authorization 12/26/2024 Refill [facility] [address] [phone] Irma Hatfield MD Med Refill 11/21/2024 Refill [facility] [address] [phone] Irma Hatfield MD Med Refill 11/20/2024 Telephone [facility] [address] [place] [address] Donna Olivera APRN Prior Authorization 11/18/2024 3:30 PM EDT Office Visit [facility] [address] [place] [address] Jarod, Donna L, HEEL SLUGGER Asthma (Primary Dx); Mild intermittent asthma, unspecified whether complicated; Environmental and seasonal allergies 11/18/2024 2:50 PM EDT Hospital Encounter [facility] [address] [address] 11/18/2024 Travel from Last 3 Months Immunizations Immunization Administration Dates Next Due COVID-19 (MODERNA) 1st,2nd,3 rd Dose Monovalent 05/25/2021,11/06/2020,10/09/2020 Flu Vaccine Quad PF 6-35MO 03/16/2021 Fluzone (or Fluarix & Flulav al for VFC) >6mos 04/23/2020 Fluzone High-Dose 65+YRS 05/20/2024 Fluzone High-Dose 65+yrs 04/11/2022 Influenza Seasonal Injectable 05/25/2015, 015,04/20/2015 Influenza, Unspecified 04/23/2020 Td (TDVAX) 10/10/1997 Family History Medical History Relation Name Comments Cancer Father Sleep apnea Grandson Breast cancer Maternal Aunt UNKNOWN Stroke Mother Ovarian cancer Neg Hx Relation Name Status Comments Brother 1 Alive Brother 2 Alive Brother 3 Alive Daughter Alive Father Grandson Alive Maternal Aunt Mother (Age 89) Sister 1 Alive Sister 2 Alive Social History Tobacco Use Types Packs/Day Years Used Date Smoking Tobacco: Never Passive Smoke Exposure: Never Smokeless Tobacco: Never Tobacco Cessation:Counseling Given: Not Answered Alcohol Use Standard Drinks/Week Comments Not Currently 0 (1 standard drink = 0.6 oz pur e alcohol) PHQ-2 Answer Date Recorded Patient Health Questionnaire-9 Score 8 02/04/2025 Comments No Sex and Gender Information Value Date Recorded Sex Assigned at Not on file Legal Sex Female 12:26 PM EDT Gender Identity Not on file Sexual Orientation Not on file Last Filed Vital Signs Vital Sign Reading Time Taken Comments Blood Pressure 131/67 02/11/2025 9:24 AM EDT Pulse 76 02/08/2025 11:37 AM EDT Temperature 36.4 C (97.5 F) 02/08/2025 11:37 AM EDT Respiratory Rate 16 02/08/2025 11:37 AM EDT Oxygen Saturation 95% 02/08/2025 11:37 AM EDT Inhaled Oxygen Concentration - - Weight 91.6 kg (202 lb) 02/11/2025 9:24 AM EDT Height 152.4 cm (5') 02/11/2025 9:24 AM EDT Body Mass Index 39.45 02/11/2025 9:24 AM EDT Plan of Treatment Upcoming Encounters Date Type Department Care Team (Late st Contact Info) Description 05/21/2025 3:30 PM EST Office Visit [facility] [address] [place] [address] Donna Olivera, HEEL SLUGGER [address] [place] [address] Health Maintenance Due Date Last Done Comments DXA SCAN 1955 DIABETIC EYE EXAM 1966 DIABETIC FOOT EXAM 1966 URINE MICROALBUMIN-CREATININE RATIO (uACR) 1966 COLOGUARD 2001 COLON CANCER SCREENING [address] COLONOGRAPHY 2001 FECAL OCCULT BLOOD TEST 2001 FIT Testing (1 year) 2001 ZOSTER VACCINE (1 of 2) 2006 TDAP/TD VACCINES (2 - Tdap) 10/11/2007 10/10/1997 ANNUAL WELLNESS VISIT 07/26/2023 07/26/2022 COVID-19 Vaccine ( season) 2024 05/25/2021, 11/06/2020, 10/09/2020 HEMOGLOBIN A1C 11/04/2024 05/07/2024, 10/08/2023 INFLUENZA VACCINE 03/19/2025 05/20/2024, , 03/16/2021, Additional history exists LIPID PANEL 05/07/2025 05/07/2024, 10/08/2023 Pneumococcal Vaccine 50+ (1 of 2 - PCV) 05/17/2025 Postponed from 1975 (Patient Refused) MAMMOGRAM 08/30/2026 08/30/2024, 08/17, 07/31/2023, Additional history exists COLONOSCOPY 05/12/2033 05/12/2023, 03/19, 06/19/2022 COLORECTAL CANCER SCREENING 05/12/2033 HEPATITIS C SCREENING Completed 02/08/2025 Procedures Procedure Name Priority Date/Time Associated Diagnosis Comments ECHO COMPLETE W/ DOPPLER AND COLOR FLOW Routine 02/11/2025 10:08 AM EDT Bilateral leg edema SCANNED - PULMONARY RESULTS 01/13/2025 ECG 12-LEAD Routine 11/18/2024 6:03 PM EDT Precordial chest pain PULMONARY FUNCTION TEST Routine 11/18/2024 3:12 PM EDT Asthma XR CHEST PA AND LATERAL Routine 11/18/2024 2:50 PM EDT Asthma HEMOGLOBIN A1C Routine 05/07/2024 Hyperlipidemia LDL goal <100 Hypertension, essential Type 2 diabetes mellitus without complication, without long-term current use of insulin LIPID PANEL Routine 05/07/2024 Hyperlipidemia LDL goal <100 Hypertension, essential Type 2 diabetes mellitus without complication, without long-term current use of insulin MAMMO DIAGNOSTIC DIGITAL TOMOSYNTHESIS BILATERAL W CAD Routine 06/27/2019 10:20 AM EST Chest wall mass from Last 3 Months or Most Recently Relevant to Health Maintenance Results * ECHO COMPLETE W/ DOPPLER AND COLOR FLOW (02/11/2025 10:08 AM EDT) [facility] Signature EF(MOD-bp) 64.8 % LVIDd 5.1 cm LVIDs [...] Moran APRN CV ECHO ORDERABLES Final Result * Pulmonary Results Scan (01/13/2025) Irma Hatfield MD PFT ORDERABLES Final Result * ECG 12-LEAD (11/18/2024 6:03 PM EDT) Narrative LizyMamie RegSched Rep - 11/18/2024 6:03 PM EDT Irma Hatfield MD 11/18/2024 6:04 PM ECG 12 Lead Date/Time: 11/18/2024 6:03 PM Performed by: Irma Hatfield MD Authorized by: Irma Hatfield MD Comparison: compared with previous ECG from 05/06/2025 Similar to previous ECG Rhythm: sinus rhythm Rate: normal Conduction: conduction normal ST Segments: ST segments normal T Waves: T waves normal QRS axis: normal Other: no other findings Clinical impression: normal ECG Procedure Note Irma Hatfield MD - 11/04/2024 12:45 PM EDT Images from the original note were not included. [facility] Provider Note Date: 11/04/2024 Name: Harriet Norton : 1955 PCP: Artemio Jules MD Chief Complaint Patient presents with Sleep Apnea Pt states she is here today for follow up JOSE NAGEL. She is not currentlyusing her machine because it is not working. Hypertension Pt states she is here today for follow up HTN. She states she has hadsome chest pain. Last time was about 2 wks ago. Pain last for a few mins.Does also have some SOA but that's normal for her. Subjective History of Present Illness Harriet Norton is a 69 y.o. female with JOSE ANGEL, HTN who presents todayfor follow up. Reports that C-Pap machine has not been working. Has been acting up. [place] taking this to the company to look at. Feels tired. States that has had some chest tightness and consulted watch that told herto see physician.Last was about 2 weeks ago and states that few minutes. Reports that has right arm tingling and states that it is a little biggerthan the other. Reports that does not get the exercise. Does have shortness of air. No worsening. Worried about strokes.B/P has been good when at the Dr's but has not beenchecking at home. Encouraged to keep log. Labs in chart and reviewed. Has occasional lightheadedness. No falls or injuries. Swelling in legs, same in nature. Has no other concerns or problems. Cardiac history 1. Hyperlipidemia 2. JOSE ANGEL with baseline AHI of 10 on 03/05/2021, REM 46. Last titration was9 cm on 09/11/2021. Current treatment, BiPAP settings: 14/8 cm. 3. Diabetes 4. Lower extremity edema 5. COPD followed with pulmonary *Left heart cath on 09/19/2022- normal coronary arteries. Normal ejectionfraction. Normal left ventricular end-diastolic pressure. *Echocardiogram 09/19/22- Left Ventricle: The left ventricle is normal size. There is normal leftventricular myocardial thickness and mass. The left ventricular systolic function is normal. The LVEF is visually estimated at 60 - 65%. The left ventricular filling pressure is normal. Right Ventricle: The right ventricle is normal in size. The right ventricular systolic function is normal. Pericardium: No pericardial effusion. Allergies Allergen Reactions Codeine Hives Cephalexin Unknown - High Severity Lidocaine Rash Procaine Rash Sulfamethoxazole-Trimethoprim Rash Current Outpatient Medications: atorvastatin (LIPITOR) 80 MG tablet, Take 1 tablet by mouth once daily,Disp: 90 tablet, Rfl: 0 deajtgyghm-knbpdwbgxgosf-pqjnxwvl (FIORICET, ESGIC) 50-325-40 MG pertablet, Take 2 tablets by mouth., Disp: , Rfl: carvedilol (COREG) 3.125 MG tablet, Take 1 tablet by mouth Every 12(Twelve) Hours., Disp: 180 tablet, Rfl: 1 Cholecalciferol 25 MCG (1000 UT) tablet, Take 1 tablet by mouth Daily.,Disp: , Rfl: coenzyme Q10 100 MG capsule, Take 1 capsule by mouth Daily., Disp: ,Rfl: cyclobenzaprine (FLEXERIL) 10 MG tablet, Take 1 tablet by mouth 3(Three) Times a Day., Disp: , Rfl: empagliflozin (Jardiance) 25 MG tablet tablet, Take 1 tablet by mouthDaily., Disp: 42 tablet, Rfl: 0 meclizine (ANTIVERT) 25 MG tablet, Take 1 tablet by mouth., Disp: , Rfl: montelukast (SINGULAIR) 10 MG tablet, Take 1 tablet by mouth Daily.,Disp: , Rfl: omeprazole (priLOSEC) 40 MG capsule, Take 1 capsule by mouth Daily.,Disp: , Rfl: ondansetron ODT (ZOFRAN-ODT) 4 MG disintegrating tablet, Take 1 tabletby mouth Every 6 (Six) Hours As Needed., Disp: , Rfl: POTASSIUM PO, Take 1 tablet by mouth Daily., Disp: , Rfl: spironolactone (ALDACTONE) 25 MG tablet, Take 1 tablet by mouth Daily.,Disp: 90 tablet, Rfl: 1 torsemide (DEMADEX) 20 MG tablet, Take 1 tablet by mouth Daily. (Patienttaking differently: Take 1 tablet by mouth Daily. prn), Disp: 30 tablet,Rfl: 11 triamcinolone (KENALOG) 0.1 % cream, Apply 1 Application topically tothe appropriate area as directed., Disp: , Rfl: zinc gluconate 50 MG tablet, Take 1 tablet by mouth Daily., Disp: , Rfl: albuterol (PROVENTIL) (2.5 MG/3ML) 0.083% nebulizer solution, Take 2.5mg by nebulization Every 4 (Four) Hours As Needed for Shortness of Air.,Disp: 120 each, Rfl: 11 albuterol sulfate HFA 108 (90 Base) MCG/ACT inhaler, Inhale 2 puffsEvery 4 (Four) Hours As Needed for Wheezing., Disp: 18 g, Rfl: 11 Etjpdat-Wmmvgxwiwgz-Pexbbuudan (Breztri Aerosphere) 160-9-4.8 MCG/ACTaerosol inhaler, Inhale 2 puffs 2 (Two) Times a Day., Disp: 1 each, Rfl:0 Past Medical History: Diagnosis Date Asthma Breast cancer right breast 2009 Breast cancer LUMPECTOMY AND RADIATION COPD (chronic obstructive pulmonary disease) Drug therapy High cholesterol Hx of radiation therapy Localized swelling, mass and lump, lower limb, bilateral Nontoxic single thyroid nodule Obstructive sleep apnea (adult) (pediatric) Other emphysema Other hypersomnia Pain in right arm Precordial pain Pure hypercholesterolemia, unspecified SOB (shortness of breath) Solitary pulmonary nodule Past Surgical History: Procedure Laterality Date BRAIN TUMOR EXCISION Right 03/20/2024 WHO grade I meningioma BREAST BIOPSY BREAST LUMPECTOMY right TONSILLECTOMY Family History Problem Relation Age of Onset Stroke Mother Cancer Father Breast cancer Maternal Aunt UNKNOWN Sleep apnea Grandson Ovarian cancer Neg Hx Social History Socioeconomic History Marital status: Single Number of children: 5 Tobacco Use Smoking status: Never Passive exposure: Never Smokeless tobacco: Never Vaping Use Vaping status: Never Used Substance and Sexual Activity Alcohol use: Not Currently Drug use: Not Currently Sexual activity: Defer Objective Vital Signs: BP 120/80 (BP Location: Left arm, Patient Position: Sitting, Cuff Size:Adult) Pulse 89 Ht 152.4 cm (60 ) Wt 90.3 kg (199 lb) SpO2 96% BMI 38.86 kg/m Estimated body mass index is 38.86 kg/m as calculated from thefollowing: Height as of this encounter: 152.4 cm (60 ). Weight as of this encounter: 90.3 kg (199 lb). Physical Exam Constitutional: Appearance: Normal appearance. She is well-developed. HENT: Head: Normocephalic and atraumatic. Eyes: General: No scleral icterus. Pupils: Pupils are equal, round, and reactive to light. Cardiovascular: Rate and Rhythm: Normal rate and regular rhythm. Heart sounds: Normal heart sounds. No murmur heard. Pulmonary: Breath sounds: Normal breath sounds. No wheezing or rhonchi. Musculoskeletal: Right lower leg: No edema. Left lower leg: No edema. Skin: Capillary Refill: Capillary refill takes less than 2 seconds. Coloration: Skin is not cyanotic. Nails: There is no clubbing. Neurological: Mental Status: She is alert and oriented to person, place, and time. Motor: No weakness. Gait: Gait normal. Psychiatric: Mood and Affect: Mood normal. Behavior: Behavior is cooperative. Thought Content: Thought content normal. ECG 12 Lead Date/Time: 11/18/2024 6:03 PM Performed by: Irma Hatfield MD Authorized by: Irma Hatfield MD Comparison: compared with previousECG from 05/06/2025 Similar to previous ECG Rhythm: sinus rhythm Rate: normal Conduction: conduction normal ST Segments: ST segments normal T Waves: T waves normal QRS axis: normal Other: no other findings Clinical impression: normal ECG Assessment and Plan ASSESSMENTS AND ORDERS Diagnoses and all orders for this visit: 1. JOSE ANGEL on PAP (Primary) - PAP Therapy 2. Precordial chest pain 3. Hypertension, essential 4. Palpitations - Holter Monitor - 72 Hour Up To 15 Days; Future Other orders - ECG 12 Lead Other orders ECG 12 Lead PLAN -some irregular rhythms on her watch plan monitor -Htn well controlled, plan home monitor - pap therapy supply refill, pt will take machine into DME. Follow Up Return in about 4 weeks (around 12/02/2024) for Recheck symptoms. Debbi Hatfield MD Cardiology and Sleep [facility] 11/04/2024 Please note that this explicitly excludes time spent on other separatebillable services such as performing procedures or test interpretation,when applicable. This note was created using dictation software which occasionallytranscribes nonsensical phrases. Please contact the provider if anyclarification is needed. Irma Hatfield MD ECG ORDERABLES Final Result * Spirometry with Diffusion Capacity & Lung Volumes (11/18/2024 3:12 PM EDT) Donna Olivera APRN PFT ORDERABLES Final Result * XR Chest PA & Lateral (11/18/2024 2:50 PM EDT) Anatomical Region Laterality Modality Body, Chest N/A Radiographic Bonnie ging 11/18/2024 3:01 PM EDT Impressions 11/18/2024 3:35 PM EDT Impression: Mild cardiomegaly. Electronically Signed: Austin Briggs MD 11/18/2024 3:35 PM EDT Workstation ID: [id number] Narrative 11/18/2024 3:35 PM EDT XR CHEST [...] MD 11/18/2024 3:35 PM EDT Workstation ID: [id number] Donna Olivera APRN IMG DIAGNOSTIC IMAGING ORDER XIAO Final Result * Hemoglobin A1c (05/07/2024) Blood Irma Hatfield MD LAB BLOOD ORDERABLES Final R esult [facility]
[address] [place] [address], [place] [phone] * Lipid Panel (05/07/2024) Blood us Irma Hatfield MD LAB BLOOD ORDERABLES Final R esult [facility]
[address] [place] [address], * Mammo Diagnostic Digital Tomosynthesis Bilateral With CAD (06/27/2019 10:20 AM EST) Anatomical Region Laterality Modality Breast Bilateral Mammography 06/27/2019 11:1 4 AM EST Impressions 06/27/2019 4:28 PM EST Benign bilateral mammogram and benign focused sonographic imaging of the left breast. The patient's palpable abnormality in the far superior right breast/chest wall corresponds to unremarkable fatty tissue on mammographic and ultrasound imaging. RECOMMENDATION: 1. Annual screening mammography. 2. The patient is a candidate for annual screening breast MRI imaging given her heterogeneously dense mammographic pattern and personal history of breast cancer. 3. Clinical followup and management of any palpable abnormalities. BI-RADS CATEGORY 2, BENIGN. CAD was utilized. The standard false-negative rate of mammography is between 10% and 25%. Complex patterns or increased breast density will markedly elevate the false-negative rate of mammography. A results letter, in lay terminology, will be given to the patient at the conclusion of the exam. This report was finalized on 06/27/2019 4:[address] Leah Gomez MD. Narrative 06/27/2019 4:28 PM EST BILATERAL DIAGNOSTIC MAMMOGRAM WITH TOMOSYNTHESIS AND BILATERAL BREAST ULTRASOUND: HISTORY: 64-year-old patient who presents for further evaluation of a palpable abnormality located in the far superior right 11:00 region. The patient has a history of right breast conservation surgery and radiation therapy. She is currently due for bilateral mammographic imaging. TECHNIQUE: Bilateral breast low dose full field digital breast tomosynthesis CC and MLO imaging was performed with 2D and 3D acquisitions. 2-D/3-D left CC focal compression, left MLO focal compression, and left ML views were also obtained. Furthermore, focused sonographic imaging was performed of the right 11:00 palpable area and left superior breast. COMPARISON: 09/06/2017, 07/29/2016, 05/26/2015, and 06/17/2014. FINDINGS: The breast tissue is heterogeneously dense, which may obscure small masses. The right fibroglandular pattern is stable. No new or suspicious findings are identified on the right. There is a 0.5 cm oval mass in the left 10:00-11:00 region. There is also persistent nodularity noted in the left upper outer quadrant. Focused sonographic imaging will be performed for further evaluation. Focused sonographic imaging of the right superior breast/chest wall demonstrates unremarkable fatty tissue at the patient's reported palpable site. No suspicious sonographic findings were identified. Focused sonographic imaging of the left breast demonstrates multiple cysts in the 3:00 position and 0.4 cm cyst in the 10:00 position located 6 cm from the nipple. These findings are felt to correlate to nodularity noted on mammographic imaging. No suspicious sonographic findings were identified. Je[facility] PATEL IM MAMMOGRAPHY ORDERABLES Fi nal Result from Last 3 Months or Most Recently Relevant to Health Maintenance Insurance [employer] MEDICARE ADVANTAGE HMO Care Teams Denier Control Operator Relationship Specialty Start Date End Date Artemio Jules MD [address] [place] [id number] PCP - General Emergency Medicine 09/14/22
--- OUTSIDE RECORDS SUMMARY | 2025-02-14 23:16 | XMS_ITS | Encounter Summary ---
Author Organization [employer] ([place], [place], [place], [place]) Address [address] [place] [address] Care Team Providers Care Tool Trouble Shooter Name Role Phone Artemio Jules MD Primary Care Provider [phone] Encounter Details Date Type Department Care Team (Late st Contact Info) Description 08/31/2019 Transcribed Document [facility] [place] [facility] [place] [address] [place] [address] ProviderHemal MD [address], [place] [id number] Social History Tobacco Use Types Packs/Day Years Used Date Smoking Tobacco: Never Assessed Comments Unknown Sex and Gender Information Value Date Recorded Sex Assigned at Not on file Legal Sex Female 3:21 PM CDT Gender Identity Not on file Sexual Orientation Not on file documented as of this encounter Miscellaneous Notes * Cerner Conversion Note - Hemal ProviderMD - 08/31/2019 8:49 AM CDT ED Discharge Entered On: 08/31/2019 8:50 EDT Performed On: 08/31/2019 8:49 EDT by LUISITO DURANT RN Discharge Process Patient Disposition : Discharge Personal Belongings With Patient : Yes Patient Education Completed : Yes Teaching Evaluation : Verbalizes understanding IV Discontinued : Not applicable Nursing Documentation Completed : Yes LUISITO DURANT RN - 08/31/2019 8:49 EDT ED Discharge Discharge To : Home without planned follow-up Mode Of Departure : Ambulatory Accompanied By : Unaccompanied Discharge Instructions Reviewed With, Opportunity For Questions Given : Patient Prescriptions Given to Patient : Yes Number of Prescriptions Given : 1 LUISITO DURANT, RN - 08/31/2019 8:49 EDT documented in this encounter Plan of Treatment Upcoming Encounters Date Type Department Care Team (Late st Contact Info) Description 07/28/2025 2:00 PM EST Office Visit [place] [facility] - [facility] [address] [facility] [place] [address] [place] [address] Austin Kirby MD [address] [facility] [address] [place] [address] 09/03/2025 4:15 PM EDT Appointment [facility] [address] [facility] [address] [place] [address] documented as of this encounter Visit Diagnoses Not on filedocumented in this encounter Care Teams Tool Trouble Shooter Relationship Specialty Start Date End Date Artemio Jules MD [address] [place] [address] PCP - General Emergency Medicine 07/31/23 documented as of this encounter
--- OUTSIDE RECORDS SUMMARY | 2025-02-14 23:17 | XMS_ITS | Encounter Summary ---
Author Organization Healthcare Address [address] [place] [address] Care Team Providers Care Cognos Architect Name Role Phone Artemio Jules MD Primary Care Provider [phone] Encounter Details Date Type Department Care Team (Latest Contact Info) Description 12/30/2024 Travel Social History Tobacco Use Types Packs/Day [...] place to sleep or slept in a correction (including now)? No 03/21/2024 CAGE ASSESSMENT Answer [...] drink first t annabel in the morning (EYE-TAG CLERK) to steady your nerves or to get rid of a hangover? 0 03/21/2024 CAGE Questionnaire Score 0 024 Utilities Answer Date Recorded In the past 12 months has th e electric, gas, oil, or water company threatened to [...] 09/19/2025 3:30 PM EDT Ovarian Cancer Screening [facility] [address] [place] [address] documented as of this encounter Visit Diagnoses Not on filedocumented in this encounter Additional Health Concerns Assessment Noted Time A fall risk assessment has been complete d for the patient 12/30/2024 8:54 AM EDT A Body Mass Index follow-up plan has been documented for the patient 12/31/2024 1:04 PM EDT documented as of this encounter Care Teams Cognos Architect Relationship Specialty Start Date End Date Artemio Jules MD [address] [place] [address] PCP - General 09/19/22 documented as of this encounter
--- OUTSIDE RECORDS SUMMARY | 2025-02-14 23:17 | XMS_ITS | Encounter Summary ---
Author Organization [employer] ([place], [place], [place], [place]) Address [address] [place] [address] Care Team Providers Care Magnet Valve Assembler Name Role Phone Artemio Jules MD Primary Care Provider [phone] Encounter Details Date Type Department Care Team (Late st Contact Info) Description 04/01/2021 Transcribed Document [facility] Family Medicine [address] [place] [address] Hemal More MD [address] [place], [place] [id number] Social History Tobacco Use Types Packs/Day Years Used Date Smoking Tobacco: Never Assessed Comments Unknown Sex and Gender Information Value Date Recorded Sex Assigned at Not on file Legal Sex Female 3:21 PM CDT Gender Identity Not on file Sexual Orientation Not on file documented as of this encounter Miscellaneous Notes * Cerner Conversion Note - Hemal ProviderMD - 04/01/2021 2:23 PM CDT Patient Education Materials Follows: Radial Site Care This sheet gives you information about how to care for yourself after your procedure. Your health care provider may also give you more specific instructions. If you have problems or questions, contact your health care provider. What can I expect after the procedure? After the procedure, it is common to have: ??? Bruising and tenderness at the catheter insertion area. Follow these instructions at home: Medicines ??? Take [id number] and prescription medicines only as told by your health care provider. Insertion site care ??? Follow instructions from your health care provider about how to take care of your insertion site. Make sure you: ? Wash your hands with soap and water before you change your bandage (dressing). If soap and water are not available, use hand deputy sheriff bailiff. ? Change your dressing as told by your health care provider. ? Leave stitches (sutures), skin glue, or adhesive strips in place. These skin closures may need to stay in place for 2 weeks or longer. If adhesive strip edges start to loosen and curl up, you may trim the loose edges. Do not remove adhesive strips completely unless your health care provider tells you to do that. ??? Check your insertion site every day for signs of infection. Check for: ? Redness, swelling, or pain. ? Fluid or blood. ? Pus or a bad smell. ? Warmth. ??? Do not take baths, swim, or use a hot tub until your health care provider approves. ??? You may shower 24?48 hours after the procedure, or as directed by your health care provider. ? Remove the dressing and gently wash the site with plain soap and water. ? Pat the area dry with a clean towel. ? Do not rub the site. That could cause bleeding. ??? Do not apply powder or lotion to the site. Activity ??? For 24 hours after the procedure, or as directed by your health care provider: ? Do not flex or bend the affected arm. ? Do not push or pull heavy objects with the affected arm. ? Do not drive yourself home from the hospital or clinic. You may drive 24 hours after the procedure unless your health care provider tells you not to. ? Do not operate machinery or power tools. ??? Do not lift anything that is heavier than 10 lb (4.5 kg), or the limit that you are told, until your health care provider says that it is safe. ??? Ask your health care provider when it is okay to: ? Return to work or school. ? Resume usual physical activities or sports. ? Resume sexual activity. General instructions ??? If the catheter site starts to bleed, raise your arm and put firm pressure on the site. If the bleeding does not stop, get help right away. This is a medical emergency. ??? If you went home on the same day as your procedure, a responsible adult should be with you for the first 24 hours after you arrive home. ??? Keep all follow-up visits as told by your health care provider. This is important. Contact a health care provider if: ??? You have a fever. ??? You have redness, swelling, or yellow drainage around your insertion site. Get help right away if: ??? You have unusual pain at the radial site. ??? The catheter insertion area swells very fast. ??? The insertion area is bleeding, and the bleeding does not stop when you hold steady pressure on the area. ??? Your arm or hand becomes pale, cool, tingly, or numb. These symptoms may represent a serious problem that is an emergency. Do not wait to see if the symptoms will go away. Get medical help right away. Call your local emergency services (911 in the [place] Do not drive yourself to the hospital. Summary ??? After the procedure, it is common to have bruising and tenderness at the site. ??? Follow instructions from your health care provider about how to take care of your radial site wound. Check the wound every day for signs of infection. ??? Do not lift anything that is heavier than 10 lb (4.5 kg), or the limit that you are told, until your health care provider says that it is safe. This information is not intended to replace advice given to you by your health care provider. Make sure you discuss any questions you have with your health care provider. Document Revised: 07/11/2018 Document Reviewed: 07/11/2018 [employer] Patient Education ? 2020 [employer] Nutrition Heart-Healthy Eating Plan Heart-healthy meal planning includes: ??? Eating less unhealthy fats. ??? Eating more healthy fats. ??? Making other changes in your diet. Talk with your doctor or a diet specialist (dietitian) to create an eating plan that is right for you. What is my plan? Your doctor may recommend an eating plan that includes: ??? Total fat: % or less of total calories a day. ??? Saturated fat: % or less of total calories a day. ??? Cholesterol: less than mg a day. What are tips for following this plan? Cooking Avoid frying your food. Try to bake, boil, grill, or broil it instead. You can also reduce fat by: ??? Removing the skin from poultry. ??? Removing all visible fats from meats. ??? Steaming vegetables in water or broth. Meal planning ??? At meals, divide your plate into four equal parts: ? Fill one-half of your plate with vegetables and green salads. ? Fill one-fourth of your plate with whole grains. ? Fill one-fourth of your plate with lean protein foods. ??? Eat 4?5 servings of vegetables per day. A serving of vegetables is: ? 1 cup of raw or cooked vegetables. ? 2 cups of raw leafy greens. ??? Eat 4?5 servings of fruit per day. A serving of fruit is: ? 1 medium whole fruit. ? ? cup of dried fruit. ? ? cup of fresh, frozen, or canned fruit. ? ? cup of 100% fruit juice. ??? Eat more foods that have soluble fiber. These are apples, broccoli, carrots, beans, peas, and barley. Try to get 20?30 g of fiber per day. ??? Eat 4?5 servings of nuts, legumes, and seeds per week: ? 1 serving of dried beans or legumes equals ? cup after being cooked. ? 1 serving of nuts is ? cup. ? 1 serving of seeds equals 1 tablespoon. General information ??? Eat more home-cooked food. Eat less restaurant, buffet, and fast food. ??? Limit or avoid alcohol. ??? Limit foods that are high in starch and sugar. ??? Avoid fried foods. ??? Lose weight if you are overweight. ??? Keep track of how much salt (sodium) you eat. This is important if you have high blood pressure. Ask your doctor to tell you more about this. ??? Try to add vegetarian meals each week. Fats ??? Choose healthy fats. These include olive oil and canola oil, flaxseeds, walnuts, almonds, and seeds. ??? Eat more omega-3 fats. These include salmon, mackerel, sardines, tuna, flaxseed oil, and ground flaxseeds. Try to eat fish at least 2 times each week. ??? Check food labels. Avoid foods with trans fats or high amounts of saturated fat. ??? Limit saturated fats. ? These are often found in animal products, such as meats, butter, and cream. ? These are also found in plant foods, such as palm oil, palm kernel oil, and coconut oil. ??? Avoid foods with partially hydrogenated oils in them. These have trans fats. Examples are stick margarine, some tub margarines, cookies, crackers, and other baked goods. What foods can I eat? Fruits All fresh, canned (in natural juice), or frozen fruits. Vegetables Fresh or frozen vegetables (raw, steamed, roasted, or grilled). Green salads. Grains Most grains. Choose whole wheat and whole grains most of the time. Rice and pasta, including brown rice and pastas made with whole wheat. Meats and other proteins Lean, well-trimmed beef, veal, pork, and lopez. Chicken and turkey without skin. All fish and shellfish. Wild duck, rabbit, pheasant, and venison. Egg whites or low-cholesterol egg substitutes. Dried beans, peas, lentils, and tofu. Seeds and most nuts. Dairy Low-fat or nonfat cheeses, including ricotta and mozzarella. Skim or 1% milk that is liquid, powdered, or evaporated. Buttermilk that is made with low-fat milk. Nonfat or low-fat yogurt. Fats and oils Non-hydrogenated (trans-free) margarines. Vegetable oils, including soybean, sesame, sunflower, olive, peanut, safflower, corn, canola, and cottonseed. Salad dressings or mayonnaise made with a vegetable oil. Beverages Mineral water. Coffee and tea. Diet carbonated beverages. Sweets and desserts Sherbet, gelatin, and fruit ice. Small amounts of dark chocolate. Limit all sweets and desserts. Seasonings and condiments All seasonings and condiments. The items listed above may not be a complete list of foods and drinks you can eat. Contact a dietitian for more options. What foods should I avoid? Fruits Canned fruit in heavy syrup. Fruit in cream or butter sauce. Fried fruit. Limit coconut. Vegetables Vegetables cooked in cheese, cream, or butter sauce. Fried vegetables. Grains Breads that are made with saturated or trans fats, oils, or whole milk. Croissants. Sweet rolls. Donuts. High-fat crackers, such as cheese crackers. Meats and other proteins Fatty meats, such as hot dogs, ribs, sausage, aguilar, rib-eye roast or steak. High-fat deli meats, such as salami and bologna. Caviar. Domestic duck and goose. Organ meats, such as liver. Dairy Cream, sour cream, cream cheese, and creamed cottage cheese. Whole-milk cheeses. Whole or 2% milk that is liquid, evaporated, or condensed. Whole buttermilk. Cream sauce or high-fat cheese sauce. Yogurt that is made from whole milk. Fats and oils Meat fat, or shortening. [place] butter, hydrogenated oils, palm oil, coconut oil, palm kernel oil. Solid fats and shortenings, including aguilar fat, salt pork, lard, and butter. Nondairy cream substitutes. Salad dressings with cheese or sour cream. Beverages Regular sodas and juice drinks with added sugar. Sweets and desserts Frosting. Pudding. Cookies. Cakes. Pies. Milk chocolate or white chocolate. Buttered syrups. Full-fat ice cream or ice cream drinks. The items listed above may not be a complete list of foods and drinks to avoid. Contact a dietitian for more information. Summary ??? Heart-healthy meal planning includes eating less unhealthy fats, eating more healthy fats, and making other changes in your diet. ??? Eat a balanced diet. This includes fruits and vegetables, low-fat or nonfat dairy, lean protein, nuts and legumes, whole grains, and heart-healthy oils and fats. This information is not intended to replace advice given to you by your health care provider. Make sure you discuss any questions you have with your health care provider. Document Revised: 08/09/2018 Document Reviewed: 07/13/2018 [employer] Patient Education ? 2020 [employer] Pharmacology Moderate Conscious Sedation, Adult, Care After This sheet gives you information about how to care for yourself after your procedure. Your health care provider may also give you more specific instructions. If you have problems or questions, contact your health care provider. What can I expect after the procedure? After the procedure, it is common to have: ??? Sleepiness for several hours. ??? Impaired judgment for several hours. ??? Difficulty with balance. ??? Vomiting if you eat too soon. Follow these instructions at home: For at least 24 hours after the procedure: ??? Rest. ??? Do not: ? Participate in activities where you could fall or become injured. ? Drive. ? Use machinery. ? Drink alcohol. ? Take sleeping pills or medicines that cause drowsiness. ? Make important decisions or sign legal documents. ? Take care of children on your own. Eating and drinking ??? Follow the diet recommended by your health care provider. ??? Drink enough fluid to keep your urine pale yellow. ??? If you vomit: ? Drink water, juice, or soup when you can drink without vomiting. ? Make sure you have little or no nausea before eating solid foods. General instructions ??? Have a responsible adult stay with you until you are awake and alert. ??? Take [id number] and prescription medicines only as told by your health care provider. ??? Do not smoke. ??? Keep all follow-up visits as told by your health care provider. This is important. Contact a health care provider if: ??? You are still sleepy or having trouble with balance after 24 hours. ??? You feel light-headed. ??? You keep feeling nauseous or you keep vomiting. ??? You develop a rash. ??? You have a fever. ??? You have redness or swelling around the IV site. Get help right away if: ??? You have trouble breathing. ??? You have new-onset confusion at home. Summary ??? After the procedure, it is common to feel sleepy, have impaired judgment, or feel nauseous if you eat too soon. ??? Rest after you get home. Know the things you should not do for at least 24 hours after the procedure. ??? Follow the diet recommended by your health care provider and drink enough fluid to keep your urine pale yellow. ??? Get help right away if you have trouble breathing or new-onset confusion at home. This information is not intended to replace advice given to you by your health care provider. Make sure you discuss any questions you have with your health care provider. Document Revised: 04/30/2020 Document Reviewed: 04/30/2020 Elsevier Patient Education ? 2020 [employer]. documented in this encounter Plan of Treatment Upcoming Encounters Date Type Department Care Team (Late st Contact Info) Description 07/28/2025 2:00 PM EST Office Visit [place] [facility] - [facility] [address] [facility] [address] [place] [address] Austin Kirby MD [address] [facility] [address] [place] [address] 09/03/2025 4:15 PM EDT Appointment [facility] [place] [address] [facility] [address] [place] [address] documented as of this encounter Visit Diagnoses Not on filedocumented in this encounter Care Teams Magnet Valve Assembler Relationship Specialty Start Date End Date Artemio Jules MD [address] [place] [address] PCP - General Emergency Medicine 07/31/23 documented as of this encounter
--- OUTSIDE RECORDS SUMMARY | 2025-02-14 23:17 | XMS_ITS | Referral Summary ---
Author Organization [email or web address] ([place], [place], [place], [place]) Address [address] [place] [address] Care Team Providers Care Supervisor Wood Crew Name Role Phone Artemio Jules MD Primary Care Provider [phone] Allergies Active Allergy Reactions Criticality Noted Date Comments Cephalexin 08/05/2022 Codeine Sulfate 08/05/2022 Medications albuterol HFA (VENTOLIN HFA) 90 mcg/actuation inhaler 2 puffs every 4 (four) hours as needed. 2022 Active atorvastatin (LIPITOR) 80 MG tablet Take 1 tablet (80 mg total) by mouth daily. 07/03/2022 Active carvediloL (COREG) 3.125 MG tablet Take 1 tablet (3.125 mg total) by mouth 2 (two) times daily. 08/06/2022 Active Flovent Diskus 250 mcg/actuation diskus inhaler 1 puff 2 (two) times daily. 05/27/2022 Active furosemide (LASIX) 40 MG tablet Take 1 tablet (40 mg total) by mouth. 06/17/2022 Active montelukast (SINGULAIR) 10 mg tablet Take 1 tablet (10 mg total) by mouth. Active omeprazole (PriLOSEC) 40 MG capsule Take 1 capsule (40 mg total) by mouth daily. 08/08/2022 Active Spiriva Respimat 2.5 mcg/actuation Mist inhalation 2 puffs daily. 08/05/2022 Active Jardiance 10 mg tablet Take 1 tablet (10 mg total) by mouth daily. 05/05/2023 Active Active Problems Problem Noted Date Diagnosed Date Malignant neoplasm of right breast in female, estrogen receptor negative 08/05/2022 Cancer Staging:Clinical stage from 07/20/2001: cT1c, cN0, cM0, ER-, VA-, HER2- - Unsigned Social History Tobacco Use Types Packs/Day Years Used Date Smoking Tobacco: Never Smokeless Tobacco: Never Alcohol Use Standard Drinks/Week Comments Never 0 (1 standard drink = 0.6 oz pur e alcohol) Family and Community Support Answer Ismael e Recorded Help with Day to Day Activities Not on file 06/30/2023 Feeling Lonely or Isolated Not on file 06/30 Educational Attainment Answer Date Emil rded Speak language other than [place] at home Not on file 06/30/2023 Want help with school or training Not on file 06/30/2023 Substance Use Answer Date Recorded Used prescription meds for non-medical reasons N ot on file 06/30/2023 Used illegal drugs past 12 months Not on file 06/30/2023 Comments No Sex and Gender Information Value Date Recorded Sex Assigned at Not on file Legal Sex Female 3:21 PM CDT Gender Identity Not on file Sexual Orientation Not on file Last Filed Vital Signs Vital Sign Reading Time Taken Comments Blood Pressure 116/58 07/29/2024 8:40 AM EST Pulse 96 07/29/2024 8:40 AM EST Temperature 36.8 C (98.2 F) 07/29/2024 8:40 AM EST Respiratory Rate 18 07/29/2024 8:40 AM EST Oxygen Saturation 96% 07/29/2024 8:40 AM EST Inhaled Oxygen Concentration - - Weight 92.4 kg (203 lb 12.8 oz) 07/29/2024 8:40 AM EST Height 152.4 cm (5') 07/29/2024 8:40 AM EST Body Mass Index 39.8 07/29/2024 8:40 AM EST Plan of Treatment Upcoming Encounters Date Type Department Care Team (Late st Contact Info) Description 07/28/2025 2:00 PM EST Office Visit [facility] [address] [place] [address] Austin Kirby MD [address] [place] [address] 09/03/2025 4:15 PM EDT Appointment [facility] [address] [place] [address] Procedures Procedure Name Priority Date/Time Associated Diagnosis Comments MM DIGITAL MAMMO SCREEN WITH CORINE BILATERAL Routine 08/30/2024 11:30 AM EDT Visit for screening mammogram from Last 3 Months or Most Recently Relevant to Health Maintenance Results * MM digital mammo screen with corine bilateral (08/30/2024 11:30 AM EDT) Anatomical Region Laterality Modality Breast Bilateral Mammography 08/30/2024 1:07 PM EDT Impressions 08/30/2024 1:14 PM EDT FINAL IMPRESSION: Stable mammogram. No findings suspicious for malignancy. Bi-RADS: ACR BI-RADS 2: Benign RECOMMENDATIONS: Annual screening mammography. This report will serve as the order for the recommended imaging studies/procedures. A letter including results and recommendations was sent to the patient. Density notification was included for all patients. Patient information was entered into a reminder system with a target due date for the next mammogram. At our facility, a tejon marker is positioned over a visible skin lesion and a linear marker is used to indicate a scar. A triangular marker is placed on a self reported palpable finding. Note: Mammography does not detect approximately 10-15% of breast cancers. An annual clinical breast exam by the patient's breast care physician and regular monthly self breast exams by the patient are integral parts of breast cancer screening, in addition to annual mammography. A normal mammogram does not completely exclude the presence of breast cancer, especially if there is an abnormal finding on physical exam. When clinically indicated, a biopsy should not be deferred because of a normal mammogram report. Narrative 08/30/2024 1:14 PM EDT PROCEDURE: Digital screening mammogram with Digital Breast Tomosynthesis (DBT). REASON FOR EXAM: Routine screening. FAMILY HISTORY: Strong family history of breast cancer. Personal history of right lumpectomy. COMPARISON STUDY: 2023 through 2019 from [facility] FINDINGS: Craniocaudal and mediolateral oblique images of both breasts were obtained in 2D and DBT modes. Synthesized views were reconstructed from DBT data. Breast parenchymal density: The breasts are heterogeneously dense, which may obscure small masses. Surgical changes are stable. There is no evidence of dominant mass, architectural distortion, or suspicious calcifications. The mammogram was interpreted with the benefit of computer aided detection (CAD). Artemio Jules MD IM MAMMOGRAPHY ORDERABLES Final Result from Last 3 Months or Most Recently Relevant to Health Maintenance Insurance BLUE CROSS/BLUE SHIELD [facility] Care Teams Supervisor Wood Crew Relationship Specialty Start Date End Date Artemio Jules MD [address] [place] [id number] PCP - General Emergency Medicine 07/31/23
--- OUTSIDE RECORDS SUMMARY | 2025-02-14 23:17 | XMS_ITS | Encounter Summary ---
Author Organization [employer] ([place], [place], [place], [place]) Address [address] [place] [address] Care Team Providers Care Baker Apprentice Name Role Phone Artemio Jules MD Primary Care Provider [phone] Encounter Details Date Type Department Care Team (Late st Contact Info) Description 01/31/2020 Transcribed Document [facility] Family Medicine [address] [place] [address] ProviderHemal MD [address], [place] [id number] Social History Tobacco Use Types Packs/Day Years Used Date Smoking Tobacco: Never Assessed Comments Unknown Sex and Gender Information Value Date Recorded Sex Assigned at Not on file Legal Sex Female 3:21 PM CDT Gender Identity Not on file Sexual Orientation Not on file documented as of this encounter Miscellaneous Notes * Cerner Conversion Note - Historical ProviderMD - 01/31/2020 7:09 PM CDT [place] Suicide Severity Rating Scale (C-SSRS) Entered On: 01/31/2020 19:25 EDT Performed On: 01/31/2020 19:24 EDT by HANS VALLES RN [place] Suicide Severity Rating Scale (C-SSRS) CSSRS Past Month Wish to be : No CSSRS Past Month Suicidal Thoughts : No CSSRS Lifetime Suicide Behavior : No Suicide Severity Rating Score : 0 Suicide Severity Rating : No Additional Care Required at this time HANS VALLES RN - 01/31/2020 19:24 EDT Electronically signed by Silver Gibbs Conversion Business Continuity Planning Director Cerner at 10/06/2022 5:53 PM CDT documented in this encounter Plan of Treatment Upcoming Encounters Date Type Department Care Team (Late st Contact Info) Description 07/28/2025 2:00 PM EST Office Visit [facility] [address] [place] [id number] Austin Kirby MD [address] [place] [address] 09/03/2025 4:15 PM EDT Appointment [facility] [address] [place] [address] documented as of this encounter Visit Diagnoses Not on filedocumented in this encounter Care Teams Baker Apprentice Relationship Specialty Start Date End Date Artemio Jules MD [address] [place] [address] PCP - General Emergency Medicine 07/31/23 documented as of this encounter
--- OUTSIDE RECORDS SUMMARY | 2025-02-14 23:17 | XMS_ITS | Clinical Summary ---
Author Organization [employer] ([place], [place], [place], [place]) Address [address] [place] [address] Care Team Providers Care Harness Cleaner Name Role Phone Artemio Jules MD Primary Care Provider [phone] Allergies Active Allergy Reactions Criticality Noted Date [...] stage from 07/20/2001: cT1c, cN0, cM0, ER-, NE-, HER2- - Unsigned Family History Medical History Relation Name Comments Breast cancer Daughter Breast cancer Maternal Aunt Colon cancer Maternal Grandmother Ovarian cancer Neg Hx Relation Name Status Comments Daughter Father Maternal Aunt Maternal Grandmother Social History Tobacco Use Types Packs/Day Years [...] Date Emil rded Speak language other than Japanese at home Not on file 06/30/2023 Want [...] Description 07/28/2025 2:00 PM EST Office Visit [facility] [address] [place] [address] Austin Kirby MD [address] [place] [address] [place] [address] 09/03/2025 4:15 PM EDT Appointment [address] [place] [address] Health Maintenance Due Date Last Done Comments CT Colonography 1956 Colonoscopy 1956 Colorectal Cancer Screening 1956 DXA SCAN 1956 FOBT/FIT 1956 Fit-DNA (Cologuard) 1956 Sigmoidoscopy 1956 Depression Screening (12+) 1968 Hepatitis C Screening 1974 Pneumococcal 50+ years (1 of 1 - PCV) 2006 Shingles Vaccine (Zoster) (1 of 2) 2006 DTAP/TDAP/TD VACCINES (2 - T d or Tdap) 10/11/2007 10/10/1997 COVID-19 VACCINE (2023-2 5 season) 2024 05/25/2021, 11/06/2020, 10/09/2020 Falls Risk Screening 06/19/2024 Influenza Vaccine (#1) 2025 04/11/2022 Tobacco Cessation Counseling and Screening (12+) 07/29/2025 07/29/2024 Breast Cancer Screening 08/30/2026 08/31/19 25, 07/31/2023, 07/20/2022, Additional history exists Respiratory Syncytial Virus (RSV) Adult or (1 - 1-dose 75+ series) 2031 Procedures Procedure Name Priority Date/Time Associated Diagnosis [...] the next mammogram. At our facility, a bishop paiute marker is positioned over a visible skin [...] lumpectomy. [facility] FINDINGS: Craniocaudal and mediolateral oblique images of [...] computer aided detection (CAD). Artemio Jules MD IMG MAMMOGRAPHY ORDERABLES Final Result from Last 3 Months or Most Recently Relevant to Health Maintenance Insurance BLUE CROSS/BLUE SHIELD [employer] MAP Member Subscriber Plan / Payer (Ef fective 2024-Present) Name:Harriet Norton Relation to Subscriber:Self Name:Harriet Norton Payer ID:[id number] Group ID:[id number] Type:Not on file Address: [address] [place] [phone] Care Teams Harness Cleaner Relationship Specialty Start Date End Date Artemio Jules MD [address] [place] [phone] PCP - General Emergency Medicine 07/31/23
--- OUTSIDE RECORDS SUMMARY | 2025-02-14 23:17 | XMS_ITS | Encounter Summary ---
Author Organization Healthcare Address [address] [place] [address] Care Team Providers Care Outside Cutter Hand Name Role Phone Artemio Jules MD Primary Care Provider [phone] Encounter Details Date Type Department Care Team (Late st Contact Info) Description 02/08/2025 Orders Only External Location [address] [place] [address] Provider, External Social History Tobacco Use Types Packs/Day Years [...] place to sleep or slept in a half-way (including now)? No 03/21/2024 CAGE ASSESSMENT Answer [...] drink first t annabel in the morning (EYE-IT SECURITY SPECIALIST) to steady your nerves or to get [...] as of this encounter Functional Status * Calculated C-SSRS Risk Score (Lifetime/Recent) Answer Date of Assessment Author No Risk Indicated 02/08/2025 1:15 PM EDT Giacomo Andrea, RN * Question Answer Date of Assessment Author 1. Wish to be (Past 1 Month) No 02/08/2025 1:15 PM EDT Heraclio Cisse, RN 2. Non-Specific Active Suici ricky Thoughts (Past 1 Month) No 02/08/2025 1:15 PM EDT Jose Cisse, GEORGI 6. Suicidal Behavior (Lifetime) No 1:15 PM EDT Giacomo Cisse, RN documented as of this encounter Plan of Treatment Upcoming Encounters Date Type Department Care Team (Late st Contact Info) Description 09/19/2025 3:30 PM EDT Ovarian Cancer Screening [facility] Gynecology [address] [facility] [place] [address] documented as of this encounter Procedures Procedure Name Priority Date/Time Associated Diagnosis Comments POC ULTRASOUND 02/08/2025 documented in this encounter Results * POC Imaging (02/08/2025) Anatomical Region Laterality Modality Pelvis Other 02/08/2025 us External Provider IMG POINT OF CARE ULTRASOUND F inal Result documented in this encounter Visit Diagnoses Not on filedocumented in this encounter Additional Health Concerns Assessment Noted Time A fall risk assessment has been complete d for the patient 01/02/2025 8:37 AM EDT A Body Mass Index follow-up plan has been documented for the patient 01/02/2025 12:35 PM EDT documented as of this encounter Care Teams Outside Cutter Hand Relationship Specialty Start Date End Date Artemio Jules MD [address] [place] [address] PCP - General 09/19/22 documented as of this encounter
--- OUTSIDE RECORDS SUMMARY | 2025-02-14 23:17 | XMS_ITS | Clinical Summary ---
Author Organization [facility] Address [address] [place] [address] Care Team Providers Care Production Staff Worker Name Role Phone Artemio Jules MD Primary Care Provider Allergies Active Allergy Reactions Criticality Noted Date Comments Sulfamethoxazole-Trimethopri m Rash Low 03/11/2024 Cephalexin Rash,Unknown - Patie nt states they do not know rxn details Low 02/04/2019 Codeine Hives Medium 08/05/2022 Hydrocodone Rash Low 02/04/2019 Lidocaine Rash Low 02/29/2024 Procaine Rash Low 02/29/2024 Medications albuterol (Proventil) (2.5 MG/3ML) 0.083% nebulizer solution Take 3 mL (2.5 mg) by nebulization every 4 (four) hours if needed for shortness of breath. Active albuterol 108 (90 Base) MCG/ACT inhaler Inhale 2 puffs every 4 (four) hours if needed. Active atorvastatin (Lipitor) 80 MG tablet Take 1 tablet (80 mg) by mouth 1 (one) time each day. Active Breztri Aerosphere 160-9-4.8 MCG/ACT aerosol Inhale 2 puffs twice a day. Active carvedilol (Coreg) 3.125 MG tablet Take 1 tablet (3.125 mg) by mouth 2 (two) times a day. Active Jardiance 25 MG Take 1 tablet (25 mg) by mouth 1 (one) time each day. Active omeprazole (PriLOSEC) [address] capsule Take 1 capsule (40 mg) by mouth 2 (two) times a day. Active spironolactone (Aldactone) 25 MG tablet Take 1 tablet (25 mg) by mouth 1 (one) time each day. Active torsemide (Demadex) 20 MG tablet Take 1 tablet (20 mg) by mouth 1 (one) time each day. Active triamcinolone (Kenalog) 0.1 % cream Apply 1 Application topically 2 (two) times a day if needed for rash. Active Potassium 99 MG tablet Take 1 tablet by mouth 1 (one) time each day. Active cholecalciferol (Vitamin D-3) 25 MCG (1000 UT) tablet Take 1 tablet (1,000 Units) by mouth 1 (one) time each day. Active zinc gluconate 50 MG tablet Take 1 tablet (50 mg) by mouth 1 (one) time each day. Active niacin 100 MG tablet Take 1 tablet (100 mg) by mouth 1 (one) time each day with breakfast. Active coenzyme Q-10 100 MG capsule Take 1 capsule (100 mg) by mouth 1 (one) time each day. Active butalbital-acetami nophen-caffeine 50-325-40 MG tablet Take 2 tablets by mouth every 4 (four) hours if needed for headaches. 60 tablet 03/24/20 24 Active dexamethasone (Decadron) 4 MG tablet Take 1 tablet (4 mg) by mouth 4 (four) times a day for 3 days, THEN 1 tablet (4 mg) 3 (three) times a day for 3 days, THEN 1 tablet (4 mg) 2 (two) times a day for 3 days, THEN 0.5 tablets (2 mg) 2 (two) times a day for 4 days. 31 tablet 03/24/20 24 Active senna-docusate (Arielle-Colace) 8.6-50 MG tablet Take 2 tablets by mouth 2 (two) times a day. 60 tablet 03/24/20 24 Active polyethylene glycol (Miralax) 17 g packet Take 17 g by mouth 2 (two) times a day. 30 packet 03/24/20 24 Active ondansetron ODT (Zofran-ODT) 4 MG disintegrating tablet Take 1 tablet (4 mg) by mouth every 6 (six) hours if needed for nausea or vomiting. 20 tablet 03/24/20 24 Active lidocaine (Lidoderm) 5 % patch Apply 1 patch topically 1 (one) time each day at the same time over 12 hours. Remove & discard patch within 12 hours or as directed by MD. 4 patch 03/24/20 24 Active cyclobenzaprine (Flexeril) 10 MG tablet Take 1 tablet (10 mg) by mouth 3 (three) times a day. 30 tablet 03/24/20 24 Active gabapentin (Neurontin) 400 MG capsule Take 1 capsule (400 mg) by mouth 4 (four) times a day. 60 capsule 03/24/20 24 Active naloxone (Narcan) 4 mg/0.1 mL nasal spray 1. Give 1 spray in nostril for no/slow breathing or cannot wake after opioid use 2. Call 911 3. Repeat in other nostril if symptoms continue 1 each 03/24/20 24 Active meclizine (Antivert) 25 MG tablet Take 1 tablet (25 mg) by mouth 3 (three) times a day if needed for dizziness. 30 tablet 05/02/20 24 Active doxycycline (Adoxa) 100 MG tabletIndications: Insect bite of right lower leg, initial encounter Take 1 tablet by mouth 2 times a day for 7 days. 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 Encounters Date Type Department Care Team Description 02/08/2025 12:54 PM EDT - 02/08/2025 2:50 PM EDT Emergency [facility] Emergency Department [address] [place] [address] Cade Rice MD Insect bite of right lower leg, initial encounter (Primary Dx) Discharge Disposition: Home or Self Care 02/08/2025 Orders Only External Location [address] [place] [address] Provider, External 02/08/2025 Travel 01/02/2025 8:30 AM EDT Office Visit [facility] [address], [address] [place] [address] Toni Stone MD Meningioma ([facility]/HCC) (Primary Dx) 01/02/2025 Travel 12/30/2024 9:00 AM EDT Office Visit [facility] [address] [place] [address] Toni Stone MD Meningioma ([facility]/HCC) (Primary Dx) 12/30/2024 Travel from Last 3 Months Family History Medical History Relation Name Comments Anesthesia problems Neg Hx Malig Hyperthermia Neg Hx Social History Tobacco Use Types Packs/Day Years Used Date Smoking Tobacco: Never Smokeless Tobacco: Never Tobacco Cessation:Counseling Given: [...] place to sleep or slept in a usp (including now)? No 03/21/2024 CAGE ASSESSMENT Answer [...] drink first t annabel in the morning (EYE-CENTRAL CONTROL ROOM OPERATOR) to steady your nerves or to get [...] EDT Inhaled Oxygen Concentration - - Weight 89.4 kg (197 lb) 01/02/2025 8:30 AM EDT Height 152.4 cm (5') 01/02/2025 8:30 AM EDT Body Mass Index 38.47 01/02/2025 8:30 AM EDT Plan of Treatment Upcoming Encounters Date Type Department Care Team (Late st Contact Info) Description 09/19/2025 3:30 PM EDT Ovarian Cancer Screening [facility] Gynecology [address] [facility]rd [place] [address] Health Maintenance Due Date Last Done Comments [facility]-Bone Density Scan 1955 [facility]-Infant/Child/Adol SDOH Screenings 1955 Diabetes: Dental Exam 1966 [facility]-Pneumococcal Vaccine: 50+ Years (1 of 2 - PCV) 1975 [facility]-DTaP,Tdap,and Td Vaccines (1 - Tdap) 10/11/1997 10/10/1997 CT Colonography 2001 Colonoscopy 2001 FIT-DNA 2001 FIT 2001 FOBT 2001 Sigmoidoscopy 2001 [facility]-Colorectal Cancer Screening 2001 [facility]-Zoster Vaccines (1 of 2) 2006 [facility]-Medicare Annual Wellness (AWV) 07/26/2023 07/26/2022 [id number] Vaccine ( season) 2024 05/25/2021, 11/06/2020, 10/09/2020 [facility]- SDOH Screenings 09/19/2024 [facility]-Adult SDOH Screenings 09/19/2024 03/21/2024 [facility]-Diabetes: Hemoglobin A1C 11/04/2024 05/07/2024, 10/08/2023 [facility]-Influenza Vaccine (#1) 02/17/202505/20, 04/11/2022, 04/23/2020, Additional history exists [facility]-Depression Screening 04/04/2025 04/04/2024 [facility]-Breast Cancer Screening 08/30/202608/17, 08/30/2024, 07/31/2023, Additional history exists [facility]-RSV Vaccine: 60+ Years or (1 - 1-dose 75+ series) 2031 [facility]-Obesity Intervention Completed 025, 12/30/2024, 10/10/2024, Additional history exists [facility]-Hepatitis C Screening Completed 02/08/2025, HPV Vaccines Aged Out No longer eligi ble based on patient's age to complete this topic [facility]-HIB Vaccines Aged Out No longer e ligible based on patient's age to complete this topic [facility]-Hepatitis A Vaccines Aged Out No longer eligible based on patient's age to complete this topic [facility]-IPV Vaccines Aged Out No longer e ligible based on patient's age to complete this topic [facility]-Rotavirus Vaccines Aged Out No lo nger eligible based on patient's age to complete this topic Medical Devices Implanted Type Area Cartographic Drafter Device Identifier Shelf Expiration Date Model / Serial / Lot Graft Dura Repair 2x2 Synthecel - [id number] Implanted:Qty: 1 on 03/20/2024 by Toni Stone MD at [facility] Right: Brain [employer] [facility]-[id number] 06/18/2026 [id number] / / [id number] Screw Ti Matrixneuro Selfdrill 4mm - S. - [id number] Implanted:Qty: 15 on 03/20/2024 by Toni Stone MD at [facility] [employer] [facility]-[id number] 03/20/2025 [id number] .[id number] / . / Mesh Matrix Arc Large - S. - [id number] Implanted:Qty: 1 on 03/20/2024 by Toni Stone MD at [facility] [employer] [facility]-[id number] 03/20/2025 [id number] / . / Plate, 2 Hole Low Profile - S. - [id number] Implanted:Qty: 1 on 03/20/2024 by Toni Stone MD at [facility] [employer] [facility]-[id number] 03/20/2025 [id number] / . / Procedures Procedure Name Priority Date/Time Associated Diagnosis [...] PANEL, PLASMA STAT 02/08/2025 12:53 PM EDT [facility] ED POCUS PROCDOC Routine 02/08/2025 12:09 PM EDT POC ULTRASOUND 02/08/2025 from Last 3 Months Results * Blood Culture (Aerobic/Anaerobet Set) (02/08/2025 1:09 PM EDT) Culture No growth at day 5 02/13/2025 3:01 PM EDT [facility] Blood Structure of left hand / Unknown Venipuncture / Unknown 02/08/2025 1:09 PM EDT 02/08/2025 2:26 PM EDT us Cade Rice MD LAB MICROBIOLOGY - GENERAL OR DERABLES Final Result [facility] [address] [place] [address] * ED HIV 1/2 Antibody/Antigen Screen w/Reflex to HIV 1/2 Differentiation (02/08/2025 12:53 PM EDT) HIV 1 & 2 Antibody/Antigen Screen Non Reactive Non Reactive 02/08/2025 1:56 PM EDT [facility] Comment:Screening for HIV 1 & 2 antibodies, and P24 antigen is NONREACTIVE. No confirmatory testing is required. Blood Venous blood specimen / Unknown Venipuncture / Unknown 02/08/2025 12:53 PM EDT 02/08/2025 1:17 PM EDT us Cade Rice MD LAB BLOOD ORDERABLES Final Re sult Performing Organization Address [facility]/ZIP Co de Phone Number [facility] [address] [place] [address] * Hepatitis C Antibody - ED (02/08/2025 12:53 PM EDT) Pathologist [facility] Hepatitis C Antibody Negative Negative 02/08/2025 1:58 PM EDT [facility] Blood Venous blood specimen / Unknown Venipuncture / Unknown 02/08/2025 12:53 PM EDT 02/08/2025 1:17 PM EDT us Cade Rice MD LAB BLOOD ORDERABLES Final Re sult Performing Organization Address [facility] Co de Phone Number [facility] [address] [place] [address] * CBC w/diff (02/08/2025 12:53 PM EDT) Pathologist [facility] WBC Count 5.64 3.70 - 10.30 10*3/uL LAB HEMATOLOGY METHOD 02/08/2025 12:58 PM EDT [facility] RBC Count 4.40 3.90 - 5.20 10*6/uL LAB HEMATOLOGY METHOD 02/08/2025 12:58 PM EDT [facility] HGB 12.5 11.2 - 15.7 g/dL LAB HEMATOLOGY METHOD 02/08/2025 12:58 PM EDT [facility] HCT 36.8 34.0 - 45.0 % LAB HEMATOLOGY METHOD 02/08/2025 12:58 PM EDT [facility] Platelet Count 254 155 - 369 10*3/uL LAB HEMATOLOGY METHOD 02/08/2025 12:58 PM EDT [facility] MCV 84 79 - 98 fL LAB HEMATOLOGY METHOD 02/08/2025 12:58 PM EDT [facility] MCH 28.4 26.0 - 32.0 pg LAB HEMATOLOGY METHOD 02/08/2025 12:58 PM EDT [facility] MCHC 34.0 30.7 - 35.5 g/dL LAB HEMATOLOGY METHOD 02/08/2025 12:58 PM EDT [facility] RDW 14.4 11.5 - 14.5 % LAB HEMATOLOGY METHOD 02/08/2025 12:58 PM EDT [facility] MPV 9.3 8.8 - 12.5 fL LAB HEMATOLOGY METHOD 02/08/2025 12:58 PM EDT [facility] nRBC 0.0 <=0.0 per 100 WBCs LAB HEMATOLOGY METHOD 02/08/2025 12:58 PM EDT [facility] Differential Type Automated LAB HEMATOLOGY METHOD 02/08/2025 12:58 PM EDT [facility] Neutrophils % 59 % LAB HEMATOLOGY METHOD 02/08/2025 12:58 PM EDT [facility] Lymphocytes % 32 % LAB HEMATOLOGY METHOD 02/08/2025 12:58 PM EDT [facility] Monocytes % 7 % LAB HEMATOLOGY METHOD 02/08/2025 12:58 PM EDT [facility] Eosinophils % 2 % LAB HEMATOLOGY METHOD 02/08/2025 12:58 PM EDT [facility] Basophils % 0 % LAB HEMATOLOGY METHOD 02/08/2025 12:58 PM EDT [facility] Immature Granulocytes % 0 % LAB HEMATOLOGY METHOD 02/08/2025 12:58 PM EDT [facility] Neutrophils Absolute 3.29 1.60 - 6.10 10*3/uL LAB HEMATOLOGY METHOD 02/08/2025 12:58 PM EDT [facility] Lymphocytes Absolute 1.82 1.20 - 3.90 10*3/uL LAB HEMATOLOGY METHOD 02/08/2025 12:58 PM EDT [facility] Monocytes Absolute 0.40 0.30 - 0.90 10*3/uL LAB HEMATOLOGY METHOD 02/08/2025 12:58 PM EDT [facility] Eosinophils Absolute 0.09 0.00 - 0.50 10*3/uL LAB HEMATOLOGY METHOD 02/08/2025 12:58 PM EDT [facility] Basophils Absolute 0.02 0.00 - 0.10 10*3/uL LAB HEMATOLOGY METHOD 02/08/2025 12:58 PM EDT [facility] Immature Granulocytes Absolute 0.02 0.00 - 0.06 10*3/uL LAB HEMATOLOGY METHOD 02/08/2025 12:58 PM EDT [facility] Blood Venous blood specimen / Unknown Venipuncture / Unknown 02/08/2025 12:53 PM EDT 02/08/2025 12:56 PM EDT Narrative [facility] - 02/08/2025 12:58 PM EDT Therapeutic decision making should be based on absolute values, rather than percentages. us Cade Rice MD LAB BLOOD ORDERABLES Final Re sult [facility] [address] [place] [address] * (ABNORMAL) CMP (02/08/2025 12:53 PM EDT) Glucose, Plasma 109(H) 74 - 99 mg/dL 02/08/2025 1:16 PM EDT [facility] BUN, Plasma 16 8 - 23 mg/dL 02/08/2025 1:16 PM EDT [facility] Creatinine, Plasma 0.78 0.60 - 1.10 mg/dL 02/08/2025 1:16 PM EDT [facility] BUN/Creatinine Ratio 21 02/08/2025 1:16 PM EDT [facility] Sodium, Plasma 142 136 - 145 mmol/L 02/08/2025 1:16 PM EDT [facility] Potassium, Plasma 4.5 3.6 - 4.9 mmol/L 02/08/2025 1:16 PM EDT [facility] Chloride, Plasma 106 97 - 107 mmol/L 02/08/2025 1:16 PM EDT [facility] CO2, Plasma 26 22 - 29 mmol/L 02/08/2025 1:16 PM EDT [facility] Anion Gap 10 6 - 16 mmol/L 02/08/2025 1:16 PM EDT [facility] Total Calcium, Plasma 9.6 8.9 - 10.2 mg/dL 02/08/2025 1:16 PM EDT [facility] Total Protein 7.8 6.3 - 7.9 g/dL 02/08/2025 1:16 PM EDT [facility] Albumin, Plasma 4.3 3.5 - 5.2 g/dL 02/08/2025 1:16 PM EDT [facility] AST, Plasma 27 10 - 35 U/L 02/08/2025 1:16 PM EDT [facility] Comment:Hemolyzed, result ma y be falsely increased. ALT, Plasma 28 10 - 35 U/L 02/08/2025 1:16 PM EDT [facility] Alkaline Phosphatase, Plasma 170(H) 46 - 142 U/L 02/08/2025 1:16 PM EDT [facility] Total Bilirubin, Plasma 0.4 0.2 - 1.1 mg/dL 02/08/2025 1:16 PM EDT [facility] eGFRcr 82.9 mL/min/1.7 3m*2 02/08/2025 1:16 PM EDT [facility] Comment:Reported eGFRcr in m L/min/1.73m2 is based the CKD-EPI 2020 equation that does not use a race coefficient. Blood Venous blood specimen / Unknown Venipuncture / Unknown 02/08/2025 12:53 PM EDT 02/08/2025 12:56 PM EDT us Cade Rice MD LAB BLOOD ORDERABLES Final Re sult [facility] [address] [place] [address] * [facility] ED POCUS PROCDOC (02/08/2025 12:09 PM [...] Rice MD IN CLINIC/BEDSIDE ORDERABLES Final Result * POC Imaging (02/08/2025) Anatomical Region Laterality Modality Pelvis Other 02/08/2025 us External Provider IMG POINT OF CARE ULTRASOUND F inal Result from Last 3 Months Insurance [employer] MEDICARE [facility] Advance Directives * Full Code (Latest Code Status on File) Date Activated Date Inactivated Comments 03/20/2024 3:35 PM 03/24/2024 6:24 PM Question Answer Comments Patient has decision-making capacity? Yes Care Teams Production Staff Worker Relationship Specialty Start Date End Date Artemio Jules MD [address] [place], [place] [id number] PCP - General 09/19/22
--- OUTSIDE RECORDS SUMMARY | 2025-02-14 23:17 | XMS_ITS | Encounter Summary ---
Author Organization Healthcare Address [address] 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) to steady your nerves or to get [...] [facility] [address] [place] [address] documented as of this encounter Visit Diagnoses Not on filedocumented in this encounter Additional Health Concerns Assessment Noted Time A fall risk assessment has been complete d for the patient 01/02/2025 8:37 AM EDT A Body Mass Index follow-up plan has been documented for the patient 01/02/2025 12:35 PM EDT documented as of this encounter Care Teams Supervisor Lump Room Relationship Specialty Start Date End Date Artemio Jules MD [address] [place] [address] PCP - General 09/19/22 documented as of this encounter
--- OUTSIDE RECORDS SUMMARY | 2025-02-14 23:17 | XMS_ITS | Encounter Summary ---
Author Organization [employer] ([place], [place], [place], [place]) Address [address] [place] [address] Care Team Providers Care Pesticide Control Inspector Name Role Phone Artemio Jules MD Primary Care Provider [phone] Encounter Details Date Type Department Care Team (Late st Contact Info) Description 04/01/2021 Transcribed Document [facility] [place] [address] Hemal More MD [address] [place], [place] [id number] Social History Tobacco Use Types Packs/Day Years Used Date Smoking Tobacco: Never Assessed Comments Unknown Sex and Gender Information Value Date Recorded Sex Assigned at Not on file Legal Sex Female 3:21 PM CDT Gender Identity Not on file Sexual Orientation Not on file documented as of this encounter Miscellaneous Notes * Cerner Conversion Note - Historical ProviderMD - 04/01/2021 1:20 PM CDT DATE OF SERVICE: 04/01/2021 LEFT HEART CATHETERIZATION REPORT INDICATION: Chest pain, inferior apical hypokinesia by exercise stress echo. ADDITIONAL REFERRING PHYSICIAN: Dr. Jules. PROCEDURE: Standard left heart catheterization technique. A 5/6-Estonian sheath was placed in the right radial artery. Toney catheter was used for selective angiography of left and right coronary arteries and obtaining pressures in the left ventricle. Left ventriculogram was not performed. Following the diagnostic catheterization, the radial artery sheath was removed and the access site successfully compressed using a TR band. No complications. The patient received moderate conscious sedation for the procedure including intravenous Versed and fentanyl. She was monitored for more than 30 minutes and remained stable hemodynamically without respiratory distress. HEMODYNAMICS: Left ventricle 120/10 mmHg, aorta 120/60 mmHg. DIAGNOSES: 1. Coronary artery luminal irregularities. 2. Normal left ventricular filling pressure without gradient across the aortic valve. CORONARY ANATOMY: 1. Left main trunk: Angiographically normal. 2. LAD: Large caliber vessel, which gives rise to several small caliber diagonal branches before extending beyond the apex. Luminal irregularities are present in the LAD and diagonal branches. 3. Circumflex artery: Moderate caliber vessel, which gives rise to a small caliber high lateral branch, moderate caliber lateral branch, small caliber posterolateral branch. There is tortuosity but otherwise luminal irregularities present in the circumflex artery. 4. Right coronary artery: Dominant vessel. Moderate caliber vessel, which gives rise to a small caliber posterior descending artery, small caliber posterolateral branch. Luminal irregularities present in the right coronary artery. 5. Left ventricle: Normal left ventricular filling pressure without gradient across the aortic valve. IMPRESSION: Angiographically, the patient has mild coronary artery atherosclerosis. There is no indication for revascularization. RECOMMENDATIONS: Risk factor modification, medical management, especially weight reduction is recommended. /[id number] Ashok Cardenas MD SSL/AQ / SSL / MODL /[id number] CC: MD Dr. Jorge A Seo Electronically signed by [facility] Conversion Invertebrate Paleontologist Cerner at 10/06/2022 6:15 PM CDT documented in this encounter Plan of Treatment Upcoming Encounters Date Type Department Care Team (Late st Contact Info) Description 07/28/2025 2:00 PM EST Office Visit [facility] [address] [facility] [address] [place] [address] Austin Kirby MD [address] [place] [address] 09/03/2025 4:15 PM EDT Appointment [address] [place] [address] documented as of this encounter Visit Diagnoses Not on filedocumented in this encounter Care Teams Pesticide Control Inspector Relationship Specialty Start Date End Date Artemio Jules MD [address] [place] [id number] PCP - General Emergency Medicine 07/31/23 documented as of this encounter
--- OUTSIDE RECORDS SUMMARY | 2025-02-14 23:17 | XMS_ITS | Encounter Summary ---
Author Organization [employer] ([place], [place], [place], [place]) Address [address] [place] [address] Care Team Providers Care Inspector Plug Seam Name Role Phone Artemio Jules MD Primary Care Provider [phone] Encounter Details Date Type Department Care Team (Late st Contact Info) Description 04/01/2021 Transcribed Document [facility] Family Medicine [address] [place] [address] ProviderHemal MD [address], [place] [id number] Social History Tobacco Use Types Packs/Day Years Used Date Smoking Tobacco: Never Assessed Comments Unknown Sex and Gender Information Value Date Recorded Sex Assigned at Not on file Legal Sex Female 3:21 PM CDT Gender Identity Not on file Sexual Orientation Not on file documented as of this encounter Miscellaneous Notes * Cerner Conversion Note - Historical ProviderMD - 04/01/2021 11:57 AM CDT Pre Procedure Adult Entered On: 04/01/2021 12:03 EDT Performed On: 04/01/2021 11:57 EDT by Julieta Melo RN Height and Weight, Clinical Dosing Height Source : Stated Height Entry Format : [place] Height, Feet : 5 ft(Converted to: 152 cm, 60 Inch) Height, Inches : 0 Inch(Converted to: 0 ft 0 Inch, 0.00 cm) Clinical Height : 152.4 cm Weight Source : Standing scale Weight Entry Format : [place] Clinical Dosing Weight : 90.45 kg Weight, Pounds : 199 lb Body Surface Area (BSA) : 1.86 m2 Body Mass Index : 38.9 kg/m2 (HI) [place] Body Weight : 45 kg Julieta Melo RN - 04/01/2021 11:57 EDT Health Histories Smoking Status : Never (less than 100 in lifetime; none in last 30 days) Smokeless Tobacco Status : Never Julieta Melo RN - 04/01/2021 11:57 EDT Social History (As Of: 04/01/2021 12:03:06 EDT) Tobacco: Never (less than 100 in lifetime) Smoking Status. Never Smokeless Tobacco Status. (Last Updated: 01/31/2020 19:25:17 EDT by HANS VALLES RN) Alcohol: Alcohol Use History No. (Last Updated: 01/31/2020 19:25:20 EDT by HANS VALLES RN) Substance Abuse: Drug Use Hx: No. Use in Last 12 Months: No. (Last Updated: 01/31/2020 19:25:23 EDT by HANS VALLES RN) Home/Environment: Living situation: Home/Independent. (Last Updated: 08/31/2019 08:20:49 EDT by JUAN CARLOS BROCK PA-C) Employment/School: Employed (Last Updated: 08/31/2019 08:20:58 EDT by JUAN CARLOS BROCK PA-C) Infectious Disease History Does patient have symptoms of COVID-19? : No Has the Patient Been Tested for COVID-19 in the last 14 days? : Yes, Patient stated results Negative Does the Patient state known exposure to a COVID-19 positive case in the last 14 days? : No Patient Vaccinated for COVID-19 : Fully vaccinated Julieta Melo RN - 04/01/2021 11:57 EDT Infectious Disease Risk Screening Grid Cough < 2 wks of unknown origin : NO Cough > 2 weeks : NO Blood in Sputum : NO Fever or self-reported Fever : NO Rash of unknown origin : NO Headache : NO Stiff neck : NO Night Sweats : NO Unexplained Weight Loss : NO Diarrhea (3 episode per day) : NO Julieta Melo RN - 04/01/2021 11:57 EDT Physical contact outside [place] in the last 30 days : No Hospitalized in Foreign Country : No Infectious Disease History : Influenza, Measles, Mumps INF Disease TB Screening Calc : 0 INF Disease Recent Travel Calc : 0 Julieta Melo RN - 04/01/2021 11:57 EDT COVID19 PreProcedure Screening Is this an Emergent or Add on Procedure? : No Date PreProcedure COVID-19 test known? : Yes Date of PreProcedure COVID-19 : 03/31/2021 EDT Has patient been isolated since the test : Yes Exposed to COVID19 symptoms since test? : No Julieta Melo RN - 04/01/2021 11:57 EDT Anesthesia/Transfusion History Family History of Anesthesia Reaction : No prior transfusion(s) Blood Transfusion Acceptable to Patient : Yes Transfusion History : Prior anesthesia without reaction Family History of Anesthesia Reaction : None Julieta Melo RN - 04/01/2021 11:57 EDT Functional Assessment Living Situation : Home Current Home Treatments : None Julieta Melo RN - 04/01/2021 11:57 EDT [place] Suicide Severity Rating Scale (C-SSRS) CSSRS Past Month Wish to be : No CSSRS Past Month Suicidal Thoughts : No CSSRS Lifetime Suicide Behavior : No Suicide Severity Rating Score : 0 Suicide Severity Rating : No Additional Care Required at this time Julieta Melo RN - 04/01/2021 11:57 EDT Psychosocial History Currently in Unsafe Situation : No Julieta Melo RN - 04/01/2021 11:57 EDT Advance Directive Patient has Advance Directive *Q : No, patient refuses Advance Directive information Julieta Melo RN - 04/01/2021 11:57 EDT Teaching/Learning Assessment Barriers To Learning : None evident Julieta Melo RN - 04/01/2021 11:57 EDT Education Topics, Periop Preadmission Perioperative Education Grid Arrival Time/Place : Verbalizes understanding CAUTI : Verbalizes understanding Central Lines : Verbalizes understanding CHG Preoperative Bathing/Cloths : Verbalizes understanding Falls : Verbalizes understanding Incentive Spirometry : Verbalizes understanding Infection Control : Verbalizes understanding IV's : Verbalizes understanding NPO Status/Directions : Verbalizes understanding Pain Management : Verbalizes understanding Postoperative Care Preparations : Verbalizes understanding Preprocedure Preparations : Verbalizes understanding Preprocedure Tests/Labs : Verbalizes understanding Remove Body Piercings : Verbalizes understanding Responsible Adult : Verbalizes understanding SNE's : Verbalizes understanding Take/Hold Medications Pre-Procedure : Verbalizes understanding Other : Verbalizes understanding Julieta Melo RN - 04/01/2021 11:57 EDT General Info Support Person/Pt Rep Name : sidney Support Person/Pt Rep Contact Information : [id number] Want Family/Rep/Phys Notified of Admit : No Emergency Contact #1 : x Emergency Contact #1 Phone Number : x Emergency Contact #1 Relationship : x Emergency Contact #2 : x Emergency Contact #2 Phone Number : x Emergency Contact #2 Relationship : x Primary Language : Portuguese Preferred Communication Mode : Verbal Communication Barrier : None Julieta Melo RN - 04/01/2021 11:57 EDT Vital Measurements Temperature Source : Temporal artery scanning Temperature, Fahrenheit : 98.2 Deg F Clinical Temperature, C : 36.8 Deg C Heart Rate, Apical : 85 bpm Systolic Blood Pressure : 130 mmHg Diastolic Blood Pressure : 65 mmHg Julieta Melo RN - 04/01/2021 11:57 EDT Sleep Apnea Risk Assmt Hx of Obstructive Sleep Apnea Diagnosis : No Snore Loudly : No Tired, Fatigued, or Sleepy During Day : No Observed Stopping Breathing During Sleep : No Have/Are Being Treated for Hypertension : Yes BMI Greater Than 35 kg/m2 : Yes Age over 50 Years Old : Yes Neck Circumference Greater Than 40 cm : Yes Gender Male : No STOP-BANG Sleep Apnea Risk Level Score : 4 Julieta Melo RN - 04/01/2021 11:57 EDT Axel Scale Axel Sensory Perception : Slightly limited Axel Moisture : Rarely moist Axel Activity : Walks occasionally Axel Mobility : No limitation Axel Nutrition : Adequate Axel Friction and Shear : No apparent problem Axel Score : 20 Julieta Melo RN - 04/01/2021 11:57 EDT Pain Assessment Pain Assessment : Initial assessment Pain Scale Used : 0-10 Scale Julieta Melo RN - 04/01/2021 11:57 EDT Fall Risk Scales ABCs Fall Injury Risk Identification : Age, Bones, Coagulation ABC Fall Injury Risk : Moderate to high injury risk NUNO Hx Falls Immediate/Within 3 Months : No Nuno Secondary Diagnosis : Yes NUNO Use of Ambulatory Aid : Bed rest/Nurse assist NUNO IV Therapy or IV Access : Yes Nuno Gait/Transferring : Normal, bedrest, immobile Nuno Mental Status : Oriented to own ability Nuno Fall Risk Score : 35 NUNO Fall Scale Risk Level : 25-45 Medium Risk [place] Fall Interventions : Adequate lighting, Assistive devices within reach, Bed in low position, Call device within reach, Fall prevention handout/education per facility policy, Hourly comfort/safety rounds, Non-slip footwear Julieta Melo RN - 04/01/2021 11:57 EDT Education Topics, Day of Surgery DayofSurgery Education Grid Anesthesia/Sedation : Verbalizes understanding CAUTI : Verbalizes understanding Central Lines : Verbalizes understanding CHG Preoperative Bathing/Cloths : Verbalizes understanding Fall Risks : Verbalizes understanding Family Instructions : Verbalizes understanding Incentive Spirometry : Verbalizes understanding Infection Control : Verbalizes understanding Infection Risks : Verbalizes understanding IV's : Verbalizes understanding Medication Instructions : Verbalizes understanding Pain Management : Verbalizes understanding Plan of Care : Verbalizes understanding Respiratory Care : Verbalizes understanding Responsible Adult : Verbalizes understanding SNE's : Verbalizes understanding Tubes/Drains : Verbalizes understanding Other : Verbalizes understanding Julieta Melo RN - 04/01/2021 11:57 EDT Valuables and Belongings Valuables and Belongings : Clothing Clothing : Common streetwear Clothing Disposition : With patient Julieta Melo RN - 04/01/2021 11:57 EDT Pain Scale Intensity : 0 Julieta Melo RN - 04/01/2021 11:57 EDT Image 4 - Images currently included in the form version of this document have not been included in the text rendition version of the form. documented in this encounter Plan of Treatment Upcoming Encounters Date Type Department Care Team (Late st Contact Info) Description 07/28/2025 2:00 PM EST Office Visit [facility] [place] [id number] [facility] [address] [place] [address] Austin Kirby MD [address] [place] [address] 09/03/2025 4:15 PM EDT Appointment [address] [place] [address] documented as of this encounter Visit Diagnoses Not on filedocumented in this encounter Care Teams Inspector Plug Seam Relationship Specialty Start Date End Date Artemio Jules MD [address] [place] [id number] PCP - General Emergency Medicine 07/31/23 documented as of this encounter
--- OUTSIDE RECORDS SUMMARY | 2025-02-14 23:17 | XMS_ITS | Encounter Summary ---
Author Organization [employer] ([place], [place], [place], [place]) Address [address] [place] [address] Care Team Providers Care Freelance Photographer Name Role Phone Artemio Medina MD Primary Care Provider [phone] Encounter Details Date Type Department Care Team (Late st Contact Info) Description 04/01/2021 Transcribed Document [facility] Family Medicine [address] [place] [address] ProviderHemal MD [address] [place] [address] Social History Tobacco Use Types Packs/Day Years Used Date Smoking Tobacco: Never Assessed Comments Unknown Sex and Gender Information Value Date Recorded Sex Assigned at Not on file Legal Sex Female 3:21 PM CDT Gender Identity Not on file Sexual Orientation Not on file documented as of this encounter Miscellaneous Notes * Cerner Conversion Note - Hemal ProviderMD - 04/01/2021 3:09 PM CDT [facility] [address] [place] [id number] RIKA HERNANDEZ :1955 Visit Time:04/01/2021 Your Visit Summary Your Care Team Admitting Physician - SOLO TOWNSEND MD-CAR Attending Physician - SOLO TOWNSEND MD-CAR Primary Care Physician - ARTEMIO MEDINA(REF)ISAEL Referring Physician - SOLO TOWNSEND MD-CAR Your Diagnosis Abnormal result of other cardiovascular function study, Abnormal result of other cardiovascular function study These Are Your Goals No qualifying data available. Discharge Vitals Temperature 36.8 ??C Heart Rate (Monitored) 82 Respiratory Rate 14 Blood Pressure 115/55 What to do next Instructions From Your Care Team Diet after Discharge: Low Sodium Diet Heart Healthy Diet Activity after Discharge: Rest and relax today, No strenuous activity, No lifting more than 1 pound with affected hand for 48 hours. , _ Driving Restrictions: No driving for 24 hours. Showering/Bathing: You may remove the dressing in 24 hours and shower. , No tub bathing, soaking or swimming for 3-5 days until site is healed. Medications: No changes to your current home medications., _, _ Dressing Instructions: You can remove the dressing in 24 hours., _, _ Follow-Up Appointments Follow Up with EDILBERTO GUZMÁN When 04/14/2021 09:45 AM EDT Where: [address] [place] [id number] Business (1) Medications What How Much When Instructions Next Dose albuterol (Albuterol (Eqv-ProAir HFA) 90 mcg/ inh inhalation aerosol) aspirin (aspirin 81 mg oral capsule) Oral Every Day atorvastatin (atorvastatin 80 mg oral tablet) carvedilol (carvedilol 3.125 mg oral tablet) 1 Tablet(s) Oral Two Times A Day fluticasone/ umeclidinium/ vilanterol (Trelegy Ellipta 200 mcg-62.5 mcg-25 mcg/ inh inhalation powder) Inhalation Every Day montelukast (montelukast 10 mg oral tablet) Oral Every Day omeprazole (omeprazole 40 mg oral delayed release capsule) 1 Capsule(s) Oral Every Day before a meal torsemide (torsemide 20 mg oral tablet) Take your medications faithfully. Do NOT skip [...] Please dispose of unused and medications per your retail pharmacy guidance. Allergies cephalexin (trouble breathing, hives, hives~trouble breathing) novacaine (hives, hives) xylocaine (hives, hives) Immunizations This Visit No Immunizations Found Education Materials Radial Site Care This sheet gives you [...] these instructions at home: Medicines ??? Take mlce-ajq-slxpmeg and prescription medicines only as told by your health care provider. Insertion site care ??? Follow instructions from your health care provider about how to take care of your insertion site. Make sure you: ? Wash your hands with soap and water before you change your bandage (dressing). If soap and water are not available, use hand foreign service teacher. ? Change your dressing as told by [...] care provider approves. ??? You may shower 24???48 hours after the procedure, or as directed [...] provider. Document Revised: 07/11/2018 Document Reviewed: 07/11/2018 [employer] Patient Education ?? 2020 [place]. Heart-Healthy Eating Plan Heart-healthy meal planning includes: [...] plate with lean protein foods. ??? Eat 4???5 servings of vegetables per day. A serving of vegetables is: ? 1 cup of raw or cooked vegetables. ? 2 cups of raw leafy greens. ??? Eat 4???5 servings of fruit per day. A serving of fruit is: ? 1 medium whole fruit. ? ?? cup of dried fruit. ? ?? cup of fresh, frozen, or canned fruit. ? ?? cup of 100% fruit juice. ??? Eat more foods that have soluble fiber. These are apples, broccoli, carrots, beans, peas, and barley. Try to get 20???30 g of fiber per day. ??? Eat 4???5 servings of nuts, legumes, and seeds per week: ? 1 serving of dried beans or legumes equals ?? cup after being cooked. ? 1 serving of nuts is ?? cup. ? 1 serving of seeds equals [...] Fats and oils Meat fat, or shortening. [place] butter, hydrogenated oils, palm oil, coconut oil, [...] provider. Document Revised: 08/09/2018 Document Reviewed: 07/13/2018 [employer] Patient Education ?? [employer] Moderate Conscious Sedation, Adult, Care After This [...] you are awake and alert. ??? Take mbrb-byr-gxjzuve and prescription medicines only as told by [...] 04/30/2020 Document Reviewed: 04/30/2020 Elsevier Patient Education ?? 2020 [employer] Emergency Awareness and Preventative Care STROKE [...] Assistance with quitting is available by contacting 9-374-OXRENOW. This is a free resource providing counseling, support, and referral. Or you may contact your personal physician. [place] Suicide Prevention Lifeline: The National Suicide Prevention [...] CPR? There are two easy steps: Call --1 if you see a teen or adult [...] and how to prevent infections, visit www.cdc.gov/sepsis. Test Results Laboratory or Other Results This Visit (last charted value for your 04/01/2021 visit) Hematology 04/01/2021 11:35 AM Platelet Count: 279 K/uL -- Normal range between ( 163 and 369 ) Vascular Ultrasound 04/01/2021 12:55 PM VL Vascular Access: VL Vascular Access Patient Name:RIKA HERNANDEZ I have received and understand this information and was given the opportunity to ask questions. Patient/Publishing Editor Name: Patient/Publishing Editor Signature: Relationship to Patient: Clinician/Hospital Publishing Editor Signature: Date: documented in this encounter Plan of Treatment Upcoming Encounters Date Type Department Care Team (Late st Contact Info) Description 07/28/2025 2:00 PM EST Office Visit [facility] [address] [address] [facility] [address] [place] [address] Austin Kirby MD [address] [facility] [address] [place] [address] 09/03/2025 4:15 PM EDT Appointment [facility] [address] [place] [address] documented as of this encounter Visit Diagnoses Not on filedocumented in this encounter Care Teams Freelance Photographer Relationship Specialty Start Date End Date Artemio Medina MD [address] [place] [address] PCP - General Emergency Medicine 07/31/23 documented as of this encounter
--- OUTSIDE RECORDS SUMMARY | 2025-02-14 23:17 | XMS_ITS | Encounter Summary ---
Author Organization Healthcare Address [address] [place] [address] Care Team Providers Care Racing Driver Name Role Phone Artemio Jules MD Primary Care Provider [phone] Encounter Details Date Type Department Care Team [...] place to sleep or slept in a assisted (including now)? No 03/21/2024 CAGE ASSESSMENT Answer [...] drink first t annabel in the morning (EYE-ELECTRIC SHOVEL OPERATOR) to steady your nerves or to [...] No 02/08/2025 1:15 PM EDT Jose Cisse, RN 6. Suicidal Behavior (Lifetime) No 1:15 PM EDT Giacomo Cisse, RN documented as of this encounter Plan of Treatment Upcoming Encounters Date Type Department Care Team (Late st Contact Info) Description 09/19/2025 3:30 PM EDT Ovarian Cancer Screening [facility] Gynecology [address] [place] [address] documented as of this encounter Visit Diagnoses Not on filedocumented in this encounter Additional Health Concerns Assessment Noted Time A fall risk assessment has been complete d for the patient 01/02/2025 8:37 AM EDT A Body Mass Index follow-up plan has been documented for the patient 01/02/2025 12:35 PM EDT documented as of this encounter Care Teams Racing Driver Relationship Specialty Start Date End Date Artemio Jules MD [address] [place] [address] PCP - General 09/19/22 documented as of this encounter
--- NOTE | 2025-02-14 23:20 | CT_ITS ---
PROCEDURE INFORMATION: Exam: CT Abdomen And Pelvis With Contrast Exam date and time: 02/15/2025 1:48 AM Age: 69 years old Clinical indication: Abdominal pain; Epigastric; Additional info: Ruq pain TECHNIQUE: Imaging protocol: Computed tomography of the abdomen and pelvis with contrast. 3D rendering (Not supervised by radiologist): MIP and/or 3D reconstructed images were created by the technologist. Radiation optimization: All CT scans at this facility use at least one of these dose optimization techniques: automated exposure control; mA and/or kV adjustment per patient size (includes targeted exams where dose is matched to clinical indication); or iterative reconstruction. Contrast material: ISOVUE; Contrast volume: 80 ml; Contrast route: IV; COMPARISON: CT ABDOMEN PELVIS WO CON 05/27/2023 10:57 AM FINDINGS: Liver: Unremarkable. No mass. Gallbladder and biliary ducts: Contracted. No calculi. Pancreas: Unremarkable. No ductal dilation. Spleen: Unremarkable. No splenomegaly. Adrenal glands: Unremarkable. No mass. Kidneys and ureters: Unremarkable. No nephroureterolithiasis. No hydronephrosis. Stomach and bowel: Nonobstructive pattern. Scattered sigmoid colonic diverticula without peridiverticular fat stranding. Appendix: No evidence of appendicitis. Intraperitoneal space: Unremarkable. No free air. No significant fluid collection. Vasculature: Unremarkable. No abdominal aortic aneurysm. Lymph nodes: Unremarkable. No enlarged lymph nodes. Urinary bladder: Unremarkable as visualized. Reproductive: Unremarkable as visualized. Bones/joints: Unremarkable. No acute fracture. Soft tissues: Unremarkable. IMPRESSION: No acute findings.
--- NOTE | 2025-02-14 23:20 | [facility]H.EDGENADL ---
Discharge Plan Disposition Patient Disposition: Home, Self-Care Prescriptions Prescriptions: New lidocaine 5 % adhesive patch,medicated 1 patch topical DAILY PRN (Reason: pain) Qty: 30 0RF Rx Instructions: leave on most painful area for up to 12 hrs No Action omeprazole 40 mg capsule,delayed release(DR/EC) 40 mg PO BID Qty: 180 3RF atorvastatin 80 mg tablet 80 mg PO HS Patient Comments: TAKE 1 TABLET BY MOUTH ONCE DAILY carvedilol 3.125 mg tablet 3.125 mg PO BID aspirin 81 mg Tablet,Chewable 81 mg PO DAILY albuterol sulfate 90 mcg/actuation HFA aerosol inhaler 2 puff INHALATION Q4HP PRN (Reason: Shortness Of Breath) Breztri Aerosphere 160-9-4.8 mcg/actuation HFA aerosol inhaler 2 puff inhalation BID Patient Comments: INHALE 2 PUFFS TWICE DAILY furosemide 40 mg tablet 40 mg PO DAILY PRN (Reason: swelling) spironolactone 25 mg tablet 25 mg PO DAILY Patient Comments: TAKE 1 TABLET BY MOUTH ONCE DAILY coenzyme Q10 [Co Q-10] 200 mg Capsule 200 mg PO DAILY torsemide 20 mg tablet 20 mg PO DAILY Patient Comments: TAKE 1 TABLET BY MOUTH ONCE DAILY Jardiance 10 mg tablet 10 mg PO DAILY prednisone 20 mg Tablet 40 mg PO DAILY 5 Days Qty: 10 0RF dextromethorphan-guaifenesin 10-100 mg/5 mL Syrup 5 ml PO Q6HP PRN (Reason: Cough) 10 Days Qty: 100 0RF doxycycline hyclate 100 mg capsule 100 mg PO BID 7 Days Qty: 14 0RF Referrals Follow up/Referrals: Provider,Referral, MD [Primary Care Provider, Medical] - See instructions Activity Restrictions/Add. Instructions Additional Instructions/Restrictions: Please follow-up with your primary care provider. Please return to the emergency department if you develop any new or worsening symptoms or become concerned for your health. Clinical Impressions Clinical Impression: Pain, abdominal, RUQ, Chest pain, pleuritic Instructions Patient Instructions: DI for Acute Abdominal Pain Print Language Print Language: Telugu Discharge ED Provider: Joe Yang Adult HPI General Chief complaint: Abdominal Pain Stated complaint: Chest Pain Time Seen by Provider: 02/14/25 23:05 Mode of Arrival: Ambulatory Source of Information: Patient Description of Symptoms (Recalled from ER Triage Doc. by RN): Pt presents for evalation of chest pain. Pt states the pain is located to her right rib cage, states she still has her gallbladder. Denies n/v/d. rates pain as a 03/28. History of Present Illness HPI narrative: 69-year-old female with history of hypertension, hyperlipidemia, reflux, heart failure presents for right-sided thoracoabdominal pain. She reports it is severe, worse with deep breathing. She denies any nausea or vomiting. Reports that she gets some shortness of breath with the pain. She reports she has had a heart attack in the past. Pain started this evening. Related Data Home Medications ?Medication ?Instructions ?Recorded ?Confirmed albuterol sulfate 90 mcg/actuation 2 puff inhalation Q4HP PRN 09/18/22 05/26/23 aerosol inhaler Shortness Of Breath aspirin 81 mg chewable tablet 81 mg PO DAILY Heart health 09/18/22 05/26/23 atorvastatin 80 mg tablet 80 mg PO HS Cholesterol 09/18/22 05/26/23 budesonide 160 mcg-glycopyr 9 2 puff inhalation BID Breathing 09/18/22 05/26/23 mcg-formot 4.8 mcg/actuation HFA Problems inhaler (Breztri Aerosphere) carvedilol 3.125 mg tablet 3.125 mg PO BID High blood pressure 09/18/22 05/26/23 coenzyme Q10 200 mg capsule (Co 200 mg PO DAILY Supplement 05/26/23 05/26/23 Q-10) empagliflozin 10 mg tablet 10 mg PO DAILY Heart Failure 05/26/23 05/26/23 (Jardiance) furosemide 40 mg tablet 40 mg PO DAILY PRN swelling 05/26/23 05/26/23 spironolactone 25 mg tablet 25 mg PO DAILY Fluid 05/26/23 05/26/23 torsemide 20 mg tablet 20 mg PO DAILY Fluid 05/26/23 05/26/23 Previous Rx's ?Medication ?Instructions ?Recorded dextromethorphan-guaifenesin 10 5 ml PO Q6HP PRN Cough 10 days 05/29/23 mg-100 mg/5 mL oral syrup #100 mL doxycycline hyclate 100 mg capsule 100 mg PO BID 7 days #14 caps 05/29/23 prednisone 20 mg tablet 40 mg (2 x 20 mg) PO DAILY 5 days 05/29/23 #10 tabs omeprazole 40 mg capsule,delayed 40 mg PO BID Acid Reflux #180 caps 08/01/23 release lidocaine 5 % topical patch 1 patch topical DAILY PRN pain #30 02/15/25 ea Allergies Allergy/AdvReac Type Severity Reaction Status Date / Time procaine (From Novocain) Allergy Mild Rash Verified 05/29/23 13:19 cephalexin (From Keflex) AdvReac Rash Verified 01/17/23 11:56 [facility] Disclaimer: The information contained in this section may have been updated after the patient was seen, as this information can be updated by other users. Medical History Asthma-COPD overlap syndrome Breast cancer Thalassemia alpha carrier Surgical History H/O lumpectomy Hx of tonsillectomy Social History (Updated 05/26/23 @ 00:58 by Sue Calloway RN) Smoking Status: Never smoker alcohol intake: never current occupational status: employed Travel in the last 8 weeks?: None Other Medical History Have you received the Flu Vaccine for this season: No Have you received the Pneumonia Vaccine: No ROS Obtained: Yes All systems reviewed & no additional complaints except as documented Physical Exam General General appearance: alert and in no apparent distress Head Head exam: atraumatic and normocephalic Eye Eye exam: Present normal appearance, PERRL and EOMI ENT ENT exam: Present normal oropharynx and normal external ear exam Neck Neck exam: Present normal inspection and full ROM Chest Chest inspection: Present normal inspection and symmetric chest wall rise; Absent tenderness Respiratory Respiratory exam: Present normal lung sounds bilaterally; Absent respiratory distress Cardiovascular Cardiovascular exam: Present regular rate and normal rhythm Abdominal Exam Abdominal exam: Present soft and tenderness (Right upper quadrant); Absent distention or guarding Extremities Exam Extremities exam: Present normal inspection; Absent edema or joint swelling Back Exam Back exam: Present normal inspection; Absent tenderness Neurological Exam Neurological exam: Present alert and oriented X3; Absent motor sensory deficit Psychiatric Psychiatric exam: Present normal affect and normal mood Skin Skin exam: Present warm, dry and normal color Lymphatic Lymphatic Findings: no adenopathy Medical Decision Making Medical Records Medical records reviewed: Yes I reviewed the patient's medical records. Screening: Per USPSTF and CDC recommendations, given the prevalence of disease in our region, it is our hospital?s policy to screen for HIV and viral Hepatitis for all patients aged 18 and over and those with ongoing risk factors. [place] Inquiry Pt receiving controlled substance: No [place] was queried for this patient: No Vital Signs: 02/14/25 23:04 02/15/25 00:19 02/15/25 01:03 Temperature 98.5 F Temperature Source Oral Pulse Rate 87 82 Pulse Rate [Right] 85 Respiratory Rate 18 22 21 Blood Pressure 168/86 H 150/83 H Blood Pressure [Right Arm] 168/81 H Blood Pressure Mean [Right Arm] 110 Blood Pressure Source Automatic Cuff Automatic Cuff Blood Pressure Source [Right Arm] Automatic Cuff Blood Pressure Position Blood Pressure Position [Right Arm] Sitting 02 Sat by Pulse Oximetry 98 99 99 Oxygen Delivery Method Room Air Room Air Room Air 02/15/25 02:01 02/15/25 04:01 Temperature 98.2 F Temperature Source Oral Pulse Rate 75 76 Pulse Rate [Right] Respiratory Rate 18 16 Blood Pressure 131/64 133/79 Blood Pressure [Right Arm] Blood Pressure Mean [Right Arm] Blood Pressure Source Automatic Cuff Automatic Cuff Blood Pressure Source [Right Arm] Blood Pressure Position Supine Blood Pressure Position [Right Arm] 02 Sat by Pulse Oximetry 99 Oxygen Delivery Method Room Air Room Air Lab Data Lab results reviewed: Yes I reviewed the patient's lab results. Lab Results 02/14/25 00:15: WBC 6.7, RBC 4.42, Hgb 12.5, Hct 38.0, MCV 86.0, MCH 28.3, MCHC 32.9, RDW 14.5, Plt Count 292, MPV 9.5, Neut % (Auto) 53.3, Lymph % (Auto) 38.3, [place] % (Auto) 6.4, Eos % (Auto) 1.0, Baso % (Auto) 0.6, Neut # (Auto) 3.6, Lymph # (Auto) 2.6, [place] # (Auto) 0.4, Eos # (Auto) 0.1, Baso # (Auto) 0.0, D-Dimer 0.94 H, Sodium 145, Potassium 4.4, Chloride 109 H, Carbon Dioxide 31 H, Anion Gap 9.4, BUN 23 H, Creatinine 1.00, Estimated Creat Clear 77, Estimated GFR 55 L, Est GFR ( Amer) 67, Glucose 114 H, Calcium 9.8, Magnesium 1.9, Total Bilirubin 0.3, AST 34, ALT 28, Alkaline Phosphatase 165 H, Troponin I < 0.01, Total Protein 7.9, Albumin 4.5, Globulin 3.4 H, Albumin/Globulin Ratio 1.3 02/15/25 00:15: Lipase 49 02/15/25 03:16: Troponin I < 0.01 02/14/25 00:15 02/14/25 00:15 Orders (Tests/Meds): ED MEDICATIONS Discontinued Medications Generic Name Dose Route Start Last Admin Trade Name Freq PRN Reason Stop Dose Admin Acetaminophen 1,000 mg 02/14/25 23:20 02/14/25 23:55 Acetaminophen 500mg Tab PO 02/14/25 23:21 1,000 mg ONCE ONE Administration Aspirin 324 mg 02/14/25 23:20 02/14/25 23:55 Aspirin 81mg Chewable Tablet PO 02/14/25 23:21 324 mg ONCE ONE Administration Iopamidol 80 ml 02/15/25 01:47 02/15/25 01:48 Iopamidol-370 (76%);100ml Bottle IV 02/15/25 01:48 80 ml ONCE ONE Administration Lidocaine 1 each 02/15/25 03:51 02/15/25 03:55 Lidocaine 5% Transdermal Patch TD 02/15/25 03:52 1 each ONCE ONE Administration Ondansetron HCl 4 mg 02/14/25 23:20 02/15/25 00:50 Ondansetron 4mg/2ml Vial IV 02/14/25 23:21 Not Given ONCE ONE Sodium Chloride 50 ml 02/15/25 01:47 02/15/25 01:48 0.9 % Sodium Chloride 50 Ml Vial IV 02/15/25 01:48 50 ml ONCE ONE Administration Sodium Chloride 10 ml 02/15/25 01:47 02/15/25 01:48 Sodium Chloride 0.9% 10ml Syr (Rad Only) IV 02/15/25 01:48 10 ml ONCE ONE Administration ORDERS Category Date Time Status CT abdomen pelvis w con Stat Cat Scan 02/14/25 23:[address] angio chest PE protocol Stat Cat Scan 02/15/25 01:32 Completed CBC w/Auto Diff [Complete Blood Count Auto Diff] Stat Lab 02/14/25 00:15 Completed CMP [Comprehensive Metabolic Panel] Stat Lab 02/14/25 00:15 Completed D-Dimer Stat Lab 02/14/25 00:15 Completed Lipase Stat Lab 02/15/25 00:15 Completed Magnesium Stat Lab 02/14/25 00:15 Completed Troponin I Q3H Lab 02/14/25 00:15 Completed Troponin I Q3H Lab 02/15/25 03:16 Completed Medical Decision Narrative: 69-year-old female with history of hypertension, hyperlipidemia, coronary artery disease, heart failure presents for right upper quadrant/right chest pain. History was obtained via interactive discussion with patient, family, chart review. On arrival, patient is [afebrile, hemodynamically stable, satting appropriately, alert, oriented x4, GCS 15], moving all extremities spontaneously. Full physical exam performed and significant for right upper quadrant tenderness. Differential includes but is not limited to cholecystitis, symptomatic cholelithiasis, gastroenteritis, pancreatitis, PE, ACS, pneumonia, musculoskeletal chest pain. Patient was given aspirin, Tylenol, GI cocktail for symptomatic management and correction of underlying abnormalities. Workup initiated including CBC CMP D-dimer troponin EKG lipase CT Abdo pelvis with IV contrast. On re-evaluation, patient [remains afebrile, HD stable.] Laboratory workup independently interpreted by me and significant for positive dimer, will follow-up with CT PE, negative initial troponin, minimally elevated alk phos, otherwise normal LFTs. No significant leukocytosis.. Imaging independently interpreted by me and significant for no evidence of PE or pneumonia, no evidence of cholecystitis or intra-abdominal pathology. See radiology read for full review of final results. Repeat troponin returns undetectably low. Given patient history, exam and workup, patient's presentation most likely represents noncardiac chest pain. The underlying etiology remains unclear, but no evidence of emergent pathology at this time. These findings were communicated with patient and she was discharged in stable condition with return precautions.. Procedures Risk/Benefits of Procedure(s) Were Explained: Yes Critical Care Critical Care Time Critical Care Time: No
[2025-02-14] MEDS: ASPIRIN 81MG CHEWABLE TABLET 324 MG PO (23:55)
[2025-02-14] MEDS: ACETAMINOPHEN 500MG TAB 1000 MG PO (23:55)
[2025-02-15 00:19] VITALS: BP 168/86; PULSE 87; RESP 22; O2SAT 99
[2025-02-15 00:25] LABS: Hematocrit 38.0 % (37.0-47.0); Hemoglobin 12.5 g/dL (12.2-16.2); Immature Granulocytes % 0.4 %; Mean Corpuscular HGB Conc 32.9 g/dL (31.8-35.4); Mean Corpuscular Hemoglobin 28.3 pg (27.0-31.2); Mean Corpuscular Volume 86.0 fl (81-99); Nucleated Red Blood Cells % 0 %; Platelet Count 292 K/mm3 (142-424); Red Blood Count 4.42 M/mm3 (4.20-5.40); Red Cell Distribution Width-SD 45.3 fL; White Blood Count 6.7 K/mm3 (4.8-10.8)
[2025-02-15 01:03] VITALS: BP 150/83; PULSE 82; RESP 21; O2SAT 99
[2025-02-15 01:14] LABS: Albumin Level 4.5 g/dl (3.5-5.0); Chloride 109 mmol/L (98-107); Sodium 145 mmol/L (136-145)
[2025-02-15 01:15] LABS: Potassium 4.4 mmoL/L (3.5-5.1)
[2025-02-15 01:17] LABS: Alanine Aminotransferase 28 U/L (12-78); Alkaline Phosphatase 165 U/L (38-126); Anion Gap 9.4 mEq/L (5-15); Aspartate Amino Transferase 34 U/L (14-36); Bilirubin,Total 0.3 mg/dl (0.2-1.3); Blood Urea Nitrogen 23 mg/dl (7-17); Carbon Dioxide 31 mmol/L (22.0-30.0); Creatinine Clearance Estimated 77 mL/min (50-200); Creatinine,Serum 1.00 mg/dl (0.52-1.04); Estimated Glomerular Filt Rate 55 ml/min (>60); GFR (African American) 67 ML/MIN (>60)
[2025-02-15 01:18] LABS: Albumin/Globulin Ratio 1.3 (1.1-1.8); Calcium 9.8 mg/dl (8.4-10.2); Globulin 3.4 g/dL (1.3-3.2); Glucose 114 mg/dl (74-100); Magnesium 1.9 mg/dl (1.6-2.3); Total Protein,Serum 7.9 g/dl (6.3-8.2)
--- NOTE | 2025-02-15 01:22 | HMH.ITSTN ---
ER doctor called @[phone] and wanted to wait on D-Dimer to come back due to patient experiencing chest pain.
[2025-02-15 01:27] LABS: D-Dimer 0.94 ug/mL (0.0-0.5)
[2025-02-15 01:30] LABS: Troponin I < 0.01 ng/ml (0.00-0.034)
--- NOTE | 2025-02-15 01:32 | CT_ITS ---
PROCEDURE INFORMATION: Exam: CTA Chest Without And With Contrast Exam date and time: 02/15/2025 1:48 AM Age: 69 years old Clinical indication: Other: Right cp, positive dimer TECHNIQUE: Imaging protocol: Computed tomographic angiography of the chest without and with contrast. Exam focused on the arteries. 3D rendering (Not supervised by radiologist): MIP and/or 3D reconstructed images were created by the technologist. Radiation optimization: All CT scans at this facility use at least one of these dose optimization techniques: automated exposure control; mA and/or kV adjustment per patient size (includes targeted exams where dose is matched to clinical indication); or iterative reconstruction. Contrast material: ISOVUE; Contrast volume: 80 ml; Contrast route: INTRAVENOUS (IV); COMPARISON: CT ANGIO CHEST PE PROTOCOL 05/26/2023 2:51 AM FINDINGS: Pulmonary arteries: No central or segmental pulmonary arterial intraluminal filling defects identified. Aorta: Mild atherosclerotic calcification of thoracic aorta without aneurysm or obvious dissection. Lungs: Right lower lobar calcified pulmonary nodule. Minimal left subsegmental atelectasis. Pleural spaces: Unremarkable. No pneumothorax. No pleural effusion. Heart: Unremarkable. No cardiomegaly. No pericardial effusion. Lymph nodes: Unremarkable. No enlarged lymph nodes. Bones/joints: Unremarkable. No acute fracture. Soft tissues: Unremarkable. IMPRESSION: No central or segmental pulmonary arterial embolism identified.
[2025-02-15 01:41] LABS: Lipase 49 U/L (23-300)
[2025-02-15] MEDS: SODIUM CHLORIDE 0.9% 10ML SYR (RAD ONLY) 10 ML IV (01:48)
[2025-02-15] MEDS: IOPAMIDOL-370 (76%);100ML BOTTLE 80 ML IV (01:48)
[2025-02-15] MEDS: 0.9 % SODIUM CHLORIDE 50 ML VIAL IV (01:48)
[2025-02-15 02:01] VITALS: BP 131/64; PULSE 75; RESP 18; O2SAT 99
[2025-02-15 03:48] LABS: Troponin I < 0.01 ng/ml (0.00-0.034)
[2025-02-15] MEDS: LIDOCAINE 5% TRANSDERMAL PATCH 1 EACH TD (03:55)
[2025-02-15 04:01] VITALS: BP 133/79; PULSE 76; RESP 16; TEMP 36.8; O2SAT 96
== END 2025-02-15 04:02 | disposition home or self-care (01) ==
PROVIDERS: Emergency Provider Emergency Medicine
DX: R10.11 Right upper quadrant pain (principal); R09.1 Pleurisy; I10 Essential (primary) hypertension; E78.5 Hyperlipidemia, unspecified; Z86.79 Personal history of other diseases of the circulatory system
CPT/HCPCS: 71275; 74177; 80053; 83690; 83735; 84484; 85025; 85378; 93005; 99284; 99285; Q9967